=== PATIENT | male | born 1960 | race Caucasian/White ===

== ENCOUNTER 2021-08-14 17:40 | Inpatient (IN) | payer BC ==
[~2021-08-14] VITALS: Ht 162 cm; Wt 113.0 kg
[~2021-08-14 17:40] MED LIST: HYDR-34 PO; LISI20TA PO; LISINOPRIL; LOVA40TA2 PO; LOVASTATIN; OMEP20TA2 PO; TEMA30CA PO; TEMAZEPAM
--- NOTE | 2021-08-14 17:56 | ED Cough/URI ---
General Chief Complaint: COVID19 Suspect/Confirmed Stated Complaint: SOB Source: patient Exam Limitations: no limitations History of Present Illness Date Seen by Provider: Aug 14, 2021 Time Seen by Provider: 17:50 Initial Comments Patient is a 61-year-old male with known home Covid exposure developed Covid symptoms approximately 12 days ago who presents with progressive shortness of breath, chest wall pain with coughing and syncope. Patient's spouse tested po sitive for Covid 3 weeks ago. Patient started developing aches pains fever headache 12 days ago. He was placed on prednisone Zithromax and given an albuterol inhaler. Today patient had syncope with mild exertion. He is hypoxic on EMS arrival requiring 6 L of oxygen by nasal cannula to maintain oxygen greater than 90%. He denies current fever. No leg pain swelling. No other a cute symptoms or complaints. No history of COPD, asthma, CAD, congestive heart failure or diabetes Timing/Duration: getting worse, changing over time Severity/Quality: dry cough Prior Episodes/Possible Cause: other Modifying Factors: Improves With Oxygen, Improves With Other Associated Symptoms: cough, dizziness, lightheadedness, shortness of breath Allergies and Home Medications Allergies Coded Allergies: No Known Drug Allergies (Unverified , 09/18/11) Patient Home Medication List Home Medication List Reviewed: Yes Hydrocodone Bit/Acetaminophen (Lortab 7.5 Mg Tablet) 1 Ea Tablet, 1 EA PO Q 4 - 6 HR PRN PRN, (Reported) Entered as Reported by: FLORES LIMA on 06/06/12 0952 Lisinopril (Prinivil) 20 Mg Tablet, 20 MG PO BID, (Reported) Entered as Reported by: CANDIS CONTRERAS on 06/05/12 1632 Lovastatin (Lovastatin 40 Mg) 40 Mg Tablet, 1 EACH PO HS, (Reported) Entered as Reported by: CANDIS CONTRERAS on 06/05/12 1632 Omeprazole (Omeprazole) 20 Mg Tablet.dr, 20 MG PO BID, (Reported) Entered as Reported by: CANDIS CONTRERAS on 06/05/12 1632 Temazepam (Temazepam) 30 Mg Capsule, 30 MG PO HS, (Reported) Entered as Reported by: CANDIS CONTRERAS on 06/05/12 1706 Review of Systems Review of Systems Constitutional: see HPI EENTM: see HPI Respiratory: see HPI Cardiovascular: see HPI Gastrointestinal: see HPI Genitourinary: see HPI Musculoskeletal: see HPI Skin: see HPI Psychiatric/Neurological: See HPI Hematologic/Lymphatic: See HPI Immunological/Allergic: see HPI All Other Systems Reviewed Negative Unless Noted: Yes Past Kmywklh-Uuynkt-Dtwadm Hx Patient Social History Tobacco Use?: Yes Past Medical History Reproductive Disorders: No Physical Exam Vital Signs - First Documented 08/14/21 17:40 Temp 36.7 Pulse 110 Resp 25 B/P (MAP) 110/70 (83) Pulse Ox 93 O2 Delivery Room Air O2 Flow Rate 6.00 Capillary Refill : Height: 0'70.00" Weight: 159lbs. oz. 72.818377on; BMI Method: General Appearance: other (Acutely ill-appearing generally weak,) Eyes: Bilateral Eye Normal Inspection, Bilateral Eye PERRL, Bilateral Eye EOMI HEENT: PERRL/EOMI Neck: non-tender, supple Respiratory: decreased breath sounds, rhonchi, other Cardiovascular: tachycardia Gastrointestinal: non tender, soft Extremities: normal range of motion, non-tender Neurologic/Psychiatric: no motor/sensory deficits, alert, oriented x 3 Skin: other (Clammy) Focused Exam Sepsis Stage: Ruled Out Lactate Level 08/14/21 17:53: Lactic Acid Level 4.10*H Lactic Acid Level Laboratory Tests Test 08/14/21 17:53 Lactic Acid Level 4.10 MMOL/L (0.50-2.00) *H Progress/Results/Core Measures Suspected Sepsis SIRS Temperature: Pulse: Respiratory Rate: Laboratory Tests 08/14/21 17:53: White Blood Count 14.6H Blood Pressure / Mean: 08/14/21 17:53: Lactic Acid Level 4.10*H Laboratory Tests 08/14/21 17:53: Creatinine 0.99, INR Comment 0.9, Platelet Count 165, Total Bilirubin 0.5 Results/Orders Lab Results Laboratory Tests Test 08/14/21 17:53 08/14/21 18:17 Range/Units White Blood Count 14.6 H 4.3-11.0 10^3/uL Red Blood Count 4.56 4.30-5.52 10^6/uL Hemoglobin 14.2 13.3-17.7 g/dL Hematocrit 41 40-54 % Mean Corpuscular Volume 89 80-99 fL Mean Corpuscular Hemoglobin 31 25-34 pg Mean Corpuscular Hemoglobin Concent 35 32-36 g/dL Red Cell Distribution Width 13.1 10.0-14.5 % Platelet Count 165 130-400 10^3/uL Mean Platelet Volume 10.4 9.0-12.2 fL Immature Granulocyte % (Auto) 1 % Neutrophils (%) (Auto) 91 H 42-75 % Lymphocytes (%) (Auto) 5 L 12-44 % Monocytes (%) (Auto) 3 0-12 % Eosinophils (%) (Auto) 0 0-10 % Basophils (%) (Auto) 0 0-10 % Neutrophils # (Auto) 13.3 H 1.8-7.8 X 10^3 Lymphocytes # (Auto) 0.7 L 1.0-4.0 X 10^3 Monocytes # (Auto) 0.5 0.0-1.0 X 10^3 Eosinophils # (Auto) 0.0 0.0-0.3 10^3/uL Basophils # (Auto) 0.0 0.0-0.1 10^3/uL Immature Granulocyte # (Auto) 0.1 0.0-0.1 10^3/uL Prothrombin Time 12.4 12.2-14.7 SEC INR Comment 0.9 0.8-1.4 Activated Partial Thromboplast Time 24 24-35 SEC Sodium Level 123 *L 135-145 MMOL/L Potassium Level 6.0 H 3.6-5.0 MMOL/L Chloride Level 90 L 98-107 MMOL/L Carbon Dioxide Level 18 L 21-32 MMOL/L Anion Gap 15 H 5-14 MMOL/L Blood Urea Nitrogen 30 H 7-18 MG/DL Creatinine 0.99 0.60-1.30 MG/DL Estimat Glomerular Filtration Rate 77 BUN/Creatinine Ratio 30 Glucose Level 177 H 70-105 MG/DL Lactic Acid Level 4.10 *H 0.50-2.00 MMOL/L Calcium Level 8.0 L 8.5-10.1 MG/DL Corrected Calcium 8.7 8.5-10.1 MG/DL Total Bilirubin 0.5 0.1-1.0 MG/DL Aspartate Amino Transf (AST/SGOT) 106 H 5-34 U/L Alanine Aminotransferase (ALT/SGPT) 43 0-55 U/L Alkaline Phosphatase 54 40-136 U/L Troponin I < 0.30 <0.30 NG/ML C-Reactive Protein 5.98 H <0.50 MG/DL Total Protein 6.6 6.4-8.2 GM/DL Albumin 3.1 L 3.2-4.5 GM/DL Blood Gas Puncture Site RIGHT WRIST Blood Gas Patient Temperature 37.7 Arterial Blood pH 7.45 H 7.37-7.43 Arterial Blood Partial Pressure CO2 32 L 35-45 MMHG Arterial Blood Partial Pressure O2 60 L 79-93 MMHG Arterial Blood HCO3 22 L 23-27 MMOL/L Arterial Blood Total CO2 23.2 21.0-31.0 MMOL/L Arterial Blood Oxygen Saturation 92 L 94-100 % Arterial Blood Base Excess -1.1 -2.5-2.5 MMOL/L Roberth Test NEG Blood Gas Ventilator Setting NO Blood Gas Inspired Oxygen 6 My Orders Silvia - STEPHAN MATTSON DO Vital Signs: Every 4 Hours (Or (08/14/21 17:56) Monitor-Rhythm Ecg Trace Only (08/14/21 17:56) Cbc With Automated Diff (08/14/21 17:56) Comprehensive Metabolic Panel (08/14/21 17:56) Ferritin (08/14/21 17:56) Crp Fs (08/14/21 17:56) Troponin I Fs (08/14/21 17:56) Lactic Acid Analyzer (08/14/21 17:56) Protime With Inr (08/14/21 17:56) Partial Thromboplastin Time (08/14/21 17:56) Ekg Tracing (08/14/21 17:56) Albuterol Inhaler (Albuterol) (08/14/21 18:00) Arterial Blood Gas (08/14/21 17:56) Chest 1 View Ap/Pa Only (08/14/21 17:56) Dexamethasone Injection (Decadron Injec (08/14/21 18:00) Manual Differential (08/14/21 17:53) Fibrinogen (08/14/21 17:53) LDH (08/14/21 17:53) Piperacillin Sodium/Tazobactam (Zosyn Vi (08/14/21 18:45) Ns Iv 1000 Ml (Sodium Chloride 0.9%) (08/14/21 18:45) Vital Signs/I&O 08/14/21 17:40 Temp 36.7 Pulse 110 Resp 25 B/P (MAP) 110/70 (83) Pulse Ox 93 O2 Delivery Room Air O2 Flow Rate 6.00 Capillary Refill : Departure Communication (Admissions) Chest x-ray: Diffuse interstitial disease consistent with Covid adenitis per radiology report EKG: Sinus tach, no acute ST-T wave changes. Patient maintained on oxygen, IV fluids, Decadron, [address] angio ordered and pending. Will admit to [facility] Impression Primary Impression: Acute respiratory failure with hypoxia Additional Impressions: COVID Hyponatremia Renal insufficiency Hyperkalemia Disposition: ADMITTED INPATIENT Condition: Critical Admissions Decision to Admit Reason: Admit from ER (General) Decision to Admit/Date: Aug 14, 2021 Time/Decision to Admit Time: 18:37 (Dr. Pascual) Transfer Method of Transfer: EMS Departure-Patient Inst. Referrals: JONATAN ENGLISH DO (PCP/Family) Primary Care Physician STEPHAN MATTSON DO Aug 14, 2021 17:56
[2021-08-14] MEDS ORDERED: RT-ALBUTEROL HFA 8.5 GM INHALER IH PRN (18:00)
[2021-08-14 18:03] LABS: BASOPHILS % (AUTO) 0 % (0-10); EOSINOPHILS % (AUTO) 0 % (0-10); HEMATOCRIT 41 % (40-54); HEMOGLOBIN 14.2 g/dL (13.3-17.7); LYMPHOCYTES # (AUTO) 0.7 X 10^3 (1.0-4.0); LYMPHOCYTES % (AUTO) 5 % (12-44); MEAN CORPUSCULAR HEMOGLOBIN 31 pg (25-34); MEAN CORPUSCULAR HGB CONC 35 g/dL (32-36); MEAN CORPUSCULAR VOLUME 89 fL (80-99); MEAN PLATELET VOLUME 10.4 fL (9.0-12.2); MONOCYTES # (AUTO) 0.5 X 10^3 (0.0-1.0); MONOCYTES % (AUTO) 3 % (0-12); NEUTROPHILS # (AUTO) 13.3 X 10^3 (1.8-7.8); NEUTROPHILS % (AUTO) 91 % (42-75); PLATELET COUNT 165 10^3/uL (130-400); WHITE BLOOD COUNT 14.6 10^3/uL (4.3-11.0)
[2021-08-14 18:11] LABS: INR 0.9 (0.8-1.4); PROTHROMBIN TIME PATIENT 12.4 SEC (12.2-14.7)
--- NOTE | 2021-08-14 18:19 | Diagnostic Imaging Report ---
INDICATION: Shortness of air. COVID positive patient. COMPARISON: None. FINDINGS: Single frontal radiographic view of the chest was obtained and demonstrates low inspiratory volumes with moderate diffuse scattered patchy and confluent mixed interstitial and alveolar infiltrate. There is no large effusion or pneumothorax. Cardiac silhouette and pulmonary vasculature are within normal limits. Osseous structures show no gross acute abnormalities. IMPRESSION: 1. Moderate bilateral diffuse infiltrate/pneumonia. Correlation with COVID status is recommended. Dictated by: Dictated on workstation # [id number]
[2021-08-14 18:25] LABS: ALANINE AMINOTRANSFERASE 43 U/L (0-55); ALBUMIN 3.1 GM/DL (3.2-4.5); ALKALINE PHOSPHATASE 54 U/L (40-136); BILIRUBIN,TOTAL 0.5 MG/DL (0.1-1.0); BUN/CREATININE RATIO 30; CARBON DIOXIDE 18 MMOL/L (21-32); CHLORIDE 90 MMOL/L (98-107); CREATININE SERUM 0.99 MG/DL (0.60-1.30); GFR ESTIMATED 77; GLUCOSE 177 MG/DL (70-105); TOTAL PROTEIN 6.6 GM/DL (6.4-8.2)
[2021-08-14 18:28] LABS: SODIUM 123 MMOL/L (135-145)
[2021-08-14 18:29] LABS: ABG BASE EXCESS -1.1 MMOL/L (-2.5-2.5); ABG OXYGEN SATURATION 92 % (94-100); ABG PCO2 32 MMHG (35-45); ABG PH 7.45 (7.37-7.43); ABG PO2 60 MMHG (79-93); ABG TCO2 23.2 MMOL/L (21.0-31.0); ALLENS TEST NEG; INSPIRED O2 6; VENTILATOR NO
[2021-08-14 18:30] LABS: PATIENT TEMP 37.7
[2021-08-14] MEDS ORDERED: PIPERACILLIN SODIUM/TAZOBACTAM 4.5 GM in NS (IVPB) 100 ML IV ONE (18:45)
[2021-08-14] MEDS ORDERED: NS IV 1000 ML 1,000 ML IV SCH (18:45)
[2021-08-14] MEDS ORDERED: IOHEXOL 350 MG/ML 150 ML (OMNIPAQUE 350) VIAL IV ONE (19:00)
[2021-08-14] MEDS ORDERED: HOLD METFORMIN - RECEIVED CONTRAST 20 ML VIAL IV SCH (19:00)
[2021-08-14] MEDS ORDERED: NS 100 ML (IVPB) BAG IV ONE (19:00)
[2021-08-14 19:15] LABS: LYMPHOCYTES % (MANUAL) 6 %; MONOCYTES % (MANUAL) 2 %; NEUTROPHILS % (MANUAL) 92 %
[2021-08-14] MEDS ORDERED: HEParin DRIP 25000 UNIT/500ML 500 ML IV ONE (19:30)
[2021-08-14] MEDS ORDERED: HEParin 1000 UNIT/ML (10ML VIAL) FOR BOLUS IV SCH (19:30)
--- NOTE | 2021-08-14 19:30 | Diagnostic Imaging Report ---
EXAMINATION: CT angiography of the chest. TECHNIQUE: Contrast enhanced thin section helical images were obtained through the chest with intravenous contrast timed for the optimal opacification of the arterial structures per CTA protocol. Post-processing, reconstructions and interpretation of angiographic images of the vessels was performed. 3D MIP reconstructions were performed and reviewed. All CT scans use one or more of the following dose optimizing techniques: automated exposure control, MA and/or KvP adjustment based on patient size and exam type or iterative reconstruction. HISTORY: SOA, high risk PE. COMPARISON: None available. FINDINGS: Vascular: Filling defect within the right lower lobe segmental branch (series 11 image 52). The aorta is normal in caliber. Thyroid: The thyroid is normal. Mediastinum: Heart size is normal without significant pericardial effusion. No suspicious lymphadenopathy. Lungs and airways: There are patchy groundglass opacities and reticulations throughout both lungs. No pleural effusion or pneumothorax. The airways are normal. Upper abdomen: The subphrenic structures are normal. Musculoskeletal: Degenerative changes of the spine without suspicious osseous lesion or compression fracture. IMPRESSION: 1. Likely filling defect within a segmental branch of the right lower lobe pulmonary artery. 2. Patchy groundglass opacities and articulations throughout both lungs compatible with pneumonia. These findings were communicated to Dr. Mendez by Dr. Rupesh Vega at 7:25 PM on 08/14/2021. Dictated by: Dictated on workstation # [id number]
--- NOTE | 2021-08-14 22:00 | Tele-ICU Consult ---
History of Present Illness History of Present Illness Date Seen by Provider: Aug 14, 2021 Time Seen by Provider: 22:00 History of Present Illness 61 yo M came to ED with cough, SOB, multiple opacities on CXR and CT, Spouse recently tested positive for COVID. Pt has had Sx for 12 days. ED note mentions syncopal episode today and needing 6 lpm NC to maintain SpO2 95%. ABG 7.45/32/60 No Hx of asthma COPD, CAD, DM, CHF, WBC 14.6, LA 4, Hb 14.2, coagulation ok, will order d dimer, EKG shows sinus tach, QTc 427 Takes SAGAR, statin, + smoker, Started on IV Zosyn, Decadron, CTA also showed a pikely filling defect in segmental branch of RLL A] COVID PNA, small segmental pulm emb would continue on IV heparin, decadron, prone if can tolerate If worsens IV tociliumab Allergies and Home Medications Allergies Coded Allergies: No Known Drug Allergies (Unverified , 09/18/11) Home Medications Hydrocodone Bit/Acetaminophen 1 Ea Tablet, 1 EA PO Q 4 - 6 HR PRN PRN, (Reported) Lisinopril 20 Mg Tablet, 20 MG PO BID, (Reported) Lovastatin 40 Mg Tablet, 1 EACH PO HS, (Reported) Omeprazole 20 Mg Tablet.dr, 20 MG PO BID, (Reported) Temazepam 30 Mg Capsule, 30 MG PO HS, (Reported) Past Medical/Social/Family Hx Patient Social History Tobacco Use?: No Smoking Status: Never a Smoker Smokeless Tobacco Frequency: Never a User Use of E-Cig and/or Vaping dev: No Substance use?: No Alcohol Use?: Yes Alcohol type: Wine Alcohol Frequency: Once in a while Pt stated abuse/neglect: No Immunizations Up To Date Influenza Vaccine Up-to-Date: No; Not Current Current Status Advance Directives: Yes Advance Directive Location: Home Communicates: Verbally Primary Language: Chinese Preferred Spoken Language: Chinese Is interpretation needed?: No Sensory deficits: Vision impairment, Hearing impairment Additional sensory deficits: Some hearing. Vision impairment-trifocals Review of Systems Constitutional: see HPI EENTM: see HPI Respiratory: see HPI Cardiovascular: see HPI Gastrointestinal: see HPI Genitourinary: see HPI Musculoskeletal: see HPI Skin: see HPI Psychiatric/Neurological: See HPI Sepsis Event Evaluation Height, Weight, BMI Height: 0'70.00" Weight: 159lbs. oz. 72.666114qq; 247.13 BMI Method: Exam Exam Patient acknowledged, consented, and participated in this virtual visit which was conducted using real time audio/video Vital Signs Date Time Temp Pulse Resp B/P (MAP) Pulse Ox O2 Delivery O2 Flow Rate FiO2 08/14/21 21:32 36.1 98 20 122/80 95 Nasal Cannula 6.00 08/14/21 20:45 70 22 98/54 93 Nasal Cannula 6.00 08/14/21 17:40 36.7 110 25 110/70 (83) 93 Room Air 6.00 Height & Weight Height: 0'70.00" Weight: 159lbs. oz. 72.596460nv; 247.13 BMI Method: General Appearance: Mild Distress Respiratory: Decreased Breath Sounds Cardiovascular: Tachycardia Capillary Refill: Less Than 3 Seconds Gastrointestinal: normal bowel sounds, non tender, soft Results Lab Laboratory Tests 08/14/21 17:53 Assessment/Plan Assessment/Plan eICU admit note 61 yo M came to ED with cough, SOB, multiple opacities on CXR and CT, Spouse recently tested positive for COVID. Pt has had Sx for 12 days. ED note mentions syncopal episode today and needing 6 lpm NC to maintain SpO2 95%. ABG 7.45/32/60 No Hx of asthma COPD, CAD, DM, CHF, WBC 14.6, LA 4, Hb 14.2, coagulation ok, will order d dimer, EKG shows sinus tach, QTc 427 Takes SAGAR, statin, + smoker, Started on IV Zosyn, Decadron, CTA also showed a pikely filling defect in segmental branch of RLL A] COVID PNA, small segmental pulm emb would continue on IV heparin, decadron, prone if can tolerate If worsens IV tociliumab Also will do blood cultures, potassium 6.0, will give 15 g Kayexalate, Praneeth Alex MD Critical Care: Critically Ill Patient Time spent with patient (mins): 20 CINDY ALEX MD Aug 14, 2021 22:00
[2021-08-14] MEDS ORDERED: SOD POLYSTERENE 15 GM/60 ML (KAYEXALATE) UNIT DOSE PO ONE (22:30)
[2021-08-14] MEDS: RT-ALBUTEROL HFA 8.5 GM INHALER IH SCH (22:37)
[2021-08-14] MEDS: NS IV 1000 ML 1,000 ML IV SCH (23:08)
--- NOTE | 2021-08-15 01:34 | Progress Note ---
Standard Progress Note Progress Notes/Assess & Plan Date Seen by a Provider: Aug 15, 2021 Time Seen by a Provider: 01:29 Progress/Assessment & Plan called for lactate, had been 4, then down to 2.3 x 2 now 3.7, not in resp distress, BP ok, HR ok, will repeat in 2 hours along with BMP continue abx Potassium was 6.0, Kayexlate ordered, There is a medication order for po and IV potassium. I asked RN not to give any more potassium. Praneeth Alex MD Focused Exam Lactate Level 08/14/21 20:02: Lactic Acid Level 2.72*H 08/14/21 22:22: Lactic Acid Level 2.33*H 08/15/21 00:15: Lactic Acid Level 3.76*H Lactic Acid Level Laboratory Tests Test 08/14/21 22:22 08/15/21 00:15 Lactic Acid Level 2.33 MMOL/L (0.50-2.00) *H 3.76 MMOL/L (0.50-2.00) *H CINDY ALEX MD Aug 15, 2021 01:34
[2021-08-15] MEDS: PIPERACILLIN/TAZO 4.5 GM/NS 100 ML IV SCH ×6 (01:48→17:29)
[2021-08-15] MEDS: RT-ALBUTEROL HFA 8.5 GM INHALER IH SCH ×6 (02:34→22:47)
[2021-08-15 03:20] LABS: POTASSIUM 4.5 MMOL/L (3.6-5.0)
[2021-08-15 03:21] LABS: CALCIUM 7.9 MG/DL (8.5-10.1)
[2021-08-15 03:26] LABS: CREATININE SERUM 1.05 MG/DL (0.60-1.30)
[2021-08-15 05:50] LABS: BASOPHILS % (AUTO) 0 % (0-10); EOSINOPHILS % (AUTO) 0 % (0-10); HEMATOCRIT 40 % (40-54); HEMOGLOBIN 13.3 g/dL (13.3-17.7); LYMPHOCYTES # (AUTO) 0.8 10^3/uL (1.0-4.0); LYMPHOCYTES % (AUTO) 7 % (12-44); MEAN CORPUSCULAR HEMOGLOBIN 30 pg (25-34); MEAN CORPUSCULAR HGB CONC 34 g/dL (32-36); MEAN CORPUSCULAR VOLUME 90 fL (80-99); MEAN PLATELET VOLUME 9.3 fL (9.0-12.2); MONOCYTES # (AUTO) 0.5 10^3/uL (0.0-1.0); MONOCYTES % (AUTO) 4 % (0-12); NEUTROPHILS # (AUTO) 10.5 10^3/uL (1.8-7.8); NEUTROPHILS % (AUTO) 89 % (42-75); PLATELET COUNT 263 10^3/uL (130-400); WHITE BLOOD COUNT 11.8 10^3/uL (4.3-11.0)
[2021-08-15 06:01] LABS: ALBUMIN 3.1 GM/DL (3.2-4.5); POTASSIUM 4.2 MMOL/L (3.6-5.0)
[2021-08-15 06:02] LABS: CALCIUM 7.9 MG/DL (8.5-10.1)
[2021-08-15 06:04] LABS: TOTAL PROTEIN 5.7 GM/DL (6.4-8.2)
[2021-08-15] MEDS: NS IV 1000 ML 1,000 ML IV SCH ×2 (06:04→14:18)
[2021-08-15 06:05] LABS: BILIRUBIN,TOTAL 0.5 MG/DL (0.1-1.0)
[2021-08-15 06:07] LABS: CREATININE SERUM 1.01 MG/DL (0.60-1.30)
[2021-08-15 06:10] LABS: MAGNESIUM 1.9 MG/DL (1.6-2.4)
--- NOTE | 2021-08-15 06:14 | Progress Note ---
Standard Progress Note Progress Notes/Assess & Plan Date Seen by a Provider: Aug 15, 2021 Time Seen by a Provider: 06:13 Progress/Assessment & Plan Lactate improved, has high bladder residual, > 800 mL will insert Cam catheter Praneeth Farmer MD Final Diagnosis urinary retention Focused Exam Lactate Level 08/15/21 00:15: Lactic Acid Level 3.76*H 08/15/21 03:02: Lactic Acid Level 2.94*H 08/15/21 05:25: Lactic Acid Level Laboratory Tests Test 08/15/21 03:02 08/15/21 05:25 Lactic Acid Level 2.94 MMOL/L (0.50-2.00) *CINDY JOY MD Aug 15, 2021 06:14
--- NOTE | 2021-08-15 07:53 | History & Physical-Hospitalist ---
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 He is unvaccinated. Patient was found to have severe hyponatremia of 123 and elevated white count of 14,000. Patient was seen by eICU and I appreciate their management. Patient appears to have high risk for ventilation. Source: patient Exam Limitations: no limitations Date Seen 08/15/21 Time Seen by a Provider: 11:00 Attending Physician Cherie Pascual Bradley P Aprn Referring Physician Date of Admission Aug 14, 2021 at 21:25 Home Medications & Allergies Home Medications Reviewed patient Home Medication Reconciliation performed by pharmacy medication reconciliations agriculture technician and/or nursing. Patients Allergies have been reviewed. Allergies Allergies Coded Allergies No Known Drug Allergies ([id number]/29/11) Past Xvaqoyv-Vqqujt-Mvfxxl Hx Patient Social History Marrital Status: Employed/Student: employed Tobacco Use?: No Smoking Status: Never a Smoker Smokeless Tobacco Frequency: Never a User Use of E-Cig and/or Vaping dev: No Substance use?: No Alcohol Use?: Yes Alcohol type: Wine Alcohol Frequency: Once in a while Pt feels they are or have been: No Current Status Advance Directives: Yes Advance Directive Location: Home Communicates: Verbally Primary Language: Citizen [place] Preferred Spoken Language: Citizen [place] Is interpretation needed?: No Sensory deficits: Vision impairment, Hearing impairment Additional sensory deficits: Some hearing. Vision impairment-trifocals Past Medical History Sleep Apnea Currently Using CPAP: No Currently Using BIPAP: No Review of Systems Constitutional: see HPI, dizziness, fever, malaise, weakness EENTM: no symptoms reported Respiratory: cough, dyspnea on exertion Cardiovascular: no symptoms reported Gastrointestinal: loss of appetite Genitourinary: no symptoms reported Musculoskeletal: no symptoms reported Skin: no symptoms reported Psychiatric/Neurological: No Symptoms Reported All Other Systems Reviewed Negative Unless Noted: Yes Physical Exam Physical Exam Vital Signs Vital Signs - First Documented 08/14/21 17:40 Temp 36.7 Pulse 110 Resp 25 B/P (MAP) 110/70 (83) Pulse Ox 93 O2 Delivery Room Air O2 Flow Rate 6.00 Capillary Refill : Less Than 3 Seconds Height, Weight, BMI Height: 0'70.00" Weight: 159lbs. oz. 72.103164iw; 247.13 BMI Method: General Appearance: Anxious, Mild Distress Eyes: Right Eye Normal Inspection, Right Eye PERRL HEENT: PERRL/EOMI, Normal ENT Inspection, Pharynx Normal, Moist Mucous Membranes Neck: Full Range of Motion, Normal Inspection, Non Tender Respiratory: Chest Non Tender, Normal Breath Sounds, No Accessory Muscle Use, No Respiratory Distress, Decreased Breath Sounds Cardiovascular: Regular Rate, Rhythm, No Edema, No Gallop, No JVD, No Murmur, Normal Peripheral Pulses Gastrointestinal: Normal Bowel Sounds, No Organomegaly, No Pulsatile Mass, Non Tender, Soft Back: Normal Inspection, No CVA Tenderness, No Vertebral Tenderness Extremity: Normal Capillary Refill, Normal Inspection, Normal Range of Motion, Non Tender, No Calf Tenderness, No Pedal Edema Neurologic/Psychiatric: Alert, Oriented x3, No Motor/Sensory Deficits, Normal Mood/Affect Skin: Normal Color, Warm/Dry Lymphatic: No Adenopathy Results Results/Procedures Labs Laboratory Tests 08/14/21 17:53 08/15/21 03:02 08/15/21 05:25 Patient resulted labs reviewed. Assessment/Plan Admission Diagnosis Assessment: Acute hypoxic respiratory failure COVID-19 pneumonia high risk for intubation and within 2 weeks History of obstructive sleep apnea no longer used CPAP only mouth device Hyponatremia Leukocytosis Plan depletion causing elevated lactic acid Pulmonary embolism on heparin drip Plan: ICU Monitor closely High risk for intubation and Admission Status: Inpatient Order (span 2 midnights) Reason for Inpatient Admission: COVID-19 pneumonia respiratory failure Diagnosis/Problems Diagnosis/Problems (1) COVID Status: Acute (2) Acute respiratory failure with hypoxia Status: Acute CHERIE PASCUAL DO Aug 15, 2021 07:53
[2021-08-15] MEDS: POTASSIUM CL 10MEQ/50ML IVPB 50 ML IV SCH (07:59)
[2021-08-15] MEDS: KCL 20 MEQ TAB (K-DUR) PO SCH (08:00)
[2021-08-15] MEDS: MAGNESIUM 1 GM/100 ML IVPB 100 ML IV SCH (08:00)
--- NOTE | 2021-08-15 08:40 | Diagnostic Imaging Report ---
EXAMINATION: Chest 1 view HISTORY: Covid-19 COMPARISON: 08/14/2021 FINDINGS: Airspace opacities have improved and are now mild. No pleural effusion or pneumothorax. Heart size is normal. IMPRESSION: 1. Improved and now mild airspace opacities consistent with Covid-19. Dictated by: Dictated on workstation # [id number]
--- NOTE | 2021-08-15 09:33 | Tele-ICU Progress Note ---
Subjective Date Seen by a Provider: Aug 15, 2021 Time Seen by a Provider: 07:42 Subjective/Events-last exam This virtual visit was conducted using real time audio/video. Thank you for asking us to see this patient for respiratory insufficiency and distress due to Covid pna and RLL PE. Also hyponatremia. HPC: Recent events: nil new PE: Resting comfortably. VSS. O2 sat 91% on 6L NC HEENT: No obvious masses, adenopathy or JVD. Chest: Decreased w crackles. CV: RRR S1 S2 No murmur or added sounds. Abd: Non-tender. Bowel sounds Y. : Unremarkable. Cam Y. KNITTING TESTER/psychiatric: Alert and oriented, grossly intact. No obvious focal findings. Extremities: No edema. Capillary refill < 3 seconds. Skin: unremarkable. Results: Elevated lact 2.94. Decreased WCC to 11.8, Na 129. AB.45/32/60 on 6L. CXR w B infilts. A/P: Respiratory insufficiency/distress: Wean O2 as bill. Cont albut., Zosyn, Dex. Heparin infusion. Available chart/ vitals / labs /images reviewed. Video assessment done using teleICU camera, rest of exam as per RN. Respiratory: Continue present management with NC and alb. Monitor for increasing oxygenation needs and/or need for intubation.. Discussed with ONEYDA Duque. Asked RN to reach out to eICU if any questions or concerns later. Time spent with patient/coordination of care with other health professionals (mins): 18 Sepsis Event Evaluation Height, Weight, BMI Height: 0'70.00" Weight: 159lbs. oz. 72.511189kw; 247.13 BMI Method: Focused Exam Lactate Level 08/15/21 03:02: Lactic Acid Level 2.94*H 08/15/21 05:25: Lactic Acid Level 4.07*H 08/15/21 07:29: Lactic Acid Level 2.91*H Lactic Acid Level Laboratory Tests Test 08/15/21 07:29 Lactic Acid Level 2.91 MMOL/L (0.50-2.00) *H Exam Exam Patient acknowledged, consented, and participated in this virtual visit which was conducted using real time audio/video Vital Signs Date Time Temp Pulse Resp B/P (MAP) Pulse Ox O2 Delivery O2 Flow Rate FiO2 08/15/21 09:00 86 120/76 89 High Flow N/C 4.00 08/15/21 08:02 36.1 08/15/21 08:00 88 111/71 90 High Flow N/C 4.00 08/15/21 07:33 93 Nasal Cannula 4.00 08/15/21 07:00 82 109/69 94 High Flow N/C 4.00 08/15/21 07:00 86 08/15/21 06:00 90 117/71 92 High Flow N/C 4.00 08/15/21 05:00 88 119/79 92 High Flow N/C 4.00 08/15/21 04:42 36.8 08/15/21 04:00 80 145/76 95 High Flow N/C 4.00 08/15/21 04:00 95 Nasal Cannula 6.00 08/15/21 03:00 88 140/80 91 High Flow N/C 4.00 08/15/21 02:38 97 High Flow N/C 4.00 08/15/21 02:34 94 Nasal Cannula 5.00 08/15/21 02:00 79 112/69 94 Nasal Cannula 5.00 08/15/21 01:00 88 20 109/75 95 Nasal Cannula 5.00 08/15/21 01:00 88 08/15/21 00:00 80 18 95/63 96 Nasal Cannula 5.00 08/14/21 23:49 36.7 Nasal Cannula 6.00 08/14/21 23:00 92 23 111/71 96 Nasal Cannula 6.00 08/14/21 22:41 97 High Flow N/C 5.00 08/14/21 22:40 98 High Flow N/C 7.00 08/14/21 22:30 84 23 95 Nasal Cannula 6.00 08/14/21 22:22 94 Nasal Cannula 6.00 08/14/21 22:15 91 26 110/85 94 Nasal Cannula 6.00 08/14/21 22:00 101 23 121/82 94 Nasal Cannula 6.00 08/14/21 21:45 101 26 102/82 94 Nasal Cannula 6.00 08/14/21 21:37 101 08/14/21 21:32 36.1 98 20 122/80 95 Nasal Cannula 6.00 08/14/21 20:45 70 22 98/54 93 Nasal Cannula 6.00 08/14/21 17:40 36.7 110 25 110/70 (83) 93 Room Air 6.00 I & O 08/15/21 07:00 Intake Total 1550 ml Output Total 1250 ml Balance 300 ml Height & Weight Height: 0'70.00" Weight: 159lbs. oz. 72.813289ox; 247.13 BMI Method: General Appearance: Mild Distress Respiratory: Decreased Breath Sounds Cardiovascular: Tachycardia Capillary Refill: Less Than 3 Seconds Peripheral Pulses: 1+ Dorsalis Pedis (R), 1+ Left Dors-Pedis (L) (see free text) Gastrointestinal: normal bowel sounds, non tender, soft Results Lab Laboratory Tests 08/14/21 17:53 08/15/21 03:02 08/15/21 05:25 Assessment/Plan Assessment/Plan See free text Critical Care: Critically Ill Patient DONOVAN ALVAREZ MD Aug 15, 2021 09:32
[2021-08-16] MEDS: NS IV 1000 ML 1,000 ML IV SCH ×4 (01:47→22:44)
[2021-08-16] MEDS: PIPERACILLIN/TAZO 4.5 GM/NS 100 ML IV SCH ×6 (01:48→16:45)
[2021-08-16] MEDS: RT-ALBUTEROL HFA 8.5 GM INHALER IH SCH ×6 (02:28→22:20)
[2021-08-16 05:22] LABS: BASOPHILS % (AUTO) 0 % (0-10); EOSINOPHILS % (AUTO) 0 % (0-10); HEMATOCRIT 38 % (40-54); LYMPHOCYTES # (AUTO) 0.8 10^3/uL (1.0-4.0); LYMPHOCYTES % (AUTO) 5 % (12-44); MEAN CORPUSCULAR HEMOGLOBIN 31 pg (25-34); MEAN CORPUSCULAR HGB CONC 34 g/dL (32-36); MEAN CORPUSCULAR VOLUME 90 fL (80-99); MEAN PLATELET VOLUME 9.1 fL (9.0-12.2); MONOCYTES # (AUTO) 0.5 10^3/uL (0.0-1.0); MONOCYTES % (AUTO) 3 % (0-12); NEUTROPHILS # (AUTO) 13.8 10^3/uL (1.8-7.8); NEUTROPHILS % (AUTO) 91 % (42-75); PLATELET COUNT 319 10^3/uL (130-400); WHITE BLOOD COUNT 15.2 10^3/uL (4.3-11.0)
[2021-08-16 05:39] LABS: ALBUMIN 2.6 GM/DL (3.2-4.5); POTASSIUM 4.3 MMOL/L (3.6-5.0)
[2021-08-16 05:41] LABS: CALCIUM 7.4 MG/DL (8.5-10.1)
[2021-08-16 05:42] LABS: TOTAL PROTEIN 5.2 GM/DL (6.4-8.2)
[2021-08-16 05:44] LABS: BILIRUBIN,TOTAL 0.6 MG/DL (0.1-1.0)
[2021-08-16 05:45] LABS: PHOSPHORUS 2.6 MG/DL (2.3-4.7)
[2021-08-16 05:46] LABS: CREATININE SERUM 0.89 MG/DL (0.60-1.30)
[2021-08-16 05:48] LABS: MAGNESIUM 2.1 MG/DL (1.6-2.4)
--- NOTE | 2021-08-16 06:43 | Progress Note - Hospitalist ---
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 He is unvaccinated. Patient was found to have severe hyponatremia of 123 and elevated white count of 14,000. Patient was seen by eICU and I appreciate their management. Patient appears to have high risk for ventilation. Subjective/Events-last exam Patient stable Now on Vapotherm 40/100 Ativan ordered for panic attack Labs reviewed Ivermectin could have caused some issues that he is experiencing Review of Systems General: Fatigue Pulmonary: Dyspnea Focused Exam Lactate Level 08/15/21 09:30: Lactic Acid Level 2.30*H 08/15/21 11:58: Lactic Acid Level 3.82*H 08/15/21 14:28: Lactic Acid Level 2.11*H Objective Exam Vital Signs Vital Signs Date Time Temp Pulse Resp B/P (MAP) Pulse Ox O2 Delivery O2 Flow Rate FiO2 08/16/21 19:45 92 NIV Bilevel 75 08/16/21 19:41 35.2 75.00 08/16/21 18:46 61 32 08/16/21 18:00 105/67 Capillary Refill : Less Than 3 Seconds General Appearance: Anxious, Chronically ill, Mild Distress Respiratory: No Accessory Muscle Use, No Respiratory Distress, Decreased Breath Sounds Cardiovascular: Regular Rate, Rhythm Neurologic/Psychiatric: Alert, Oriented x3 Results/Procedures Lab Laboratory Tests 08/16/21 05:00 Patient resulted labs reviewed. Assessment/Plan Assessment and Plan Assess & Plan/Chief Complaint Assessment: Acute hypoxic respiratory failure COVID-19 pneumonia high risk for intubation and within 2 weeks History of obstructive sleep apnea no longer used CPAP only mouth device Hyponatremia Leukocytosis Plan depletion causing elevated lactic acid Pulmonary embolism on heparin drip Plan: ICU Monitor closely High risk for intubation and 08/16/2021: Continue supportive care Heparin drip High risk for intubation Maintain on Vapotherm Critical Care Critically Ill Patient Diagnosis/Problems Diagnosis/Problems (1) COVID Status: Acute (2) Acute respiratory failure with hypoxia Status: Acute IDALIA CARLSON DO Aug 16, 2021 06:43
[2021-08-16] MEDS: POTASSIUM CL 10MEQ/50ML IVPB 50 ML IV SCH (07:04)
[2021-08-16] MEDS: KCL 20 MEQ TAB (K-DUR) PO SCH (07:05)
[2021-08-16] MEDS: MAGNESIUM 1 GM/100 ML IVPB 100 ML IV SCH (07:05)
--- NOTE | 2021-08-16 08:14 | Tele-ICU Progress Note ---
Subjective Date Seen by a Provider: Aug 16, 2021 Time Seen by a Provider: 07:00 Subjective/Events-last exam This virtual visit was conducted using real time audio/video. Thank you for asking us to see this patient for respiratory insufficiency and distress due to Covid pna and RLL PE. Also hyponatremia. HPC: Recent events: increased O2 needs now on VT 40L/100%. PE: Resting comfortably. VSS. O2 sat 91% on VT HEENT: No obvious masses, adenopathy or JVD. Chest: Decreased w crackles. CV: RRR S1 S2 No murmur or added sounds. Abd: Non-tender. Bowel sounds Y. : Unremarkable. Cam Y. 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 No obvious focal findings. Extremities: No edema. Capillary refill < 3 seconds. Skin: unremarkable. Results: Elevated lact 2.94, WCC 15.2. Decreased Na 132. CXR w B infilts. A/P: Respiratory insufficiency/distress: Wean O2 as bill. Cont albut., Zosyn, Dex. Heparin infusion. Add Actemra 8 mg/kg IV once. Available chart/ vitals / labs /images reviewed. Video assessment done using teleICU camera, rest of exam as per RN. Monitor for increasing oxygenation needs and/or need for intubation. Add Ativan PRN IV Discussed with ONEYDA Benjamin. Asked RN to reach out to eICU if any questions or concerns later. Time spent with patient/coordination of care with other health professionals (mins): 19 Sepsis Event Evaluation Height, Weight, BMI Height: 0'70.00" Weight: 159lbs. oz. 72.565684qv; 247.13 BMI Method: Focused Exam Lactate Level 08/15/21 09:30: Lactic Acid Level 2.30*H 08/15/21 11:58: Lactic Acid Level 3.82*H 08/15/21 14:28: Lactic Acid Level 2.11*H Exam Exam Patient acknowledged, consented, and participated in this virtual visit which was conducted using real time audio/video Vital Signs Date Time Temp Pulse Resp B/P (MAP) Pulse Ox O2 Delivery O2 Flow Rate FiO2 08/16/21 07:15 88 Vapotherm 40.00 100 08/16/21 07:00 86 08/16/21 07:00 89 12 132/69 89 High Flow N/C 6.00 08/16/21 06:19 36.8 08/16/21 06:13 Nasal Cannula 6.00 08/16/21 06:00 82 18 132/81 89 High Flow N/C 6.00 08/16/21 05:00 90 27 128/72 93 High Flow N/C 6.00 08/16/21 04:00 36.9 78 20 71/69 90 High Flow N/C 6.00 08/16/21 04:00 Nasal Cannula 6.00 08/16/21 04:00 76 22 109/69 87 High Flow N/C 6.00 08/16/21 03:00 90 23 108/71 96 High Flow N/C 6.00 08/16/21 02:29 96 Vapotherm 30.00 90 08/16/21 02:00 82 21 110/73 97 High Flow N/C 6.00 08/16/21 01:40 81 22 71/66 90 High Flow N/C 6.00 08/16/21 01:30 96 Vapotherm 30.00 100 08/16/21 01:00 73 08/16/21 01:00 80 25 109/70 92 High Flow N/C 6.00 08/16/21 00:00 86 24 110/63 87 High Flow N/C 6.00 08/16/21 00:00 Nasal Cannula 6.00 08/15/21 23:00 101 22 116/68 91 High Flow N/C 6.00 08/15/21 22:47 90 High Flow N/C 15.00 08/15/21 22:34 87 116/66 89 High Flow N/C 6.00 08/15/21 22:00 87 20 114/65 88 High Flow N/C 6.00 08/15/21 21:00 85 18 105/53 90 High Flow N/C 6.00 08/15/21 20:09 37.3 08/15/21 20:00 82 20 101/49 90 High Flow N/C 6.00 08/15/21 20:00 Nasal Cannula 6.00 08/15/21 19:00 90 16 113/66 91 High Flow N/C 6.00 08/15/21 19:00 90 08/15/21 18:42 91 High Flow N/C 7.00 08/15/21 18:00 High Flow N/C 6.00 08/15/21 18:00 87 116/66 89 High Flow N/C 6.00 08/15/21 17:00 76 118/58 91 High Flow N/C 4.00 08/15/21 16:45 Nasal Cannula 6.00 08/15/21 16:06 37.4 08/15/21 16:00 94 107/52 92 High Flow N/C 4.00 08/15/21 15:38 91 Nasal Cannula 4.00 08/15/21 15:00 84 118/61 92 High Flow N/C 4.00 08/15/21 14:00 93 116/74 90 High Flow N/C 4.00 08/15/21 13:00 101 123/71 91 High Flow N/C 4.00 08/15/21 13:00 93 08/15/21 12:45 91 Nasal Cannula 4.00 08/15/21 12:00 98 100/67 90 High Flow N/C 4.00 08/15/21 11:29 37.1 08/15/21 11:04 91 Nasal Cannula 4.00 08/15/21 11:00 98 33 113/70 92 High Flow N/C 4.00 08/15/21 10:00 86 112/80 91 High Flow N/C 4.00 08/15/21 09:00 86 120/76 89 High Flow N/C 4.00 08/15/21 08:45 91 Nasal Cannula 4.00 I & O 08/16/21 07:00 Intake Total 2475 ml Output Total 3325 ml Balance -850 ml Height & Weight Height: 0'70.00" Weight: 159lbs. oz. 72.372839fv; 247.13 BMI Method: General Appearance: Anxious, Mild Distress HEENT: PERRL/EOMI, Normal ENT Inspection, Pharynx Normal, Moist Mucous Membranes Neck: Full Range of Motion, Normal Inspection, Non Tender Respiratory: Chest Non Tender, Normal Breath Sounds, No Accessory Muscle Use, No Respiratory Distress, Decreased Breath Sounds Cardiovascular: Regular Rate, Rhythm, No Edema, No Gallop, No JVD, No Murmur, Normal Peripheral Pulses Capillary Refill: Less Than 3 Seconds Peripheral Pulses: 1+ Dorsalis Pedis (R), 1+ Left Dors-Pedis (L) (see free text) Gastrointestinal: normal bowel sounds, non tender, soft Extremity: Normal Capillary Refill, Normal Inspection, Normal Range of Motion, Non Tender, No Calf Tenderness, No Pedal Edema Neurologic/Psychiatric: Alert, Oriented x3, No Motor/Sensory Deficits, Normal Mood/Affect Skin: Normal Color, Warm/Dry Lymphatic: No Adenopathy Results Lab Laboratory Tests 08/14/21 17:53 08/15/21 03:02 08/15/21 05:25 08/16/21 05:00 Assessment/Plan Assessment/Plan See free text. Critical Care: Critically Ill Patient DONOVAN ALVAREZ MD Aug 16, 2021 08:14
[2021-08-16] MEDS ORDERED: LORazepam INJ 2 MG/ML (ATIVAN) VIAL ONE (08:20)
[2021-08-16] MEDS: LORazepam INJ 2 MG/ML (ATIVAN) VIAL IVP PRN ×2 (08:21→14:08)
[2021-08-16] MEDS: HEParin 1000 UNIT/ML (10ML VIAL) FOR BOLUS IV SCH (08:22)
[2021-08-16] MEDS ORDERED: [UNRECOGNIZED DRUG - REMARK] IV ONE (09:15)
[2021-08-16] MEDS ORDERED: [UNRECOGNIZED DRUG - REMARK] IV NR (10:00)
[2021-08-16] MEDS: DexMEDEtomidine 250 ML DRIP 250 ML IV SCH (14:45)
[2021-08-16] MEDS: HEParin DRIP 25000 UNIT/500ML 500 ML IV SCH ×2 (15:07→22:45)
[2021-08-16 15:33] VITALS: BP 149/80
[2021-08-16 18:46] VITALS: BP 107/57
[2021-08-16 22:20] VITALS: BP 123/95
[2021-08-17] MEDS: PIPERACILLIN/TAZO 4.5 GM/NS 100 ML IV SCH ×6 (00:26→18:49)
[2021-08-17 02:20] VITALS: BP 133/80
[2021-08-17 03:35] LABS: BASOPHILS % (AUTO) 0 % (0-10); EOSINOPHILS % (AUTO) 0 % (0-10); HEMATOCRIT 39 % (40-54); HEMOGLOBIN 13.5 g/dL (13.3-17.7); LYMPHOCYTES % (AUTO) 7 % (12-44); MEAN CORPUSCULAR HEMOGLOBIN 31 pg (25-34); MEAN CORPUSCULAR HGB CONC 34 g/dL (32-36); MEAN CORPUSCULAR VOLUME 91 fL (80-99); MEAN PLATELET VOLUME 8.7 fL (9.0-12.2); MONOCYTES # (AUTO) 0.4 10^3/uL (0.0-1.0); MONOCYTES % (AUTO) 3 % (0-12); NEUTROPHILS # (AUTO) 12.9 10^3/uL (1.8-7.8); NEUTROPHILS % (AUTO) 89 % (42-75); PLATELET COUNT 334 10^3/uL (130-400); WHITE BLOOD COUNT 14.5 10^3/uL (4.3-11.0)
[2021-08-17 03:57] LABS: ALBUMIN 2.6 GM/DL (3.2-4.5); BILIRUBIN,TOTAL 0.6 MG/DL (0.1-1.0); CALCIUM 7.6 MG/DL (8.5-10.1); CREATININE SERUM 0.9 MG/DL (0.60-1.30); MAGNESIUM 2.4 MG/DL (1.6-2.4); PHOSPHORUS 3.4 MG/DL (2.3-4.7); POTASSIUM 4.5 MMOL/L (3.6-5.0); TOTAL PROTEIN 5.2 GM/DL (6.4-8.2)
[2021-08-17] MEDS: MAGNESIUM 1 GM/100 ML IVPB 100 ML IV SCH (04:17)
[2021-08-17] MEDS: KCL 20 MEQ TAB (K-DUR) PO SCH (04:17)
[2021-08-17] MEDS: POTASSIUM CL 10MEQ/50ML IVPB 50 ML IV SCH (04:17)
[2021-08-17] MEDS: HEParin 1000 UNIT/ML (10ML VIAL) FOR BOLUS IV SCH (04:18)
[2021-08-17] MEDS: NS IV 1000 ML 1,000 ML IV SCH ×3 (06:07→20:00)
[2021-08-17 06:51] VITALS: BP 126/88
[2021-08-17] MEDS: RT-ALBUTEROL HFA 8.5 GM INHALER IH SCH ×5 (06:51→21:53)
[2021-08-17] MEDS: DexMEDEtomidine 250 ML DRIP 250 ML IV SCH (08:59)
[2021-08-17] MEDS ORDERED: ENOXAPARIN 100 MG/1 ML (LOVENOX) SYR SC SCH (09:30)
--- NOTE | 2021-08-17 10:30 | Tele-ICU Progress Note ---
Subjective Date Seen by a Provider: Aug 17, 2021 Time Seen by a Provider: 10:30 Sepsis Event Evaluation Height, Weight, BMI Height: 0'70.00" Weight: 159lbs. oz. 72.380542ea; 36.50 BMI Method: Focused Exam Lactate Level 08/15/21 09:30: Lactic Acid Level 2.30*H 08/15/21 11:58: Lactic Acid Level 3.82*H 08/15/21 14:28: Lactic Acid Level 2.11*H Exam Exam Patient acknowledged, consented, and participated in this virtual visit which was conducted using real time audio/video Vital Signs Date Time Temp Pulse Resp B/P (MAP) Pulse Ox O2 Delivery O2 Flow Rate FiO2 08/17/21 10:00 43 30 123/73 94 NIV Bilevel 95.00 08/17/21 09:00 71 93 124/90 92 NIV Bilevel 95.00 08/17/21 08:59 46 138/89 08/17/21 08:55 76 138/89 08/17/21 08:00 63 32 138/89 92 NIV Bilevel 95.00 08/17/21 07:51 36.0 08/17/21 07:00 41 26 133/79 90 NIV Bilevel 95.00 08/17/21 06:51 41 28 90 95.00 08/17/21 06:45 43 08/17/21 06:00 46 133/88 89 NIV Bilevel 95.00 08/17/21 05:33 94 NIV Bilevel 95.00 08/17/21 05:24 35.2 08/17/21 05:00 53 31 137/87 91 NIV Bilevel 100.00 08/17/21 04:28 34.3 08/17/21 04:28 90 NIV Bilevel 100 08/17/21 04:00 43 139/90 90 NIV Bilevel 100.00 08/17/21 03:00 37 28 131/76 93 NIV Bilevel 100.00 08/17/21 02:20 40 23 90 100.00 08/17/21 02:00 38 133/80 93 NIV Bilevel 100.00 08/17/21 01:01 48 08/17/21 01:00 62 141/79 94 NIV Bilevel 100.00 08/17/21 00:33 35.2 08/17/21 00:27 93 NIV Bilevel 100 08/17/21 00:00 40 24 129/80 92 NIV Bilevel 100.00 08/16/21 23:00 41 25 133/78 91 NIV Bilevel 100.00 08/16/21 22:30 53 27 123/80 82 NIV Bilevel 100.00 08/16/21 22:20 50 32 90 75.00 08/16/21 22:00 56 27 140/82 88 NIV Bilevel 75.00 08/16/21 21:00 48 24 117/69 91 NIV Bilevel 75.00 08/16/21 20:30 49 24 116/72 90 NIV Bilevel 75.00 08/16/21 19:45 92 NIV Bilevel 75 08/16/21 19:41 35.2 91 NIV Bilevel 75.00 08/16/21 19:00 51 08/16/21 19:00 51 26 101/50 94 NIV Bilevel 75.00 08/16/21 18:46 61 32 92 75.00 08/16/21 18:00 53 27 105/67 93 NIV Bilevel 75.00 08/16/21 17:00 51 28 94/56 93 NIV Bilevel 75.00 08/16/21 16:30 58 30 103/77 96 NIV Bilevel 75.00 08/16/21 16:30 91 NIV Bilevel 70 08/16/21 16:00 62 32 93 NIV Bilevel 75.00 08/16/21 15:49 NIV Bilevel 75.00 08/16/21 15:33 66 41 93 75.00 08/16/21 15:00 71 37 98 Vapotherm 35.00 100.00 08/16/21 14:45 80 149/80 08/16/21 14:00 93 26 149/80 93 Vapotherm 35.00 100.00 08/16/21 13:31 Vapotherm 35.00 100.00 08/16/21 13:15 NIV Bilevel 100.00 08/16/21 13:00 88 08/16/21 13:00 73 133/78 90 Vapotherm 25.00 100.00 08/16/21 12:00 73 30 133/78 94 Vapotherm 25.00 100.00 08/16/21 11:52 91 Vapotherm 25.00 100 08/16/21 11:00 84 110/96 92 Vapotherm 25.00 100.00 08/16/21 10:58 Vapotherm 25.00 100.00 08/16/21 10:56 93 Vapotherm 25.00 100 I & O 08/17/21 07:00 Intake Total 2040 ml Output Total 1390 ml Balance 650 ml Height & Weight Height: 0'70.00" Weight: 159lbs. oz. 72.608523qh; 36.50 BMI Method: General Appearance: Anxious, Chronically ill, Mild Distress HEENT: PERRL/EOMI, Normal ENT Inspection, Pharynx Normal, Moist Mucous Membranes Neck: Full Range of Motion, Normal Inspection, Non Tender Respiratory: No Accessory Muscle Use, No Respiratory Distress, Decreased Breath Sounds Cardiovascular: Regular Rate, Rhythm Capillary Refill: Less Than 3 Seconds Peripheral Pulses: 1+ Dorsalis Pedis (R), 1+ Left Dors-Pedis (L) (see free text) Gastrointestinal: normal bowel sounds, non tender, soft Extremity: Normal Capillary Refill, Normal Inspection, Normal Range of Motion, Non Tender, No Calf Tenderness, No Pedal Edema Neurologic/Psychiatric: Alert, Oriented x3 Skin: Normal Color, Warm/Dry Lymphatic: No Adenopathy Results Lab Laboratory Tests 08/16/21 05:00 08/17/21 03:27 Assessment/Plan Assessment/Plan (Tele-ICU Physician , Progress Note ) Available chart/ vitals / labs / Images reviewed Video assessment done using teleICU camera, rest of exam as per RN Discussed with RN , EXAM PER RN Events overnight : Afebrile I/O = even Drips: precedex 0.3 Pressors: , hemodynamically stable Consultants: Hospital course: 08/14 - COVID , 7L o2 , IV Zosyn, Decadron, CT -CTA also showe small PE -08/16- VT 40L/100%. 08/17 - BIPAP /12 0 100% , rr 35 , TV 800 , MV 29L A/P AHRF / ARDS due to severe COVID19 -BIPAP 16/12 0 100% , rr 35 , TV 800 , MV 29L -prone position if able - conservative fluid strategy (aim for even or negative fluid balance FULL CODE - high risk for intubation CHECK BNP _ POSSIBLE DIURESIS ? 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 pending hyperglycemia - mild - ISS , close f/up on steroids transaminitis likely due to COVID-19. HyperKalemia- resolved - on SAGAR as outPt - - as per PCP bradicardia - suspect precedex, BP nl Lines : RIGHT picc 08/17 (Central Line Necessity Reviewed) Cam: + OG: Nutrition: on hold today Analgesia: Anxiety/ delirium VTE Prophylaxis: lovenox 100 bid Stress Ulcer Prophylaxis: PPI Glycemic Control: Plans in collaboration with bedside consultants and IM MDs. Discussed with RN to reach out if any questions or concerns A total of 33 minutes of critical care time was devoted to this patient today, required to treat and/or prevent further deterioration of critical care condit ion ( as above) . NEIL JOHNSON MD Aug 17, 2021 10:30
[2021-08-17 10:47] VITALS: BP 125/75
--- NOTE | 2021-08-17 11:20 | Pulmonary Progress Note ---
CIARRA SINGER MED STUDENT 08/17/21 1120: Subjective Date Seen by a Provider: Aug 17, 2021 Time Seen by a Provider: 07:30 Subjective/Events-last exam This is Kindra 61 yo male on day 4 of his hospital stay with the chief complaint of COVID-19 and hyponatremia. Pt was laying in bed upon entering the room the morning. He was calm, cooperative, and engaged during questioning. His O2 saturation was at 89% on 95 of BiPAP. According to the nursing staff he is now unable to keep adequate saturation levels with vapotherm alone. Pt was lethargic and kept his eyes closed for most of the encounter. He stated that he is eating and drinking well. His only concern was wanting to go home. A PICC line was place this morning. Review of Systems General: Fatigue; No Appetite Pulmonary: Cough Sepsis Event Evaluation Height, Weight, BMI Height: 0'70.00" Weight: 159lbs. oz. 72.319138ym; 36.50 BMI Method: Focused Exam Lactate Level 08/15/21 09:30: Lactic Acid Level 2.30*H 08/15/21 11:58: Lactic Acid Level 3.82*H 08/15/21 14:28: Lactic Acid Level 2.11*H Time of Focused Exam: 07:30 Respiratory: Chest Non Tender, No Accessory Muscle Use, Crackles (worse on the left) Cardiovascular: Regular Rate, Rhythm, No Edema, No Gallop, No Murmur, Normal Pe ripheral Pulses Skin: normal color, warm/dry Exam Exam Patient acknowledged, consented, and participated in this virtual visit which was conducted using real time audio/video Vital Signs Date Time Temp Pulse Resp B/P (MAP) Pulse Ox O2 Delivery O2 Flow Rate FiO2 08/17/21 11:00 42 21 123/75 93 NIV Bilevel 95.00 08/17/21 10:49 90.00 08/17/21 10:47 46 33 96 100.00 08/17/21 10:00 43 30 123/73 94 NIV Bilevel 95.00 08/17/21 09:00 71 93 124/90 92 NIV Bilevel 95.00 08/17/21 08:59 46 138/89 08/17/21 08:55 76 138/89 08/17/21 08:00 63 32 138/89 92 NIV Bilevel 95.00 08/17/21 07:51 36.0 08/17/21 07:00 41 26 133/79 90 NIV Bilevel 95.00 08/17/21 06:51 41 28 90 95.00 08/17/21 06:45 43 08/17/21 06:00 46 133/88 89 NIV Bilevel 95.00 08/17/21 05:33 94 NIV Bilevel 95.00 08/17/21 05:24 35.2 08/17/21 05:00 53 31 137/87 91 NIV Bilevel 100.00 08/17/21 04:28 34.3 08/17/21 04:28 90 NIV Bilevel 100 08/17/21 04:00 43 139/90 90 NIV Bilevel 100.00 08/17/21 03:00 37 28 131/76 93 NIV Bilevel 100.00 08/17/21 02:20 40 23 90 100.00 08/17/21 02:00 38 133/80 93 NIV Bilevel 100.00 08/17/21 01:01 48 08/17/21 01:00 62 141/79 94 NIV Bilevel 100.00 08/17/21 00:33 35.2 08/17/21 00:27 93 NIV Bilevel 100 08/17/21 00:00 40 24 129/80 92 NIV Bilevel 100.00 08/16/21 23:00 41 25 133/78 91 NIV Bilevel 100.00 08/16/21 22:30 53 27 123/80 82 NIV Bilevel 100.00 08/16/21 22:20 50 32 90 75.00 08/16/21 22:00 56 27 140/82 88 NIV Bilevel 75.00 08/16/21 21:00 48 24 117/69 91 NIV Bilevel 75.00 08/16/21 20:30 49 24 116/72 90 NIV Bilevel 75.00 08/16/21 19:45 92 NIV Bilevel 75 08/16/21 19:41 35.2 91 NIV Bilevel 75.00 08/16/21 19:00 51 08/16/21 19:00 51 26 101/50 94 NIV Bilevel 75.00 08/16/21 18:46 61 32 92 75.00 08/16/21 18:00 53 27 105/67 93 NIV Bilevel 75.00 08/16/21 17:00 51 28 94/56 93 NIV Bilevel 75.00 08/16/21 16:30 58 30 103/77 96 NIV Bilevel 75.00 08/16/21 16:30 91 NIV Bilevel 70 08/16/21 16:00 62 32 93 NIV Bilevel 75.00 08/16/21 15:49 NIV Bilevel 75.00 08/16/21 15:33 66 41 93 75.00 08/16/21 15:00 71 37 98 Vapotherm 35.00 100.00 08/16/21 14:45 80 149/80 08/16/21 14:00 93 26 149/80 93 Vapotherm 35.00 100.00 08/16/21 13:31 Vapotherm 35.00 100.00 08/16/21 13:15 NIV Bilevel 100.00 08/16/21 13:00 88 08/16/21 13:00 73 133/78 90 Vapotherm 25.00 100.00 08/16/21 12:00 73 30 133/78 94 Vapotherm 25.00 100.00 08/16/21 11:52 91 Vapotherm 25.00 100 I & O 08/17/21 07:00 Intake Total 2040 ml Output Total 1390 ml Balance 650 ml Height & Weight Height: 0'70.00" Weight: 159lbs. oz. 72.862273tp; 36.50 BMI Method: General Appearance: Anxious, Chronically ill, Mild Distress HEENT: PERRL/EOMI, Pharynx Normal, Moist Mucous Membranes Neck: Normal Inspection, Non Tender, Supple Respiratory: Chest Non Tender, No Accessory Muscle Use, Decreased Breath Sounds Cardiovascular: Regular Rate, Rhythm, No Edema, No Gallop, No Murmur, Normal Peripheral Pulses Capillary Refill: Less Than 3 Seconds Peripheral Pulses: 1+ Dorsalis Pedis (R), 1+ Left Dors-Pedis (L) (see free text) Gastrointestinal: normal bowel sounds, non tender, soft Extremity: Normal Capillary Refill, Normal Inspection, Normal Range of Motion, Non Tender, No Calf Tenderness, No Pedal Edema Neurologic/Psychiatric: Alert, Oriented x3 Skin: Normal Color, Warm/Dry Results Lab Laboratory Tests 08/16/21 05:00 08/17/21 03:27 Assessment/Plan Assessment/Plan COVID-19 pneumonia continue antibiotics and steroids obesity acute hypoxic respiratory failure LILIYA hyponatremia resolved with a sodium of 135 on 08/17 leukocytosis WBC of 14.5 on 08/17 maintain ICU status hypokalemia resolved with supplemental potassium high risk for intubation DVT/PE prophylaxis heparin heparin will be transitioned to lovenox today continue supplemental O2 BiPAP of 95 hypergycemia glucose of 154 on 08/17 repear CXR BNP ordered monitor I and O's downtrending out values NEIL JOHNSON MD 08/20/21 1427: Subjective Date Seen by a Provider: Aug 17, 2021 Supervisory-Addendum Brief Verification & Attestation Participated in pt care: history, MDM, physical Personally performed: history, MDM, supervision of care Care discussed with: Medical Student Procedures: n/a A medical student performed and documented this service. I reviewed information documented by the medical student . Medical student performed patients physical exam . Medical decision making was done during tele-rounds with this medical student and a bedside RN . Please see my notes for details /clarification of assessment and plans CIARRA SINGER MED STUDENT Aug 17, 2021 11:20 NEIL JOHNSON MD Aug 20, 2021 14:27
[2021-08-17] MEDS ORDERED: DEXA4TAB PO (11:58)
[2021-08-17] MEDS ORDERED: ATOM40CA6 PO (11:58)
[2021-08-17] MEDS ORDERED: OMEP20CA18 PO (11:58)
[2021-08-17] MEDS ORDERED: HYDR25TA4 PO (11:58)
[2021-08-17] MEDS ORDERED: ALB0.5V INH (11:58)
[2021-08-17] MEDS ORDERED: LISI20TA26 PO (11:58)
[2021-08-17] MEDS ORDERED: MELO15TA39 PO (11:58)
[2021-08-17] MEDS ORDERED: CYCL10TA9 PO (11:58)
[2021-08-17] MEDS ORDERED: AZIT250T12 PO (11:58)
[2021-08-17] MEDS ORDERED: ATOR40TA70 PO (11:58)
[2021-08-17] MEDS ORDERED: CHOL-34 PO (12:00)
[2021-08-17] MEDS: inSUlin ASPART (NovoLOG) 1 UNIT/0.01 ML (CHARGE PER UNIT) SC SCH ×2 (12:00→19:02)
[2021-08-17] MEDS ORDERED: ASCO-262 PO (12:00)
[2021-08-17] MEDS ORDERED: ZINC50TA58 PO (12:00)
--- NOTE | 2021-08-17 12:25 | Diagnostic Imaging Report ---
Clinical indication: Patient with hypoxia. PICC line the right side. Exam: Portable chest x-ray upright view. Comparisons: Chest x-ray dated 08/15/2021. Findings: There is interval progression of moderate to severe diffuse bilateral lung infiltrates with the left side more than right. There is no pleural effusion or pneumothorax. Cardiac silhouette is partially obscured, but appears within normal limits. Pulmonary vasculature is obscured. The remainder of this exam shows no significant interval change compared to the prior study of comparison. PICC line has been placed in the interim overlying the right side with tip in the cavoatrial junction region. IMPRESSION: 1: Interval placement right PICC line with tip in the cavoatrial junction region. 2: There is interval progression of moderate to severe diffuse bilateral lung infiltrates. Dictated by: Dictated on workstation # [id number]
[2021-08-17] MEDS ORDERED: FUROSEMIDE 40 MG/4 ML INJ (LASIX) IVP ONE (14:30)
[2021-08-17 14:38] VITALS: BP 123/68
--- NOTE | 2021-08-17 17:02 | Progress Note ---
Subjective Subjective/Events-last exam Patient Bipap dependent and unable to answer many questions due to shortness of breath. Review of Systems Pulmonary: Dyspnea, Cough Cardiovascular: Chest Pain; No: Palpitations Neurological: Weakness, Incoordination Focused Exam Lactate Level 08/15/21 09:30: Lactic Acid Level 2.30*H 08/15/21 11:58: Lactic Acid Level 3.82*H 08/15/21 14:28: Lactic Acid Level 2.11*H Time of Focused Exam: 07:30 Objective Exam Last Set of Vital Signs Vital Signs Date Time Temp Pulse Resp B/P (MAP) Pulse Ox O2 Delivery O2 Flow Rate FiO2 08/17/21 15:00 41 26 137/85 95 NIV Bilevel 95.00 08/17/21 07:51 36.0 08/17/21 04:28 100 Capillary Refill : Less Than 3 Seconds I&O Intake and Output 08/17/21 00:00 Intake Total 2275 ml Output Total 1900 ml Balance 375 ml Intake Oral 655 ml IV Total 1620 ml Output Urine Total 1900 ml General: Alert, Moderate Distress Lungs: Other (diminished breath sounds with exp wheezing and increased work of breathing without activity) Heart: Regular Rate, No Murmurs Abdomen: Normal Bowel Sounds, Soft, No Tenderness Extremities: No Edema, No Tenderness/Swelling Results/Procedures Lab Laboratory Tests 08/16/21 20:15: Activated Partial Thromboplast Time 73H 08/17/21 03:27: Activated Partial Thromboplast Time 66H, White Blood Count 14.5H, Red Blood Count 4.34, Hemoglobin 13.5, Hematocrit 39L, Mean Corpuscular Volume 91, Mean Corpuscular Hemoglobin 31, Mean Corpuscular Hemoglobin Concent 34, Red Cell Distribution Width 12.6, Platelet Count 334, Mean Platelet Volume 8.7L, Immature Granulocyte % (Auto) 2, Neutrophils (%) (Auto) 89H, Lymphocytes (%) (Auto) 7L, Monocytes (%) (Auto) 3, Eosinophils (%) (Auto) 0, Basophils (%) (Auto) 0, Neutrophils # (Auto) 12.9H, Lymphocytes # (Auto) 1.0, Monocytes # (Auto) 0.4, Eosinophils # (Auto) 0.0, Basophils # (Auto) 0.0, Immature Granulocyte # (Auto) 0.2H, Sodium Level 135, Potassium Level 4.5, Chloride Level 108H, Carbon Dioxide Level 17L, Anion Gap 10, Blood Urea Nitrogen 26H, Creatinine 0.90, Estimat Glomerular Filtration Rate 86, BUN/Creatinine Ratio 29, Glucose Level 154H, Calcium Level 7.6L, Corrected Calcium 8.7, Phosphorus Level 3.4, Magnesium Level 2.4, Total Bilirubin 0.6, Aspartate Amino Transf (AST/SGOT) 65H, Alanine Aminotransferase (ALT/SGPT) 37, Alkaline Phosphatase 72, B-Type Natriuretic Peptide 226.9H, Total Protein 5.2L, Albumin 2.6L 08/17/21 11:10: Activated Partial Thromboplast Time 46H 08/17/21 11:48: Glucometer 124H 08/17/21 13:05: Microbiology 08/15/21 Blood Culture - Preliminary, Resulted No growth 08/14/21 MRSA Screen - Final, Complete MRSA not isolated Assessment/Plan Assessment/Plan (1) Acute respiratory failure with hypoxia Status: Acute Assessment & Plan: 08/17: Bipap dependent, high risk of intubation, High dose steroids, S/p Actrema 08/16, MAT protocol, Tele ICU helping with ICU management (2) ARDS (adult respiratory distress syndrome) Status: Acute (3) Hypercoagulable state associated with COVID-19 Status: Acute Assessment & Plan: - ELAINE Dimas MD Aug 17, 2021 17:02
[2021-08-17 18:40] VITALS: BP 133/59
[2021-08-17] MEDS: ENOXAPARIN 100 MG/1 ML (LOVENOX) SYR SC SCH (18:49)
[2021-08-17] MEDS: LORazepam INJ 2 MG/ML (ATIVAN) VIAL IVP PRN (20:00)
[2021-08-18] VITALS (7 sets, daily range): BP systolic 78–161; BP diastolic 50–92
[2021-08-18] MEDS: inSUlin ASPART (NovoLOG) 1 UNIT/0.01 ML (CHARGE PER UNIT) SC SCH ×5 (00:04→22:59)
[2021-08-18] MEDS: PIPERACILLIN/TAZO 4.5 GM/NS 100 ML IV SCH ×6 (00:40→18:01)
[2021-08-18] MEDS: RT-ALBUTEROL HFA 8.5 GM INHALER IH SCH ×6 (01:39→21:37)
[2021-08-18] MEDS: NS IV 1000 ML 1,000 ML IV SCH ×3 (03:37→22:59)
[2021-08-18 03:44] LABS: BASOPHILS % (AUTO) 0 % (0-10); EOSINOPHILS % (AUTO) 0 % (0-10); HEMATOCRIT 38 % (40-54); HEMOGLOBIN 12.9 g/dL (13.3-17.7); LYMPHOCYTES % (AUTO) 6 % (12-44); MEAN CORPUSCULAR HEMOGLOBIN 31 pg (25-34); MEAN CORPUSCULAR HGB CONC 34 g/dL (32-36); MEAN CORPUSCULAR VOLUME 91 fL (80-99); MEAN PLATELET VOLUME 8.8 fL (9.0-12.2); MONOCYTES # (AUTO) 0.7 10^3/uL (0.0-1.0); MONOCYTES % (AUTO) 4 % (0-12); NEUTROPHILS # (AUTO) 15.4 10^3/uL (1.8-7.8); NEUTROPHILS % (AUTO) 87 % (42-75); PLATELET COUNT 275 10^3/uL (130-400); WHITE BLOOD COUNT 17.6 10^3/uL (4.3-11.0)
[2021-08-18 04:04] LABS: ALBUMIN 2.3 GM/DL (3.2-4.5); BILIRUBIN,TOTAL 0.5 MG/DL (0.1-1.0); CALCIUM 6.7 MG/DL (8.5-10.1); CREATININE SERUM 0.83 MG/DL (0.60-1.30); MAGNESIUM 2.2 MG/DL (1.6-2.4); PHOSPHORUS 2.9 MG/DL (2.3-4.7); TOTAL PROTEIN 4.3 GM/DL (6.4-8.2)
[2021-08-18] MEDS: ENOXAPARIN 100 MG/1 ML (LOVENOX) SYR SC SCH ×2 (04:20→18:01)
[2021-08-18] MEDS: DexMEDEtomidine 250 ML DRIP 250 ML IV SCH (05:23)
[2021-08-18] MEDS: POTASSIUM CL 10MEQ/50ML IVPB 50 ML IV SCH (05:41)
[2021-08-18] MEDS: MAGNESIUM 1 GM/100 ML IVPB 100 ML IV SCH (05:42)
[2021-08-18] MEDS: KCL 20 MEQ TAB (K-DUR) PO SCH (05:42)
[2021-08-18 07:47] LABS: ABG BASE EXCESS -3.5 MMOL/L (-2.5-2.5); ABG OXYGEN SATURATION 95 % (94-100); ABG PCO2 34 MMHG (35-45); ABG PO2 73 MMHG (79-93); ABG TCO2 21.8 MMOL/L (21.0-31.0); ALLENS TEST POSITIVE; INSPIRED O2 100% BIPAP; PATIENT TEMP 36.3; VENTILATOR NO
[2021-08-18] MEDS: PANTOPRAZOLE 40 MG (PROTONIX) VIAL IV SCH (07:55)
--- NOTE | 2021-08-18 10:37 | Tele-ICU Progress Note ---
Subjective Date Seen by a Provider: Aug 18, 2021 Time Seen by a Provider: 10:37 Sepsis Event Evaluation Height, Weight, BMI Height: 0'70.00" Weight: 159lbs. oz. 72.008051ww; 36.50 BMI Method: Focused Exam Lactate Level 08/15/21 11:58: Lactic Acid Level 3.82*H 08/15/21 14:28: Lactic Acid Level 2.11*H Time of Focused Exam: 07:30 Exam Exam Patient acknowledged, consented, and participated in this virtual visit which was conducted using real time audio/video Vital Signs Date Time Temp Pulse Resp B/P (MAP) Pulse Ox O2 Delivery O2 Flow Rate FiO2 08/18/21 10:13 65 29 98 100.00 08/18/21 10:00 42 35 143/71 95 NIV Bilevel 95.00 08/18/21 09:00 57 27 147/73 96 NIV Bilevel 95.00 08/18/21 08:45 36.7 08/18/21 08:00 68 45 147/94 91 NIV Bilevel 95.00 08/18/21 06:58 49 34 97 100.00 08/18/21 06:40 61 08/18/21 06:00 48 35 95 NIV Bilevel 95.00 08/18/21 05:23 52 148/82 08/18/21 05:00 56 10 95 NIV Bilevel 95.00 08/18/21 04:00 44 136/90 90 NIV Bilevel 95.00 08/18/21 04:00 90 NIV Bilevel 100 08/18/21 03:00 41 32 151/81 91 NIV Bilevel 95.00 08/18/21 02:00 54 143/87 93 NIV Bilevel 95.00 08/18/21 01:39 52 36 91 100.00 08/18/21 01:00 40 08/18/21 01:00 40 130/82 86 NIV Bilevel 95.00 08/18/21 00:01 36.5 08/18/21 00:00 38 33 128/76 86 NIV Bilevel 95.00 08/17/21 23:59 87 NIV Bilevel 100 08/17/21 23:00 38 128/80 87 NIV Bilevel 95.00 08/17/21 22:00 51 36 135/67 89 NIV Bilevel 95.00 08/17/21 21:53 52 32 91 100.00 08/17/21 21:00 53 95 NIV Bilevel 95.00 08/17/21 20:00 90 NIV Bilevel 100 08/17/21 20:00 48 29 129/63 94 NIV Bilevel 95.00 08/17/21 19:55 36.3 08/17/21 19:00 61 31 133/77 96 NIV Bilevel 95.00 08/17/21 19:00 60 08/17/21 18:40 69 32 97 100.00 08/17/21 18:00 63 61 133/59 97 NIV Bilevel 95.00 08/17/21 17:00 44 60 132/71 98 NIV Bilevel 95.00 08/17/21 16:00 90 NIV Bilevel 100 08/17/21 16:00 23 150/73 94 NIV Bilevel 95.00 08/17/21 15:00 41 26 137/85 95 NIV Bilevel 95.00 08/17/21 14:38 43 34 92 100.00 08/17/21 14:00 41 11 123/68 94 NIV Bilevel 95.00 08/17/21 13:00 49 41 124/72 87 NIV Bilevel 95.00 08/17/21 12:25 52 08/17/21 12:00 67 20 131/74 91 NIV Bilevel 95.00 08/17/21 12:00 90 NIV Bilevel 100 08/17/21 11:00 42 21 123/75 93 NIV Bilevel 95.00 08/17/21 10:49 90.00 08/17/21 10:47 46 33 96 100.00 I & O 08/18/21 07:00 Intake Total 250 ml Output Total 2475 ml Balance -2225 ml Height & Weight Height: 0'70.00" Weight: 159lbs. oz. 72.795236xe; 36.50 BMI Method: General Appearance: Anxious, Chronically ill, Mild Distress HEENT: PERRL/EOMI, Pharynx Normal, Moist Mucous Membranes Neck: Normal Inspection, Non Tender, Supple Respiratory: Chest Non Tender, No Accessory Muscle Use, Decreased Breath Sounds Cardiovascular: Regular Rate, Rhythm, No Edema, No Gallop, No Murmur, Normal Peripheral Pulses Capillary Refill: Less Than 3 Seconds Peripheral Pulses: 1+ Dorsalis Pedis (R), 1+ Left Dors-Pedis (L) (see free text) Gastrointestinal: normal bowel sounds, non tender, soft Extremity: Normal Capillary Refill, Normal Inspection, Normal Range of Motion, Non Tender, No Calf Tenderness, No Pedal Edema Neurologic/Psychiatric: Alert, Oriented x3 Skin: Normal Color, Warm/Dry Results Lab Laboratory Tests 08/17/21 03:27 08/18/21 03:30 Assessment/Plan Assessment/Plan (Tele-ICU Physician , Progress Note ) Available chart/ vitals / labs / Images reviewed Video assessment done using teleICU camera, rest of exam as per RN Discussed with RN , EXAM PER RN Events overnight : Afebrile I/O = neg 1700 Drips: precedex 0.3 Pressors: , hemodynamically stable Consultants: Hospital course: 08/14 - COVID , 7L o2 , IV Zosyn, Decadron, CT -CTA also showe small PE 08/16- VT 40L/100%. 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 pending hyperglycemia - mild - ISS , close f/up on steroids transaminitis likely due to COVID-19. HyperKalemia- resolved - on SAGAR as outPt - - as per PCP bradicardia - suspect precedex, BP nl Lines : RIGHT picc 08/17 (Central Line Necessity Reviewed) Cam: + OG: Nutrition: on hold today Analgesia: Anxiety/ delirium pecedex VTE Prophylaxis: lovenox 100 bid Stress Ulcer Prophylaxis: PPI Glycemic Control: Plans in collaboration with bedside consultants and IM MDs. Discussed with RN to reach out if any questions or concerns A total of 35 minutes of critical care time was devoted to this patient today, required to treat and/or prevent further deterioration of critical care condition ( as above) . NEIL JOHNSON MD Aug 18, 2021 10:37
[2021-08-18] MEDS ORDERED: CALCIUM GLUC. 10% 4.65 MEQ/10 ML VIAL IV ONE (10:45)
[2021-08-18] MEDS: LORazepam INJ 2 MG/ML (ATIVAN) VIAL IVP PRN (11:00)
--- NOTE | 2021-08-18 14:27 | Pulmonary Progress Note ---
EZE REESE MED STUDENT 08/18/21 1427: Subjective Date Seen by a Provider: Aug 18, 2021 Time Seen by a Provider: 07:35 Subjective/Events-last exam Solo is on bipap at 18/12 and 100% oxygen. He complained of shortness of breath and denied new complaints today including denying new pain. Per RN, he desaturates when lying on his back and needs to lie on his side or abdomen. Sepsis Event Evaluation Height, Weight, BMI Height: 0'70.00" Weight: 159lbs. oz. 72.924565pg; 36.50 BMI Method: Focused Exam Lactate Level 08/15/21 14:28: Lactic Acid Level 2.11*H Time of Focused Exam: 07:30 Exam Exam Patient acknowledged, consented, and participated in this virtual visit which was conducted using real time audio/video Vital Signs Date Time Temp Pulse Resp B/P (MAP) Pulse Ox O2 Delivery O2 Flow Rate FiO2 08/18/21 12:00 62 32 157/83 99 NIV Bilevel 95.00 08/18/21 12:00 90 NIV Bilevel 100 08/18/21 12:00 36.0 08/18/21 11:00 68 21 150/79 99 NIV Bilevel 95.00 08/18/21 10:13 65 29 98 100.00 08/18/21 10:00 42 35 143/71 95 NIV Bilevel 95.00 08/18/21 09:00 57 27 147/73 96 NIV Bilevel 95.00 08/18/21 08:45 36.7 08/18/21 08:00 68 45 147/94 91 NIV Bilevel 95.00 08/18/21 08:00 90 NIV Bilevel 100 08/18/21 06:58 49 34 97 100.00 08/18/21 06:40 61 08/18/21 06:00 48 35 95 NIV Bilevel 95.00 08/18/21 05:23 52 148/82 08/18/21 05:00 56 10 95 NIV Bilevel 95.00 08/18/21 04:00 44 136/90 90 NIV Bilevel 95.00 08/18/21 04:00 90 NIV Bilevel 100 08/18/21 03:00 41 32 151/81 91 NIV Bilevel 95.00 08/18/21 02:00 54 143/87 93 NIV Bilevel 95.00 08/18/21 01:39 52 36 91 100.00 08/18/21 01:00 40 08/18/21 01:00 40 130/82 86 NIV Bilevel 95.00 08/18/21 00:01 36.5 08/18/21 00:00 38 33 128/76 86 NIV Bilevel 95.00 08/17/21 23:59 87 NIV Bilevel 100 08/17/21 23:00 38 128/80 87 NIV Bilevel 95.00 08/17/21 22:00 51 36 135/67 89 NIV Bilevel 95.00 08/17/21 21:53 52 32 91 100.00 08/17/21 21:00 53 95 NIV Bilevel 95.00 08/17/21 20:00 90 NIV Bilevel 100 08/17/21 20:00 48 29 129/63 94 NIV Bilevel 95.00 08/17/21 19:55 36.3 08/17/21 19:00 61 31 133/77 96 NIV Bilevel 95.00 08/17/21 19:00 60 08/17/21 18:40 69 32 97 100.00 08/17/21 18:00 63 61 133/59 97 NIV Bilevel 95.00 08/17/21 17:00 44 60 132/71 98 NIV Bilevel 95.00 08/17/21 16:00 90 NIV Bilevel 100 08/17/21 16:00 23 150/73 94 NIV Bilevel 95.00 08/17/21 15:00 41 26 137/85 95 NIV Bilevel 95.00 08/17/21 14:38 43 34 92 100.00 I & O 08/18/21 07:00 Intake Total 250 ml Output Total 2475 ml Balance -2225 ml Height & Weight Height: 0'70.00" Weight: 159lbs. oz. 72.191826hx; 36.50 BMI Method: General Appearance: Anxious, Chronically ill, Mild Distress HEENT: PERRL/EOMI, Moist Mucous Membranes Neck: Normal Inspection, Non Tender, Supple Respiratory: Chest Non Tender; No Crackles; Decreased Breath Sounds; No Wheezing; Other (coarse breath sounds. On bipap 18/12/100% FiO2. Tachypneic. ) Cardiovascular: Regular Rate, Rhythm, No Edema, No Gallop, No Murmur, Normal Peripheral Pulses Capillary Refill: Less Than 3 Seconds Gastrointestinal: normal bowel sounds, non tender, soft Extremity: Normal Capillary Refill, Normal Inspection, Normal Range of Motion, Non Tender, No Calf Tenderness, No Pedal Edema Neurologic/Psychiatric: Alert, Oriented x3 Skin: Normal Color, Warm/Dry Results Lab Laboratory Tests 08/17/21 03:27 08/18/21 03:30 Assessment/Plan Assessment/Plan Covid-19 ARDS -on bipap, near max settings 18//100% -received Tocalizumab. Receiving Zosyn. -intubation likely in the future. Hypoalbuminemia -Unable to eat due to respiratory requirements -consider TPN if condition persists hypocalcemia -calcium gluconate. Recheck tomorrow DVT/PE prophylaxis -on lovenox 100mg BID NEIL JOHNSON MD 08/20/21 0916: Supervisory-Addendum Brief Verification & Attestation Participated in pt care: history, MDM, physical Personally performed: history, MDM, supervision of care Care discussed with: Medical Student Procedures: n/a A medical student performed and documented this service. I reviewed all information documented by the medical student . Medical student performed patients physical exam . Medical decision making was done during tele-rounds with this medical student and a bedside RN . Please see my notes for details /clarification. EZE REESE MED STUDENT Aug 18, 2021 14:27 NEIL JOHNSON MD Aug 20, 2021 09:16
[2021-08-18] MEDS ORDERED: PROPOFOL DRIP (ICU) 100 ML IV ONE (15:35)
[2021-08-18] MEDS ORDERED: proPOfol 200 MG/20 ML (DIPRIVAN) VIAL IV ONE (15:35)
[2021-08-18] MEDS ORDERED: HALOPERIDOL 5 MG/ML (HALDOL) VIAL IV PRN (15:45)
[2021-08-18] MEDS ORDERED: PROPOFOL DRIP (ICU) 100 ML IV SCH (15:45)
[2021-08-18] MEDS ORDERED: LORazepam INJ 2 MG/ML (ATIVAN) VIAL IVP NR (15:45)
--- NOTE | 2021-08-18 15:50 | Tele-ICU Progress Note ---
Progress Note Patient with respiratory failure, failed NIPPV - with rr > 40 , TV 1000 , MV 40 L also observed to have seizure -like activity ativan IV given Elective intubation done without complications Orders for sedation and vent settings 420-24 +16 100 ( TV 7 cc/kg IBW) placed in EMR propofol and fentanyl gtt ordered abg and cxr pending Focused Exam Height, Weight, BMI Height: 0'70.00" Weight: 159lbs. oz. 72.466228ak; 36.50 BMI Method: Time of Focused Exam: 07:30 NEIL JOHNSON MD Aug 18, 2021 15:50
[2021-08-18] MEDS: PROPOFOL DRIP (ICU) 100 ML IV SCH ×3 (16:00→23:01)
[2021-08-18] MEDS: fentaNYL DRIP PRE-MIX 250 ML IV SCH ×2 (16:00→21:06)
[2021-08-18] MEDS ORDERED: ROCURONIUM 10 MG/ML 5 ML SYRINGE IV ONE ×4 (16:08→19:15)
--- NOTE | 2021-08-18 16:11 | Diagnostic Imaging Report ---
INDICATION: Intubated patient. Respiratory failure. COMPARISON: 08/17/2021. FINDINGS: A single frontal radiographic view of the chest was obtained demonstrating an indwelling endotracheal tube with the tip at the lower level of the clavicular heads. A right upper extremity PICC line is seen with the tip in the low SVC. The lungs continue to show diffuse mixed interstitial and alveolar infiltrate. There appears to have been interval progression of airspace disease in the right lower lung as well as slight interval improvement on the left. No large effusion or pneumothorax is identified. Cardiac silhouette is heavily partially obscured but appears stable. Indwelling gastric tube is also seen with the tip and side-port likely in the stomach. IMPRESSION: 1. Lines and tubes as above. 2. Redemonstration of diffuse bilateral infiltrate with mixed interval change as described above. Dictated by: Dictated on workstation # [id number]
[2021-08-18] MEDS ORDERED: NS (IVPB) 250 ML IV ONE (16:15)
--- NOTE | 2021-08-18 16:15 | Anesthesia-Procedure Note ---
Procedures/Interventions Procedure Start/Stop/Diagnosis Date of Procedure: Aug 18, 2021 Start Time: 15:30 Stop Time: 15:55 Intubation RSI: Yes 100% pre-Ox, [id number]: Yes Intubation Method: orotracheal Videoscope used: Yes Grade View: 2 Medications: Propofol (200), Succinylcholine (100) Mask Ventilation: positive Positive End Tide CO2: Yes Breath Sounds after Intubation: bilateral-equal ETT Securred @ (cm): 23 Intubated with ease: Yes Intubation Complications: O2 saturation decreased Post Intubation Xray-done: Yes Post Procedure Intubation attempt 1 unable to visualize well due to mouth full of dried debris. Mouth suctioned. Sat to 68%. Pt masked back up to 80%. Attempt 2 without difficulty, Sat to 65%. good color change bagged while setting vent up. Care to ICU staff. Care turned over to: PROJECT DESIGN ENGINEER JOHNIE BILL CRNA Aug 18, 2021 16:15
[2021-08-18] MEDS ORDERED: NOREPINEPHRINE 8 MG/250 ML 250 ML IV ONE (16:20)
[2021-08-18] MEDS: NOREPINEPHRINE 8 MG/250 ML 250 ML IV SCH (16:22)
[2021-08-18 18:50] LABS: ABG BASE EXCESS -6.1 MMOL/L (-2.5-2.5); ABG OXYGEN SATURATION 94 % (94-100); ABG PCO2 47 MMHG (35-45); ABG PO2 84 MMHG (79-93); ABG TCO2 21.5 MMOL/L (21.0-31.0)
[2021-08-18 18:52] LABS: ABG PH 7.25 (7.37-7.43); INSPIRED O2 100%; VENTILATOR NO
[2021-08-18 18:53] LABS: PATIENT TEMP 36.5
[2021-08-18] MEDS ORDERED: SUCCINYLCHOLINE INJ 100 MG/5 ML SYR/VIAL INJ ONE (19:21)
--- NOTE | 2021-08-18 22:36 | Progress Note ---
Subjective Subjective/Events-last exam Patient uncomfortable and breathing >40 RR. Review of Systems Unable to complete due to distress Focused Exam Time of Focused Exam: 07:30 Objective Exam Last Set of Vital Signs Vital Signs Date Time Temp Pulse Resp B/P (MAP) Pulse Ox O2 Delivery O2 Flow Rate FiO2 08/18/21 21:37 86 20 95 90 08/18/21 20:50 35.8 08/18/21 20:00 Mechanical Ventilator 08/18/21 19:53 89/59 08/18/21 19:00 100.00 Capillary Refill : Less Than 3 Seconds I&O Intake and Output 08/18/21 00:00 Intake Total 370 ml Output Total 2165 ml Balance -1795 ml Intake Oral 0 ml IV Total 370 ml Output Urine Total 2165 ml General: Alert, Moderate Distress Lungs: Other (crackles diffuse) Heart: Regular Rate, No Murmurs Abdomen: Normal Bowel Sounds, Soft, No Tenderness Extremities: No Edema, No Tenderness/Swelling Results/Procedures Lab Laboratory Tests 08/18/21 03:30: White Blood Count 17.6H, Red Blood Count 4.18L, Hemoglobin 12.9L, Hematocrit 38L , Mean Corpuscular Volume 91, Mean Corpuscular Hemoglobin 31, Mean Corpuscular Hemoglobin Concent 34, Red Cell Distribution Width 12.7, Platelet Count 275, Mean Platelet Volume 8.8L, Immature Granulocyte % (Auto) 3, Neutrophils (%) (Auto) 87H, Lymphocytes (%) (Auto) 6L, Monocytes (%) (Auto) 4, Eosinophils (%) (Auto) 0, Basophils (%) (Auto) 0, Neutrophils # (Auto) 15.4H, Lymphocytes # (Auto) 1.0, Monocytes # (Auto) 0.7, Eosinophils # (Auto) 0.0, Basophils # (Auto) 0.0, Immature Granulocyte # (Auto) 0.4H, Sodium Level 141, Potassium Level 4.0, Chloride Level 113H, Carbon Dioxide Level 18L, Anion Gap 10, Blood Urea Nitrogen 35H, Creatinine 0.83, Estimat Glomerular Filtration Rate 94, BUN/Creatinine Ratio 42, Glucose Level 122H, Calcium Level 6.7L, Corrected Calcium 8.1L, Phosphorus Level 2.9, Magnesium Level 2.2, Total Bilirubin 0.5, Aspartate Amino Transf (AST/SGOT) 62H, Alanine Aminotransferase (ALT/SGPT) 36, Alkaline Phosphatase 159H, Total Protein 4.3L, Albumin 2.3L 08/18/21 07:40: Blood Gas Puncture Site RIGHT RADIAL, Blood Gas Patient Temperature 36.3, Arterial Blood pH 7.40, Arterial Blood Partial Pressure CO2 34L, Arterial Blood Partial Pressure O2 73L, Arterial Blood HCO3 21L, Arterial Blood Total CO2 21.8, Arterial Blood Oxygen Saturation 95, Arterial Blood Base Excess -3.5L, Roberth Test POSITIVE, Blood Gas Ventilator Setting NO, Blood Gas Inspired Oxygen 100% BIPAP 08/18/21 11:25: Glucometer 110 08/18/21 17:29: Glucometer 132H 08/18/21 18:43: Blood Gas Puncture Site UNK, Blood Gas Patient Temperature 36.5, Arterial Blood pH 7.25*L, Arterial Blood Partial Pressure CO2 47H, Arterial Blood Partial Pressure O2 84, Arterial Blood HCO3 20L, Arterial Blood Total CO2 21.5, Arterial Blood Oxygen Saturation 94, Arterial Blood Base Excess -6.1L, Roberth Test UNK, Blood Gas Ventilator Setting NO, Blood Gas Inspired Oxygen 100% 08/18/21 18:49: Glucometer 138H Microbiology 08/15/21 Blood Culture - Preliminary, Resulted No growth 08/14/21 MRSA Screen - Final, Complete MRSA not isolated Assessment/Plan Assessment/Plan (1) Acute respiratory failure with hypoxia Status: Acute Assessment & Plan: 08/17: Bipap dependent, high risk of intubation, High dose steroids, S/p Actrema 08/16, MAT protocol, Tele ICU helping with ICU management 08/18: High risk for intubation, high RR (2) ARDS (adult respiratory distress syndrome) Status: Acute (3) Hypercoagulable state associated with COVID-19 Status: Acute Assessment & Plan: - ELAINE Dimas MD Aug 18, 2021 22:36
[2021-08-19] VITALS (7 sets, daily range): BP systolic 92–211; BP diastolic 53–87
[2021-08-19] MEDS: fentaNYL DRIP PRE-MIX 250 ML IV SCH ×5 (01:23→20:56)
[2021-08-19] MEDS: RT-ALBUTEROL HFA 8.5 GM INHALER IH SCH ×6 (01:41→22:08)
[2021-08-19] MEDS: PROPOFOL DRIP (ICU) 100 ML IV SCH (03:51)
[2021-08-19 04:26] LABS: ABG BASE EXCESS -7.5 MMOL/L (-2.5-2.5); ABG OXYGEN SATURATION 95 % (94-100); ABG PCO2 50 MMHG (35-45); ABG PO2 89 MMHG (79-93); ABG TCO2 20.9 MMOL/L (21.0-31.0); BASOPHILS # (AUTO) 0.1 10^3/uL (0.0-0.1); BASOPHILS % (AUTO) 0 % (0-10); EOSINOPHILS % (AUTO) 0 % (0-10); HEMATOCRIT 45 % (40-54); HEMOGLOBIN 14.4 g/dL (13.3-17.7); LYMPHOCYTES # (AUTO) 1.2 10^3/uL (1.0-4.0); LYMPHOCYTES % (AUTO) 5 % (12-44); MEAN CORPUSCULAR HEMOGLOBIN 31 pg (25-34); MEAN CORPUSCULAR HGB CONC 32 g/dL (32-36); MEAN CORPUSCULAR VOLUME 95 fL (80-99); MEAN PLATELET VOLUME 9.2 fL (9.0-12.2); MONOCYTES % (AUTO) 4 % (0-12); NEUTROPHILS # (AUTO) 21.6 10^3/uL (1.8-7.8); NEUTROPHILS % (AUTO) 87 % (42-75); PLATELET COUNT 248 10^3/uL (130-400); WHITE BLOOD COUNT 24.9 10^3/uL (4.3-11.0)
[2021-08-19 04:35] LABS: ALLENS TEST YES-POS; INSPIRED O2 70%; PATIENT TEMP 36.2; VENTILATOR YES
[2021-08-19 04:44] LABS: ALBUMIN 2.6 GM/DL (3.2-4.5); BILIRUBIN,TOTAL 0.4 MG/DL (0.1-1.0); CALCIUM 7.4 MG/DL (8.5-10.1); CREATININE SERUM 1.44 MG/DL (0.60-1.30); MAGNESIUM 2.9 MG/DL (1.6-2.4); PHOSPHORUS 4.6 MG/DL (2.3-4.7); POTASSIUM 5.6 MMOL/L (3.6-5.0); TOTAL PROTEIN 5.2 GM/DL (6.4-8.2)
[2021-08-19 05:04] LABS: BAND NEUTROPHILS 5 %; LYMPHOCYTES % (MANUAL) 3 %; MONOCYTES % (MANUAL) 3 %; NEUTROPHILS % (MANUAL) 89 %; NUCLEATED RED BLOOD CELLS 1; POIKILOCYTOSIS SLIGHT; POLYCHROMASIA SLIGHT; SMUDGE CELLS MOD
[2021-08-19] MEDS: POTASSIUM CL 10MEQ/50ML IVPB 50 ML IV SCH (05:24)
[2021-08-19] MEDS: KCL 20 MEQ TAB (K-DUR) PO SCH (05:24)
[2021-08-19] MEDS: inSUlin ASPART (NovoLOG) 1 UNIT/0.01 ML (CHARGE PER UNIT) SC SCH ×4 (05:24→23:26)
[2021-08-19] MEDS: MAGNESIUM 1 GM/100 ML IVPB 100 ML IV SCH (05:24)
[2021-08-19] MEDS: ENOXAPARIN 100 MG/1 ML (LOVENOX) SYR SC SCH ×2 (05:35→17:49)
[2021-08-19] MEDS: NOREPINEPHRINE 8 MG/250 ML 250 ML IV SCH ×2 (05:36→20:31)
--- NOTE | 2021-08-19 06:49 | Occ Therapy Progress Note ---
Therapy Progress Note Pt is currently intubated. OT will continue to monitor pt's status and will initiate treatment when pt is medically stable to participate in skilled therapy. MAGGIE WAYNE Aug 19, 2021 06:49
--- NOTE | 2021-08-19 07:43 | Diagnostic Imaging Report ---
INDICATION: Respiratory distress. Comparison with 08/18/2021. FINDINGS: ET tube and NG tube remain in good position. There has been decrease in bilateral alveolar infiltrates since previous exam. The lungs are well aerated. No pneumothorax or pleural effusion. IMPRESSION: 1. Tubes and lines remain in good position. 2. Lungs are well-aerated with significant decrease in infiltrates bilaterally. Dictated by: Dictated on workstation # [id number]
[2021-08-19] MEDS: PANTOPRAZOLE 40 MG (PROTONIX) VIAL IV SCH ×2 (08:11→20:56)
--- NOTE | 2021-08-19 09:11 | Tele-ICU Progress Note ---
Subjective Date Seen by a Provider: Aug 19, 2021 Time Seen by a Provider: 11:39 Subjective/Events-last exam called for temp 38C, will order cooling blanket, LFT's a little high was intubated yesterday, on vent AC 28, Vt 500 FiO2 55% PEEP 18, SpO2 100% On Propofol, Precedex, Medrol, Haldol On lovenox 100 bid for small pulm emb CXR shows improvement, will lower PEEP to 14 bleeding during oral care, has pulm emb but will lower lovenox to 90 bid ,will get blood cultures TG's 597, will change to IV Versed Has new PICC line placed 3 days ago ABG 7., a little better than last ABG Sepsis Event Evaluation Height, Weight, BMI Height: 0'70.00" Weight: 159lbs. oz. 72.659893rn; 36.50 BMI Method: Focused Exam Time of Focused Exam: 07:30 Exam Exam Patient acknowledged, consented, and participated in this virtual visit which was conducted using real time audio/video Vital Signs Date Time Temp Pulse Resp B/P (MAP) Pulse Ox O2 Delivery O2 Flow Rate FiO2 08/19/21 07:20 Mechanical Ventilator 55.00 08/19/21 07:13 81 27 97 55 08/19/21 06:43 80 08/19/21 06:00 80 28 90/61 99 Mechanical Ventilator 70.00 08/19/21 05:36 81 110/74 08/19/21 05:04 85 28 99 70 08/19/21 05:00 89 28 96/64 98 Mechanical Ventilator 70.00 08/19/21 04:50 Mechanical Ventilator 70.00 08/19/21 04:00 95 Mechanical Ventilator 85 08/19/21 04:00 74 20 86/56 96 Mechanical Ventilator 85.00 08/19/21 03:51 91 99/71 08/19/21 03:00 92 20 100/67 99 Mechanical Ventilator 85.00 08/19/21 02:00 93 20 92/65 96 Mechanical Ventilator 85.00 08/19/21 01:41 92 20 91 85 08/19/21 01:23 Mechanical Ventilator 85.00 08/19/21 01:00 90 20 97/66 98 Mechanical Ventilator 90.00 08/19/21 01:00 90 08/19/21 00:00 95 Mechanical Ventilator 90 08/19/21 00:00 92 20 90/66 97 Mechanical Ventilator 90.00 08/18/21 23:15 92 15 95/62 96 Mechanical Ventilator 90.00 08/18/21 23:01 92 87/64 08/18/21 22:30 90 20 81/58 91 Mechanical Ventilator 90.00 08/18/21 22:00 86 20 76/55 93 Mechanical Ventilator 90.00 08/18/21 21:45 86 20 88/57 93 Mechanical Ventilator 90.00 08/18/21 21:37 86 20 95 90 08/18/21 21:00 86 15 90/61 96 Mechanical Ventilator 100.00 08/18/21 20:50 35.8 08/18/21 20:00 93 Mechanical Ventilator 100 08/18/21 20:00 86 19 93/64 96 Mechanical Ventilator 100.00 08/18/21 19:53 86 89/59 08/18/21 19:15 97 105/66 96 Mechanical Ventilator 100.00 08/18/21 19:00 Mechanical Ventilator 100.00 08/18/21 19:00 133 20 126/82 81 Mechanical Ventilator 100.00 08/18/21 19:00 133 08/18/21 18:50 97 100 08/18/21 18:46 75 20 92 100 08/18/21 18:00 99 20 118/80 93 NIV Bilevel 95.00 08/18/21 17:00 71 20 69/45 92 NIV Bilevel 95.00 08/18/21 16:29 75 20 89 100 08/18/21 16:22 77 86/61 08/18/21 16:00 84 37 80/55 79 NIV Bilevel 95.00 08/18/21 16:00 90 Mechanical Ventilator 100 08/18/21 16:00 80 90/60 08/18/21 15:00 52 42 155/96 98 NIV Bilevel 95.00 08/18/21 14:56 51 38 98 100.00 08/18/21 14:00 64 35 161/92 96 NIV Bilevel 95.00 08/18/21 13:00 64 35 163/84 99 NIV Bilevel 95.00 08/18/21 13:00 62 08/18/21 12:00 62 32 157/83 99 NIV Bilevel 95.00 08/18/21 12:00 90 NIV Bilevel 100 08/18/21 12:00 36.0 08/18/21 11:00 68 21 150/79 99 NIV Bilevel 95.00 08/18/21 10:13 65 29 98 100.00 08/18/21 10:00 42 35 143/71 95 NIV Bilevel 95.00 I & O 08/19/21 07:00 Intake Total 2790 ml Output Total 1040 ml Balance 1750 ml Height & Weight Height: 0'70.00" Weight: 159lbs. oz. 72.457693nl; 36.50 BMI Method: General Appearance: Anxious, Chronically ill, Mild Distress, Other (sedated, does not cough on suctioning) HEENT: PERRL/EOMI, Moist Mucous Membranes, Other (still has some blood in mough on suctioning, none in ET) Neck: Normal Inspection, Non Tender, Supple Respiratory: Chest Non Tender; No Crackles; Decreased Breath Sounds; No Wheezi ng; Other (coarse breath sounds. On bipap 18/12/100% FiO2. Tachypneic. ) Cardiovascular: Regular Rate, Rhythm, No Edema, No Gallop, No Murmur, Normal Peripheral Pulses Capillary Refill: Less Than 3 Seconds Gastrointestinal: normal bowel sounds, non tender, soft Extremity: Normal Capillary Refill, Normal Inspection, Normal Range of Motion, Non Tender, No Calf Tenderness, No Pedal Edema, Pedal Edema, Other (upper and lower edema) Neurologic/Psychiatric: Alert, Oriented x3, Other (pupils 1-2 mm and react to lines) Skin: Normal Color, Warm/Dry, Cool Results Lab Laboratory Tests 08/18/21 03:30 08/19/21 04:15 Assessment/Plan Assessment/Plan 08/14 - COVID , 7L o2 , IV Zosyn, Decadron, CT -CTA also showe small PE 08/16- VT 40L/100%. 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 pending hyperglycemia - mild - ISS , close f/up on steroids transaminitis likely due to COVID-19. HyperKalemia- resolved - on SAGAR as outPt - - as per PCP Now 5.6, will give 15 g Kayexalte also will stop Propofol and start IV Versed Critical Care: Ventilator Management Time spent with patient (mins): 35 CINDY ALEX MD Aug 19, 2021 09:11
--- NOTE | 2021-08-19 09:33 | Physical Therapy Progress Note ---
Therapy Progress Note Pt is currently intubated. PT will continue to monitor pt's status and will initiate treatment when pt is medically stable to participate in skilled therapy. KIMBERLEY DESOUZA PT Aug 19, 2021 09:33
[2021-08-19] MEDS ORDERED: SOD POLYSTERENE 15 GM/60 ML (KAYEXALATE) UNIT DOSE PO ONE (10:15)
[2021-08-19 10:22] LABS: ABG BASE EXCESS -6.4 MMOL/L (-2.5-2.5); ABG OXYGEN SATURATION 96 % (94-100); ABG PCO2 41 MMHG (35-45); ABG PO2 92 MMHG (79-93)
[2021-08-19 10:24] LABS: ABG PH 7.29 (7.37-7.43); ALLENS TEST YES-POS; PATIENT TEMP 38.3; VENTILATOR YES
[2021-08-19] MEDS: MIDAZOLAM DRIP PRE-MIX 100 ML IV SCH (10:50)
[2021-08-19] MEDS: NS IV 1000 ML 1,000 ML IV SCH ×2 (11:09→23:20)
[2021-08-19] MEDS: DexMEDEtomidine 250 ML DRIP 250 ML IV SCH (11:53)
--- NOTE | 2021-08-19 12:43 | Pulmonary Progress Note ---
EZE REESE MED STUDENT 08/19/21 1243: Subjective Date Seen by a Provider: Aug 19, 2021 Time Seen by a Provider: 07:29 Subjective/Events-last exam Solo Pope was intubated yesterday afternoon. He is currently at TV 500, Peep 18, RR 28, 55% O2. Receiving fentanyl, propofol, precedex for sedation. HPI limited due to sedation and intubation. Sepsis Event Evaluation Height, Weight, BMI Height: 0'70.00" Weight: 159lbs. oz. 72.784169dj; 36.50 BMI Method: Focused Exam Lactate Level 08/19/21 10:00: Lactic Acid Level 1.23 Time of Focused Exam: 07:30 Lactic Acid Level Laboratory Tests Test 08/19/21 10:00 Lactic Acid Level 1.23 MMOL/L (0.50-2.00) Exam Exam Patient acknowledged, consented, and participated in this virtual visit which was conducted using real time audio/video Vital Signs Date Time Temp Pulse Resp B/P (MAP) Pulse Ox O2 Delivery O2 Flow Rate FiO2 08/19/21 11:53 76 173/101 08/19/21 11:00 76 28 135/90 99 Mechanical Ventilator 55.00 08/19/21 10:50 73 28 134/78 08/19/21 10:04 79 28 100 45 08/19/21 10:00 80 28 117/79 100 Mechanical Ventilator 55.00 08/19/21 09:00 87 28 119/76 100 Mechanical Ventilator 55.00 08/19/21 08:30 96 Mechanical Ventilator 55.00 08/19/21 08:00 80 28 113/69 98 Mechanical Ventilator 55.00 08/19/21 07:20 Mechanical Ventilator 55.00 08/19/21 07:13 81 27 97 55 08/19/21 07:00 79 28 99/70 100 Mechanical Ventilator 70.00 08/19/21 06:43 80 08/19/21 06:00 80 28 90/61 99 Mechanical Ventilator 70.00 08/19/21 05:36 81 110/74 08/19/21 05:04 85 28 99 70 08/19/21 05:00 89 28 96/64 98 Mechanical Ventilator 70.00 08/19/21 04:50 Mechanical Ventilator 70.00 08/19/21 04:00 95 Mechanical Ventilator 85 08/19/21 04:00 74 20 86/56 96 Mechanical Ventilator 85.00 08/19/21 03:51 91 99/71 08/19/21 03:00 92 20 100/67 99 Mechanical Ventilator 85.00 08/19/21 02:00 93 20 92/65 96 Mechanical Ventilator 85.00 08/19/21 01:41 92 20 91 85 08/19/21 01:23 Mechanical Ventilator 85.00 08/19/21 01:00 90 20 97/66 98 Mechanical Ventilator 90.00 08/19/21 01:00 90 08/19/21 00:00 95 Mechanical Ventilator 90 08/19/21 00:00 92 20 90/66 97 Mechanical Ventilator 90.00 08/18/21 23:15 92 15 95/62 96 Mechanical Ventilator 90.00 08/18/21 23:01 92 87/64 08/18/21 22:30 90 20 81/58 91 Mechanical Ventilator 90.00 08/18/21 22:00 86 20 76/55 93 Mechanical Ventilator 90.00 08/18/21 21:45 86 20 88/57 93 Mechanical Ventilator 90.00 08/18/21 21:37 86 20 95 90 08/18/21 21:00 86 15 90/61 96 Mechanical Ventilator 100.00 08/18/21 20:50 35.8 08/18/21 20:00 93 Mechanical Ventilator 100 08/18/21 20:00 86 19 93/64 96 Mechanical Ventilator 100.00 08/18/21 19:53 86 89/59 08/18/21 19:15 97 105/66 96 Mechanical Ventilator 100.00 08/18/21 19:00 Mechanical Ventilator 100.00 08/18/21 19:00 133 20 126/82 81 Mechanical Ventilator 100.00 08/18/21 19:00 133 08/18/21 18:50 97 100 08/18/21 18:46 75 20 92 100 08/18/21 18:00 99 20 118/80 93 NIV Bilevel 95.00 08/18/21 17:00 71 20 69/45 92 NIV Bilevel 95.00 08/18/21 16:29 75 20 89 100 08/18/21 16:22 77 86/61 08/18/21 16:00 84 37 80/55 79 NIV Bilevel 95.00 08/18/21 16:00 90 Mechanical Ventilator 100 08/18/21 16:00 80 90/60 08/18/21 15:00 52 42 155/96 98 NIV Bilevel 95.00 08/18/21 14:56 51 38 98 100.00 08/18/21 14:00 64 35 161/92 96 NIV Bilevel 95.00 08/18/21 13:00 64 35 163/84 99 NIV Bilevel 95.00 08/18/21 13:00 62 I & O 08/19/21 07:00 Intake Total 2790 ml Output Total 1040 ml Balance 1750 ml Height & Weight Height: 0'70.00" Weight: 159lbs. oz. 72.393993ql; 36.50 BMI Method: General Appearance: WD/WN, Chronically ill, Obese, Other (sedated, does not cough on suctioning. Intubated. ) HEENT: Moist Mucous Membranes, Other (still has some blood in mouth on suction ing, none in ET. Pupils constricted but reactive to light. ) Neck: Normal Inspection, Non Tender, Supple Respiratory: No Accessory Muscle Use; No Crackles; Decreased Breath Sounds; No Wheezing; Other (coarse breath sounds. tachypneic) Cardiovascular: Regular Rate, Rhythm, No Gallop, No Murmur, Normal Peripheral Pulses Capillary Refill: Less Than 3 Seconds Gastrointestinal: normal bowel sounds, non tender, soft Extremity: Normal Capillary Refill, Normal Inspection, Normal Range of Motion, Non Tender, No Calf Tenderness, Pedal Edema, Other (upper and lower edema) Neurologic/Psychiatric: No Alert; Other (pupils 1-2 mm and react to light) Skin: Normal Color, Cool, Damp Results Lab Laboratory Tests 08/18/21 03:30 08/19/21 04:15 Assessment/Plan Assessment/Plan Covid 19 pneumonia -on Zosyn ARDS respiratory acidosis intubated, TV 500, Peep 18, RR 28, FiO2 55% -drop peep to 14 and see how patient responds -decrease sedation receiving decadron since 08/14 sepsis -bordeline blood pressure this morning -cool clammy skin leukocytosis -WBC up 24.9 today from 17.8 -obtain blood cultures, sputum cultures, urine culture -start continuous temperature monitoring GANESH -creatinine 1.44 from 1.08 yesterday. BUN elevated at 46 -receiving IVF at 83mL/hour Hyperkalemia -potassium 5.6 from 4's yesterday. -start kayexelate GI prophylaxis -Protonix DVT/PE prophylaxis -on Lovenox Equipment: IV access left basilic vein Cam catheter in place intubated with ET tube and OG tube 08/18 CINDY ALEX MD 08/19/211816: Subjective Subjective/Events-last exam see my progress note Assessment/Plan Assessment/Plan see my progress note, K high, ordered Kayexalte, Calcium low, will replace Critical Care: Ventilator Management Supervisory-Addendum Brief Verification & Attestation Participated in pt care: history Personally performed: exam, history Care discussed with: Medical Student Procedures: n/a Results interpretation: Verified all documentation see my progress note EZE REESE MED STUDENT Aug 19, 2021 12:43 CINDY ALEX MD Aug 19, 2021 18:17
--- NOTE | 2021-08-19 13:43 | Anesthesia-Procedure Note ---
Procedures/Interventions Procedure Start/Stop/Diagnosis Date of Procedure: Aug 19, 2021 Start Time: 13:24 Stop Time: 13:39 Arterial Line Arterial Line Catheter: 20G Type: Radial Location: Right Procedure: prepped, draped in sterile fashion, good wave-form was obtained, patient tolerated procedure well, no immediate complications, post procedure area cleaned, post procedure dressing applied CARI DILLARD CRNA Aug 19, 2021 13:43
[2021-08-19 15:10] LABS: POTASSIUM 3.7 MMOL/L (3.6-5.0)
[2021-08-19 15:15] LABS: CREATININE SERUM 0.83 MG/DL (0.60-1.30)
[2021-08-19 15:38] LABS: CALCIUM 5.7 MG/DL (8.5-10.1)
--- NOTE | 2021-08-19 17:54 | Progress Note ---
Standard Progress Note Progress Notes/Assess & Plan Date Seen by a Provider: Aug 19, 2021 Time Seen by a Provider: 17:51 Progress/Assessment & Plan called for calcium 5.9, will replace alb 2.6, corrected 6.8, will replace with Ca gluconate Praneeth Alex MD Focused Exam Lactate Level 08/19/21 10:00: Lactic Acid Level 1.23 Time of Focused Exam: 07:30 CINDY ALEX MD Aug 19, 2021 17:54
[2021-08-19] MEDS ORDERED: CALCIUM GLUC. 10% 4.65 MEQ/10 ML VIAL IV NR (18:00)
--- NOTE | 2021-08-19 22:17 | Progress Note ---
Subjective Subjective/Events-last exam Intubated and Sedated ON events: during oral care patient started having bleeding and OG is dark black Review of Systems Unable to complete due to distress Focused Exam Lactate Level 08/19/21 10:00: Lactic Acid Level 1.23 Time of Focused Exam: 07:30 Objective Exam Last Set of Vital Signs Vital Signs Date Time Temp Pulse Resp B/P (MAP) Pulse Ox O2 Delivery O2 Flow Rate FiO2 08/19/21 19:00 70 08/19/21 18:57 28 95 45 08/19/21 18:00 122/65 Mechanical Ventilator 55.00 08/18/21 20:50 35.8 Capillary Refill : Less Than 3 Seconds I&O Intake and Output 08/19/21 00:00 Intake Total 1940 ml Output Total 1370 ml Balance 570 ml Intake Oral 0 ml IV Total 1940 ml Output Urine Total 1370 ml General: Other (Intubated and sedated) Lungs: Other (diminished breath sounds, + crackles) Heart: Regular Rate, No Murmurs Abdomen: Soft Extremities: No Tenderness/Swelling (pitting edema), Other Results/Procedures Lab Laboratory Tests 08/18/21 22:58: Glucometer 127H 08/19/21 04:15: White Blood Count 24.9H, Red Blood Count 4.71, Hemoglobin 14.4, Hematocrit 45, Mean Corpuscular Volume 95, Mean Corpuscular Hemoglobin 31, Mean Corpuscular Hemoglobin Concent 32, Red Cell Distribution Width 13.5, Platelet Count 248, Mean Platelet Volume 9.2, Immature Granulocyte % (Auto) 4, Neutrophils (%) (Auto) 87H, Lymphocytes (%) (Auto) 5L, Monocytes (%) (Auto) 4, Eosinophils (%) (Auto) 0, Basophils (%) (Auto) 0, Neutrophils # (Auto) 21.6H, Lymphocytes # (Auto) 1.2, Monocytes # (Auto) 1.0, Eosinophils # (Auto) 0.0, Basophils # (Auto) 0.1, Immature Granulocyte # (Auto) 1.0H, Neutrophils % (Manual) 89, Lymphocytes % (Manual) 3, Monocytes % (Manual) 3, Band Neutrophils 5, Nucleated Red Blood Cells 1, Smudge Cells MOD, Polychromasia SLIGHT, Poikilocytosis SLIGHT, Blood Gas Puncture Site RT RAD, Blood Gas Patient Temperature 36.2, Arterial Blood pH 7.20*L, Arterial Blood Partial Pressure CO2 50H, Arterial Blood Partial Pressure O2 89, Arterial Blood HCO3 19L, Arterial Blood Total CO2 20.9L, Arterial Blood Oxygen Saturation 95, Arterial Blood Base Excess -7.5L, Roberth Test YES-POS, Blood Gas Ventilator Setting YES, Blood Gas Inspired Oxygen 70%, Sodium Level 141, Potassium Level 5.6H, Chloride Level 112H, Carbon Dioxide Level 17L, Anion Gap 12, Blood Urea Nitrogen 46H, Creatinine 1.44H, Estimat Glomerular Filtration Rate 50, BUN/Creatinine Ratio 32, Glucose Level 130H, Calcium Level 7.4L, Corrected Calcium 8.5, Phosphorus Level 4.6, Magnesium Level 2.9H, Total Bilirubin 0.4, Aspartate Amino Transf (AST/SGOT) 60H, Alanine Aminotransferase (ALT/SGPT) 45, Alkaline Phosphatase 212H, Total Protein 5.2L, Albumin 2.6L, Triglycerides Level 597H 08/19/21 10:00: Blood Gas Puncture Site R RAD, Blood Gas Patient Temperature 38.3, Arterial Blood pH 7.29*L, Arterial Blood Partial Pressure CO2 41, Arterial Blood Partial Pressure O2 92, Arterial Blood HCO3 19L, Arterial Blood Total CO2 20.0L, Arterial Blood Oxygen Saturation 96, Arterial Blood Base Excess -6.4L, Roberth Test YES-POS, Blood Gas Ventilator Setting YES, Blood Gas Inspired Oxygen 55%, Lactic Acid Level 1.23 08/19/21 11:44: Glucometer 126H 08/19/21 14:51: Sodium Level 145, Potassium Level 3.7, Chloride Level 121H, Carbon Dioxide Level 16L, Anion Gap 8, Blood Urea Nitrogen 35H, Creatinine 0.83, Estimat Glomerular Filtration Rate 94, BUN/Creatinine Ratio 42, Glucose Level 111H, Calcium Level 5.7#*L 08/19/21 17:47: Glucometer 139H Microbiology 08/19/21 Gram Stain - Final, Resulted 08/19/21 Sputum Culture, Resulted Pending 08/15/21 Blood Culture - Preliminary, Resulted No growth Assessment/Plan Assessment/Plan (1) Acute respiratory failure with hypoxia Status: Acute Assessment & Plan: 08/17: Bipap dependent, high risk of intubation, High dose steroids, S/p Actrema 08/16, MAT protocol, Tele ICU helping with ICU management 08/18: High risk for intubation, high RR 08/19: Intubated yesterday afternoon, eICU managing (2) ARDS (adult respiratory distress syndrome) Status: Acute (3) Pulmonary embolism Status: Acute Assessment & Plan: 08/19: lovenox decreased 90 BID due to bleeding Qualifiers: (4) Hypercoagulable state associated with COVID-19 Status: Acute Assessment & Plan: - Lovenox ELAINE CUMMINGS MD Aug 19, 2021 22:17
[2021-08-20] MEDS: fentaNYL DRIP PRE-MIX 250 ML IV SCH ×5 (01:39→21:10)
[2021-08-20] MEDS: RT-ALBUTEROL HFA 8.5 GM INHALER IH SCH ×6 (02:33→22:44)
[2021-08-20 02:34] VITALS: BP 105/52
[2021-08-20] MEDS: MIDAZOLAM DRIP PRE-MIX 100 ML IV SCH (03:41)
[2021-08-20 04:20] LABS: ABG BASE EXCESS -3.1 MMOL/L (-2.5-2.5); ABG OXYGEN SATURATION 83 % (94-100); ABG PCO2 33 MMHG (35-45); ABG PH 7.41 (7.37-7.43); ABG PO2 50 MMHG (79-93); ABG TCO2 21.9 MMOL/L (21.0-31.0); BASOPHILS % (AUTO) 0 % (0-10); EOSINOPHILS % (AUTO) 0 % (0-10); HEMATOCRIT 38 % (40-54); HEMOGLOBIN 12.7 g/dL (13.3-17.7); LYMPHOCYTES # (AUTO) 1.2 10^3/uL (1.0-4.0); LYMPHOCYTES % (AUTO) 6 % (12-44); MEAN CORPUSCULAR HEMOGLOBIN 31 pg (25-34); MEAN CORPUSCULAR HGB CONC 33 g/dL (32-36); MEAN CORPUSCULAR VOLUME 91 fL (80-99); MONOCYTES # (AUTO) 0.5 10^3/uL (0.0-1.0); MONOCYTES % (AUTO) 3 % (0-12); NEUTROPHILS # (AUTO) 15.6 10^3/uL (1.8-7.8); NEUTROPHILS % (AUTO) 87 % (42-75); PLATELET COUNT 154 10^3/uL (130-400); WHITE BLOOD COUNT 17.9 10^3/uL (4.3-11.0)
[2021-08-20 04:21] LABS: ALLENS TEST ART LINE; INSPIRED O2 40%; PATIENT TEMP 36.5; VENTILATOR YES
[2021-08-20 04:30] LABS: ALBUMIN 2.3 GM/DL (3.2-4.5); POTASSIUM 4.8 MMOL/L (3.6-5.0)
[2021-08-20 04:31] LABS: CALCIUM 7.3 MG/DL (8.5-10.1)
[2021-08-20 04:33] LABS: TOTAL PROTEIN 4.2 GM/DL (6.4-8.2)
[2021-08-20 04:35] LABS: BILIRUBIN,TOTAL 0.6 MG/DL (0.1-1.0)
[2021-08-20 04:36] LABS: PHOSPHORUS 2.7 MG/DL (2.3-4.7)
[2021-08-20 04:39] LABS: MAGNESIUM 2.8 MG/DL (1.6-2.4)
[2021-08-20] MEDS: POTASSIUM CL 10MEQ/50ML IVPB 50 ML IV SCH (05:27)
[2021-08-20] MEDS: ENOXAPARIN 100 MG/1 ML (LOVENOX) SYR SC SCH ×2 (05:27→17:00)
[2021-08-20] MEDS: KCL 20 MEQ TAB (K-DUR) PO SCH (05:28)
[2021-08-20] MEDS: inSUlin ASPART (NovoLOG) 1 UNIT/0.01 ML (CHARGE PER UNIT) SC SCH ×3 (05:28→17:40)
[2021-08-20] MEDS: MAGNESIUM 1 GM/100 ML IVPB 100 ML IV SCH (05:28)
[2021-08-20 06:42] VITALS: BP 134/64
--- NOTE | 2021-08-20 06:58 | Occ Therapy Progress Note ---
Therapy Progress Note Pt is currently intubated. OT will continue to monitor pt's status and will initiate treatment when pt is medically stable to participate in skilled therapy. MAGGIE WAYNE Aug 20, 2021 06:58
--- NOTE | 2021-08-20 07:39 | Physical Therapy Progress Note ---
Therapy Progress Note Pt is currently intubated. PT will continue to monitor pt's status and will initiate treatment when pt is medically stable to participate in skilled therapy. GILBERTO ARAGON PT Aug 20, 2021 07:39
--- NOTE | 2021-08-20 07:47 | Diagnostic Imaging Report ---
INDICATION: Respiratory failure Portable chest 4:12 AM There is an ET tube projecting over the trachea. NG tube projects over the stomach. Right upper extremity PICC line tip projects over the SVC. There are diffuse alveolar infiltrates in the lungs. There are no effusions or pneumothoraces. IMPRESSION: Diffuse pulmonary infiltrates in the lungs appear slightly worse compared to the previous day. Dictated by: Dictated on workstation # [id number]
[2021-08-20] MEDS: PANTOPRAZOLE 40 MG (PROTONIX) VIAL IV SCH ×2 (10:03→21:08)
[2021-08-20 10:17] VITALS: BP 108/53
[2021-08-20] MEDS: NS IV 1000 ML 1,000 ML IV SCH (11:43)
[2021-08-20 14:36] VITALS: BP 122/62
--- NOTE | 2021-08-20 14:55 | Pulmonary Progress Note ---
EZE REESE MED STUDENT 08/20/21 1455: Subjective Date Seen by a Provider: Aug 20, 2021 Time Seen by a Provider: 07:20 Subjective/Events-last exam Solo Pope is sedated and intubated on a ventilator for the past 1.5 days. Per night RN, has steadily decreased vent settings since intubation, currently TV 500 RR 20 Peep 8, FiO2 45%. BP has been labile, requiring frequent adjustments of NE drip per night RN. Patient has been afebrile overnight. Sepsis Event Evaluation Height, Weight, BMI Height: 0'70.00" Weight: 159lbs. oz. 72.611303qa; 36.50 BMI Method: Focused Exam Lactate Level 08/19/21 10:00: Lactic Acid Level 1.23 Time of Focused Exam: 07:30 Exam Exam Patient acknowledged, consented, and participated in this virtual visit which was conducted using real time audio/video Vital Signs Date Time Temp Pulse Resp B/P (MAP) Pulse Ox O2 Delivery O2 Flow Rate FiO2 08/20/21 14:36 61 28 90 65 08/20/21 12:00 36.7 69 28 88 Mechanical Ventilator 45.00 08/20/21 11:00 36.6 57 28 89 Mechanical Ventilator 45.00 08/20/21 10:17 63 28 88 60 08/20/21 10:00 36.7 67 28 95 Mechanical Ventilator 45.00 08/20/21 09:00 36.6 54 28 93 Mechanical Ventilator 45.00 08/20/21 08:00 36.5 50 28 93 Mechanical Ventilator 45.00 08/20/21 07:00 36.4 58 28 91 Mechanical Ventilator 45.00 08/20/21 07:00 60 08/20/21 06:42 53 28 93 45 08/20/21 06:00 36.4 49 28 95 Mechanical Ventilator 45.00 08/20/21 05:00 36.5 56 28 95 Mechanical Ventilator 45.00 08/20/21 04:00 36.5 54 28 94 Mechanical Ventilator 45.00 08/20/21 04:00 96 Mechanical Ventilator 45 08/20/21 03:41 54 28 127/58 08/20/21 03:00 36.6 54 28 94 Mechanical Ventilator 45.00 08/20/21 02:34 56 28 93 40 08/20/21 02:00 36.7 58 28 91 Mechanical Ventilator 45.00 08/20/21 02:00 Mechanical Ventilator 45.00 08/20/21 01:00 36.7 60 28 92 Mechanical Ventilator 40.00 08/20/21 01:00 59 08/20/21 00:00 36.8 63 28 93 Mechanical Ventilator 40.00 08/20/21 00:00 96 Mechanical Ventilator 45 08/19/21 23:00 36.9 61 28 93 Mechanical Ventilator 40.00 08/19/21 22:08 63 28 98 40 08/19/21 22:00 36.9 61 28 98 Mechanical Ventilator 40.00 08/19/21 21:00 37.0 62 28 98 Mechanical Ventilator 40.00 08/19/21 20:00 37.0 63 28 97 Mechanical Ventilator 40.00 08/19/21 20:00 96 Mechanical Ventilator 45 08/19/21 19:00 37.0 70 28 96 Mechanical Ventilator 40.00 08/19/21 19:00 70 08/19/21 18:57 70 28 95 45 08/19/21 18:00 82 28 122/65 93 Mechanical Ventilator 55.00 08/19/21 17:00 68 28 171/79 100 Mechanical Ventilator 55.00 08/19/21 16:12 96 Mechanical Ventilator 45.00 08/19/21 16:00 65 28 146/72 100 Mechanical Ventilator 55.00 08/19/21 15:00 65 28 199/86 100 Mechanical Ventilator 55.00 08/19/21 15:00 65 28 99 45 I & O 08/20/21 07:00 Intake Total 2910 ml Output Total 1425 ml Balance 1485 ml Height & Weight Height: 0'70.00" Weight: 159lbs. oz. 72.748551kg; 36.50 BMI Method: General Appearance: WD/WN, Chronically ill, Obese, Other (sedated, Intubated. ) HEENT: Moist Mucous Membranes, Other (pupils pinpoint and reactive to light.) Neck: Normal Inspection, Non Tender Respiratory: No Accessory Muscle Use; No Crackles; Decreased Breath Sounds (minimally); No Wheezing; Other (coarse breath sounds) Cardiovascular: Regular Rate, Rhythm, No Gallop, No Murmur, Normal Peripheral Pulses Capillary Refill: Less Than 3 Seconds Gastrointestinal: normal bowel sounds (hypoactive but present), non tender, soft, other (graves catheter in place, no cellulitis at genitalia) Extremity: Normal Capillary Refill, Normal Inspection, Normal Range of Motion, Non Tender, No Calf Tenderness, Pedal Edema, Other (upper and lower edema) Neurologic/Psychiatric: No Alert Skin: Normal Color, Warm/Dry Results Lab Laboratory Tests 08/19/21 04:15 08/19/21 14:51 08/20/21 04:12 Assessment/Plan Assessment/Plan Covid 19 pneumonia -on Zosyn ARDS respiratory acidosis intubated, TV 500, Peep 8, RR 20, FiO2 45% Sedation with midazolam, Precedex, Fentanyl. Propofol held due to triglyerides. continue decadron. On decadron since 08/15 leukocytosis, improved -WBC down today -afebrile overnight, afebrile currently GANESH, significantly improved -creatinine now 1 GI prophylaxis -Protonix DVT/PE prophylaxis -on Lovenox -boots and SCDs on Equipment: IV access left basilic vein Graves catheter in place intubated with ET tube and OG tube 08/18 NEIL JOHNSON MD 08/20/21 1630: Supervisory-Addendum Brief Verification & Attestation Participated in pt care: history, MDM, physical Personally performed: history, MDM, supervision of care Care discussed with: Medical Student Procedures: n/a PLAN as above A medical student performed and documented this service. I reviewed all information documented by the medical student and made modifications to such information, when appropriate. Medical student performed patients physical exam. Medical decision making was done during tele-rounds with this medical student and a bedside RN . Plans in collaboration with bedside consultants and IM MDs. Discussed with RN to reach out if any questions or concerns A total of 33 minutes of critical care time was devoted to this patient today, required to treat and/or prevent further deterioration of critical care condition ( as above) . EZE REESE MED STUDENT Aug 20, 2021 14:55 NEIL JOHNSON MD Aug 20, 2021 16:30
[2021-08-20] MEDS: NOREPINEPHRINE 8 MG/250 ML 250 ML IV SCH (17:01)
[2021-08-20 19:11] VITALS: BP 122/62
--- NOTE | 2021-08-20 21:32 | Progress Note ---
Subjective Subjective/Events-last exam Intubated and Sedated. No ON events Review of Systems Unable to complete due to distress Focused Exam Lactate Level 08/19/21 10:00: Lactic Acid Level 1.23 Time of Focused Exam: 07:30 Objective Exam Last Set of Vital Signs Vital Signs Date Time Temp Pulse Resp B/P (MAP) Pulse Ox O2 Delivery O2 Flow Rate FiO2 08/20/21 19:11 61 28 90 70 08/20/21 17:01 123/63 08/20/21 16:00 Mechanical Ventilator 45.00 08/20/21 12:00 36.7 Capillary Refill : Less Than 3 Seconds I&O Intake and Output 08/20/21 00:00 Intake Total 3160 ml Output Total 1145 ml Balance 2015 ml Intake Oral 60 ml IV Total 3100 ml Output Urine Total 1145 ml General: Mild Distress Lungs: Other (diminished breath sounds, diffuse crackle) Heart: Regular Rate, No Murmurs Abdomen: Normal Bowel Sounds, Soft Extremities: Other (1+ pitting edema) Results/Procedures Lab Laboratory Tests 08/19/21 23:19: Glucometer 133H 08/20/21 04:12: White Blood Count 17.9H, Red Blood Count 4.17L, Hemoglobin 12.7L, Hematocrit 38L , Mean Corpuscular Volume 91, Mean Corpuscular Hemoglobin 31, Mean Corpuscular Hemoglobin Concent 33, Red Cell Distribution Width 13.2, Platelet Count 154, Mean Platelet Volume 9.0, Immature Granulocyte % (Auto) 3, Neutrophils (%) (Auto) 87H, Lymphocytes (%) (Auto) 6L, Monocytes (%) (Auto) 3, Eosinophils (%) (Auto) 0, Basophils (%) (Auto) 0, Neutrophils # (Auto) 15.6H, Lymphocytes # (Auto) 1.2, Monocytes # (Auto) 0.5, Eosinophils # (Auto) 0.0, Basophils # (Auto) 0.0, Immature Granulocyte # (Auto) 0.6H, Blood Gas Puncture Site R ART, Blood Gas Patient Temperature 36.5, Arterial Blood pH 7.41, Arterial Blood Partial Pressure CO2 33L, Arterial Blood Partial Pressure O2 50L, Arterial Blood HCO3 21L, Arterial Blood Total CO2 21.9, Arterial Blood Oxygen Saturation 83L, Arterial Blood Base Excess -3.1L, Roberth Test ART LINE, Blood Gas Ventilator Setting YES, Blood Gas Inspired Oxygen 40%, Sodium Level 143, Potassium Level 4.8, Chloride Level 117H, Carbon Dioxide Level 19L, Anion Gap 7, Blood Urea Nitrogen 43H, Creatinine 1.00, Estimat Glomerular Filtration Rate 76, BUN /Creatinine Ratio 43, Glucose Level 151H, Calcium Level 7.3L, Corrected Calcium 8.7, Phosphorus Level 2.7, Magnesium Level 2.8H, Total Bilirubin 0.6, Aspartate Amino Transf (AST/SGOT) 31, Alanine Aminotransferase (ALT/SGPT) 39, Alkaline Phosphatase 113, Total Protein 4.2L, Albumin 2.3L, Triglycerides Level 423#H 08/20/21 12:01: Glucometer 140H 08/20/21 16:40: Glucometer 127H Microbiology 08/19/21 Blood Culture - Preliminary, Resulted No growth 08/19/21 Gram Stain - Final, Resulted 08/19/21 Sputum Culture - Preliminary, Resulted No growth Assessment/Plan Assessment/Plan (1) Acute respiratory failure with hypoxia Status: Acute Assessment & Plan: 08/17: Bipap dependent, high risk of intubation, High dose steroids, S/p Actrema 08/16, MAT protocol, Tele ICU helping with ICU management 08/18: High risk for intubation, high RR 08/19: Intubated yesterday afternoon, eICU managing 08/20: Titrate PEEP/oxygen as tolerated (2) ARDS (adult respiratory distress syndrome) Status: Acute (3) Pulmonary embolism Status: Acute Assessment & Plan: 08/19: lovenox decreased 90 BID due to bleeding Qualifiers: (4) Hypercoagulable state associated with COVID-19 Status: Acute Assessment & Plan: - ELAINE Dimas MD Aug 20, 2021 21:32
[2021-08-20 22:44] VITALS: BP 162/66
[2021-08-21] MEDS: MIDAZOLAM DRIP PRE-MIX 100 ML IV SCH ×2 (00:21→16:16)
[2021-08-21] MEDS: NOREPINEPHRINE 8 MG/250 ML 250 ML IV SCH ×2 (00:21→14:19)
[2021-08-21] MEDS: NS IV 1000 ML 1,000 ML IV SCH ×4 (00:21→23:42)
[2021-08-21] MEDS: inSUlin ASPART (NovoLOG) 1 UNIT/0.01 ML (CHARGE PER UNIT) SC SCH ×4 (00:35→18:35)
[2021-08-21 00:37] LABS: ABG OXYGEN SATURATION 89 % (94-100); ABG PCO2 38 MMHG (35-45); ABG PH 7.39 (7.37-7.43); ABG PO2 63 MMHG (79-93); ABG TCO2 23.3 MMOL/L (21.0-31.0)
[2021-08-21 00:41] LABS: ALLENS TEST YES-POS; INSPIRED O2 45%; PATIENT TEMP 37.1; VENTILATOR NO
[2021-08-21] MEDS: fentaNYL DRIP PRE-MIX 250 ML IV SCH ×5 (01:37→23:44)
[2021-08-21 02:40] VITALS: BP 144/73
[2021-08-21 05:03] LABS: BASOPHILS % (AUTO) 0 % (0-10); EOSINOPHILS % (AUTO) 0 % (0-10); HEMATOCRIT 36 % (40-54); LYMPHOCYTES # (AUTO) 0.9 10^3/uL (1.0-4.0); LYMPHOCYTES % (AUTO) 5 % (12-44); MEAN CORPUSCULAR HEMOGLOBIN 31 pg (25-34); MEAN CORPUSCULAR HGB CONC 33 g/dL (32-36); MEAN CORPUSCULAR VOLUME 93 fL (80-99); MEAN PLATELET VOLUME 9.3 fL (9.0-12.2); MONOCYTES # (AUTO) 0.7 10^3/uL (0.0-1.0); MONOCYTES % (AUTO) 4 % (0-12); NEUTROPHILS # (AUTO) 16.2 10^3/uL (1.8-7.8); NEUTROPHILS % (AUTO) 86 % (42-75); PLATELET COUNT 175 10^3/uL (130-400); WHITE BLOOD COUNT 18.9 10^3/uL (4.3-11.0)
[2021-08-21 05:20] LABS: ABG BASE EXCESS -1.1 MMOL/L (-2.5-2.5); ABG OXYGEN SATURATION 88 % (94-100); ABG PCO2 38 MMHG (35-45); ABG PO2 60 MMHG (79-93); ABG TCO2 24.3 MMOL/L (21.0-31.0)
[2021-08-21 05:21] LABS: ALLENS TEST YES-POS; INSPIRED O2 NOT INDICATED; PATIENT TEMP 36.9; VENTILATOR NO
[2021-08-21 05:32] LABS: ALBUMIN 2.3 GM/DL (3.2-4.5)
[2021-08-21 05:33] LABS: POTASSIUM 4.3 MMOL/L (3.6-5.0)
[2021-08-21 05:34] LABS: CALCIUM 7.1 MG/DL (8.5-10.1)
[2021-08-21 05:37] LABS: BILIRUBIN,TOTAL 0.6 MG/DL (0.1-1.0)
[2021-08-21 05:38] LABS: PHOSPHORUS 2.5 MG/DL (2.3-4.7)
[2021-08-21 05:39] LABS: CREATININE SERUM 0.82 MG/DL (0.60-1.30)
[2021-08-21 05:41] LABS: MAGNESIUM 2.7 MG/DL (1.6-2.4)
[2021-08-21] MEDS: MAGNESIUM 1 GM/100 ML IVPB 100 ML IV SCH (06:15)
[2021-08-21] MEDS: POTASSIUM CL 10MEQ/50ML IVPB 50 ML IV SCH (06:15)
[2021-08-21] MEDS: ENOXAPARIN 100 MG/1 ML (LOVENOX) SYR SC SCH ×2 (06:15→17:02)
[2021-08-21] MEDS: KCL 20 MEQ TAB (K-DUR) PO SCH (06:15)
[2021-08-21 06:48] VITALS: BP 129/69
[2021-08-21] MEDS: RT-ALBUTEROL HFA 8.5 GM INHALER IH SCH ×5 (06:48→22:58)
--- NOTE | 2021-08-21 06:53 | Occ Therapy Progress Note ---
Therapy Progress Note Pt is currently intubated. OT will continue to monitor pt's status and will initiate treatment when pt is medically stable to participate in skilled therapy. MAGGIE WAYNE Aug 21, 2021 06:53
--- NOTE | 2021-08-21 07:25 | Diagnostic Imaging Report ---
Indication: Intubated Comparison: 08/20/2021 Findings: Single view of the chest demonstrates stable support devices. Bilateral pulmonary infiltrates are unchanged. The heart is prominent. There is no pneumothorax or large effusion. Impression: 1. Stable support devices. 2. Unchanged bilateral pulmonary infiltrates. Dictated by: Dictated on workstation # [id number]
--- NOTE | 2021-08-21 07:29 | Physical Therapy Progress Note ---
Therapy Progress Note Pt is currently intubated. PT will continue to monitor pt's status and will initiate treatment when pt is medically stable to participate in skilled therapy. GILBERTO ARAGON PT Aug 21, 2021 07:29
[2021-08-21] MEDS: PANTOPRAZOLE 40 MG (PROTONIX) VIAL IV SCH ×2 (10:11→22:13)
[2021-08-21 10:37] VITALS: BP 125/60
--- NOTE | 2021-08-21 10:56 | Progress Note - Hospitalist ---
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 He is unvaccinated. Patient was found to have severe hyponatremia of 123 and elevated white count of 14,000. Patient was seen by eICU and I appreciate their management. Patient appears to have high risk for ventilation. Subjective/Events-last exam Patient remains intubated Left knee edematous and red so spoke with Dr. Foss and he performed arthrocentesis High risk for septic joint so will place on vancomycin and cefepime Remains intubated PEEP was 20 now it is 8 today Sedation holiday he is moving his extremities Focused Exam Lactate Level 08/19/21 10:00: Lactic Acid Level 1.23 08/21/21 14:15: Lactic Acid Level 2.79*H 08/21/21 19:05: Lactic Acid Level 1.61 Time of Focused Exam: 07:30 Objective Exam Vital Signs Vital Signs Date Time Temp Pulse Resp B/P (MAP) Pulse Ox O2 Delivery O2 Flow Rate FiO2 08/22/21 05:00 145 28 67 08/22/21 04:26 35.6 08/22/21 04:10 148/65 08/22/21 04:00 Mechanical Ventilator 85.00 08/22/21 04:00 85 Capillary Refill : Less Than 3 Seconds General Appearance: No Apparent Distress, Chronically ill, Other (Sedated and intubated) Respiratory: No Accessory Muscle Use, No Respiratory Distress, Decreased Breath Sounds Cardiovascular: Regular Rate, Rhythm Extremity: Other (Left knee edematous and red) Results/Procedures Lab Laboratory Tests 08/22/21 03:10 Patient resulted labs reviewed. Assessment/Plan Assessment and Plan Assess & Plan/Chief Complaint Assessment: Acute hypoxic respiratory failure COVID-19 pneumonia high risk for intubation and within 2 weeks History of obstructive sleep apnea no longer used CPAP only mouth device Hyponatremia now resolved Leukocytosis Plan depletion causing elevated lactic acid now resolved Pulmonary embolism on therapeutic dose of Lovenox Left knee effusion status post arthrocentesis on 08/21/[address] Foss Plan: ICU Monitor closely High risk for intubation and 08/16/2021: Continue supportive care Heparin drip High risk for intubation Maintain on Vapotherm 08/21/2021: Await culture from arthrocentesis Empiric antibiotic in case it to septic joint Critical Care Ventilator Management Diagnosis/Problems Diagnosis/Problems (1) COVID Status: Acute (2) Acute respiratory failure with hypoxia Status: Acute IDALIA CARLSON DO Aug 21, 2021 10:56
--- NOTE | 2021-08-21 11:31 | Tele-ICU Progress Note ---
Subjective Date Seen by a Provider: Aug 21, 2021 Time Seen by a Provider: 11:26 Subjective/Events-last exam Patient with Covid pneumonia with acute respiratory failure requiring mechanical ventilation. He has a morbid obesity. He has been off sedation and off Levophed since last night. BP is stable. He has a small pulmonary embolus on CT angiogram of the chest. For which he is being treated with full dose Lovenox. His vent settings have been weaned to PEEP of 8 and FiO2 of 60% and he is saturating around 95 to 98%. Video visit made. Discussed with the glass polisher of Systems ROS PER ATTENDING PHYSICIAN Sepsis Event Evaluation Height, Weight, BMI Height: 0'70.00" Weight: 159lbs. oz. 72.257666tg; 36.50 BMI Method: Focused Exam Lactate Level 08/19/21 10:00: Lactic Acid Level 1.23 Time of Focused Exam: 07:30 Exam Exam Patient acknowledged, consented, and participated in this virtual visit which was conducted using real time audio/video Vital Signs Date Time Temp Pulse Resp B/P (MAP) Pulse Ox O2 Delivery O2 Flow Rate FiO2 08/21/21 10:48 Mechanical Ventilator 60.00 08/21/21 10:37 50 28 100 70 08/21/21 10:00 37.0 92 14 99 Mechanical Ventilator 70.00 08/21/21 09:00 37 41 28 97 Mechanical Ventilator 70.00 08/21/21 08:00 37 43 29 97 Mechanical Ventilator 70.00 08/21/21 07:00 44 08/21/21 07:00 36.9 49 28 93 Mechanical Ventilator 70.00 08/21/21 06:48 65 28 92 70 08/21/21 06:00 36.9 54 28 94 Mechanical Ventilator 70.00 08/21/21 05:00 36.9 71 28 98 Mechanical Ventilator 70.00 08/21/21 05:00 113 28 87 08/21/21 04:00 96 Mechanical Ventilator 70 08/21/21 04:00 37.0 48 28 94 Mechanical Ventilator 70.00 08/21/21 03:00 37.0 49 28 94 Mechanical Ventilator 70.00 08/21/21 02:40 86 28 90 70 08/21/21 02:00 36.9 56 29 97 Mechanical Ventilator 70.00 08/21/21 01:00 37.1 54 28 96 Mechanical Ventilator 70.00 08/21/21 01:00 54 08/21/21 00:21 72 28 105/53 08/21/21 00:00 96 Mechanical Ventilator 70 08/21/21 00:00 37.1 42 29 97 Mechanical Ventilator 70.00 08/20/21 22:44 42 28 97 70 08/20/21 22:00 37.1 51 22 96 Mechanical Ventilator 70.00 08/20/21 21:00 37.1 50 28 93 Mechanical Ventilator 45.00 08/20/21 20:00 96 Mechanical Ventilator 70 08/20/21 20:00 37.1 60 28 92 Mechanical Ventilator 45.00 08/20/21 19:11 61 28 90 70 08/20/21 19:00 37.1 56 28 90 Mechanical Ventilator 45.00 08/20/21 19:00 56 08/20/21 18:00 37.1 50 28 92 Mechanical Ventilator 45.00 08/20/21 17:01 67 123/63 08/20/21 17:00 37.1 71 28 90 Mechanical Ventilator 45.00 08/20/21 16:00 57 28 91 Mechanical Ventilator 45.00 08/20/21 16:00 96 Mechanical Ventilator 65 08/20/21 15:00 61 28 91 Mechanical Ventilator 45.00 08/20/21 14:36 61 28 90 65 08/20/21 14:00 65 28 89 Mechanical Ventilator 45.00 08/20/21 13:00 66 28 88 Mechanical Ventilator 45.00 08/20/21 13:00 101 08/20/21 12:00 96 Mechanical Ventilator 65 08/20/21 12:00 36.7 69 28 88 Mechanical Ventilator 45.00 I & O 08/21/21 07:00 Intake Total 1920 ml Output Total 1225 ml Balance 695 ml Height & Weight Height: 0'70.00" Weight: 159lbs. oz. 72.476408de; 36.50 BMI Method: General Appearance: WD/WN, Chronically ill, Obese, Other (sedated, Intubated. ) HEENT: Moist Mucous Membranes, Other (pupils pinpoint and reactive to light.) Neck: Normal Inspection, Non Tender Respiratory: No Accessory Muscle Use; No Crackles; Decreased Breath Sounds (minimally); No Wheezing; Other (coarse breath sounds) Cardiovascular: Regular Rate, Rhythm, No Gallop, No Murmur, Normal Peripheral Pulses Capillary Refill: Less Than 3 Seconds Gastrointestinal: normal bowel sounds (hypoactive but present), non tender, soft, other (graves catheter in place, no cellulitis at genitalia) Extremity: Normal Capillary Refill, Normal Inspection, Normal Range of Motion, Non Tender, No Calf Tenderness, Pedal Edema, Other (upper and lower edema) Neurologic/Psychiatric: No Alert Skin: Normal Color, Warm/Dry Other comments PE PER ATTENDING PHYSICIAN Results Lab Laboratory Tests 08/19/21 14:51 08/20/21 04:12 08/21/21 04:55 Meds REVIEWED Radiology CXR REVIEWED Assessment/Plan Assessment/Plan 1. Acute hypoxic respiratory failure due to pneumonia and ARDS requiring mechanical ventilation. 2. Covid pneumonia. 3. Possible superimposed bacterial pneumonia. 4. Morbid obesity. Recommendations 1. Continue to wean FiO2 as tolerated and to hold off sedation as far as possible. 2. Continue IV antibiotics. 3. Continue IV Decadron. 4. DVT prophylaxis and ulcer prophylaxis. 5. We will consider SBT tomorrow if continues to progress. I have made a video visit and discussed with the stitcher standard machine: Critically Ill Patient Time spent with patient (mins): 35 Copy Copies To 1: IDALIA CARLSON HARI P MD Aug 21, 2021 11:31
[2021-08-21] MEDS ORDERED: ONDANSETRON 4 MG/2 ML (SDV) Z0FRAN ONE (11:50)
[2021-08-21] MEDS: LORazepam INJ 2 MG/ML (ATIVAN) VIAL IVP PRN (12:11)
[2021-08-21] MEDS ORDERED: VANCOMYCIN INJECTION 2,250 MG in NS IV 500 ML 500 ML IV NR (13:30)
--- NOTE | 2021-08-21 13:51 | Procedure/Intervention Note ---
Procedure Note Preoperative Date of Service: Aug 21, 2021 Time of Procedure: 13:30 Vital Signs Date Time Temp Pulse Resp B/P (MAP) Pulse Ox O2 Delivery O2 Flow Rate FiO2 08/21/21 13:00 86 08/21/21 13:00 36.9 28 91 Mechanical Ventilator 60.00 08/21/21 10:37 70 Indication Left Knee Effusion Prep/Sedation Prepartation: Chlorhexidine Procedure-General The lateral portion of the left knee was cleaned with chlorhexidine. An 18 gauge needle was inserted into the suprapatellar pouch and 27 mL of straw- colored fluid was removed. Site was dressed with a band-aid. Specimen will be sent for gram stain, culture, crystals, and cell count. Complications None JOHNIE LARIOS MD Aug 21, 2021 13:51
[2021-08-21] MEDS ORDERED: CEFEPIME INJECTION 2,000 MG in WATER (STERILE) FOR INJECTION 20 ML IV SCH (14:00)
[2021-08-21] MEDS: CEFEPIME 1,000 MG/SWFI 10 ML IV PUSH IV SCH ×6 (14:25→23:43)
[2021-08-21 14:45] LABS: GLUCOSE,BODY FLUID 134 MG/DL; LDH,BODY FLUID 88 U/L; TOTAL PROTEIN,BODY FLUID < 0.8 G/DL
[2021-08-21 14:50] VITALS: BP 107/54
[2021-08-21 14:50] LABS: BODY FLUID APPEARENCE SLT CLDY; BODY FLUID COLOR YELLOW; BODY FLUID RBC COUNT 1650 /uL; BODY FLUID SOURCE SYNOVIAL; BODY FLUID WBC TOTAL COUNT 2 /uL
--- NOTE | 2021-08-21 15:42 | Diagnostic Imaging Report ---
INDICATION: Wound to the left anterior knee with warmth and redness. TIME OF EXAM: 2:48 PM. EXAMINATION: Three views of the left knee were obtained. Alignment is normal. Joint spaces are well maintained. Articular surfaces are smooth. No fracture, dislocation or effusion is identified. No soft tissue gas is identified. No bony destructive changes are identified to suggest osteomyelitis. IMPRESSION: No acute feature is detected. Dictated by: Dictated on workstation # [id number]
[2021-08-21 19:10] VITALS: BP 121/54
[2021-08-21 22:59] VITALS: BP 190/105
[2021-08-21] MEDS: VANCOMYCIN INJECTION 1,500 MG in NS IV 500 ML 500 ML IV SCH (23:43)
[2021-08-22] MEDS: inSUlin ASPART (NovoLOG) 1 UNIT/0.01 ML (CHARGE PER UNIT) SC SCH ×5 (00:14→23:56)
[2021-08-22 02:47] VITALS: BP 148/65
[2021-08-22] MEDS: RT-ALBUTEROL HFA 8.5 GM INHALER IH SCH ×6 (02:47→23:02)
[2021-08-22 03:27] LABS: ABG BASE EXCESS -2.2 MMOL/L (-2.5-2.5); ABG OXYGEN SATURATION 95 % (94-100); ABG PCO2 36 MMHG (35-45); ABG PO2 73 MMHG (79-93); ABG TCO2 23.4 MMOL/L (21.0-31.0)
[2021-08-22 03:31] LABS: ALLENS TEST ART LINE; BASOPHILS # (AUTO) 0.1 10^3/uL (0.0-0.1); BASOPHILS % (AUTO) 0 % (0-10); EOSINOPHILS % (AUTO) 0 % (0-10); HEMATOCRIT 36 % (40-54); HEMOGLOBIN 11.8 g/dL (13.3-17.7); INSPIRED O2 85%; LYMPHOCYTES # (AUTO) 0.7 10^3/uL (1.0-4.0); LYMPHOCYTES % (AUTO) 3 % (12-44); MEAN CORPUSCULAR HEMOGLOBIN 31 pg (25-34); MEAN CORPUSCULAR HGB CONC 33 g/dL (32-36); MEAN CORPUSCULAR VOLUME 94 fL (80-99); MEAN PLATELET VOLUME 9.8 fL (9.0-12.2); MONOCYTES # (AUTO) 0.6 10^3/uL (0.0-1.0); MONOCYTES % (AUTO) 3 % (0-12); NEUTROPHILS # (AUTO) 20.3 10^3/uL (1.8-7.8); NEUTROPHILS % (AUTO) 90 % (42-75); PATIENT TEMP 35.6; PLATELET COUNT 204 10^3/uL (130-400); VENTILATOR YES; WHITE BLOOD COUNT 22.7 10^3/uL (4.3-11.0)
[2021-08-22 03:36] LABS: ALBUMIN 2.3 GM/DL (3.2-4.5); POTASSIUM 4.7 MMOL/L (3.6-5.0)
[2021-08-22 03:40] LABS: BILIRUBIN,TOTAL 0.6 MG/DL (0.1-1.0)
[2021-08-22 03:42] LABS: CREATININE SERUM 0.77 MG/DL (0.60-1.30); PHOSPHORUS 2.9 MG/DL (2.3-4.7)
[2021-08-22 03:45] LABS: MAGNESIUM 2.7 MG/DL (1.6-2.4)
[2021-08-22] MEDS: NOREPINEPHRINE 8 MG/250 ML 250 ML IV SCH ×2 (04:01→18:11)
[2021-08-22] MEDS: fentaNYL DRIP PRE-MIX 250 ML IV SCH ×7 (04:10→21:26)
[2021-08-22] MEDS: MIDAZOLAM DRIP PRE-MIX 100 ML IV SCH ×3 (04:10→23:56)
[2021-08-22] MEDS: CEFEPIME 1,000 MG/SWFI 10 ML IV PUSH IV SCH ×8 (05:18→23:56)
[2021-08-22] MEDS: ENOXAPARIN 100 MG/1 ML (LOVENOX) SYR SC SCH ×2 (05:18→16:10)
[2021-08-22] MEDS: POTASSIUM CL 10MEQ/50ML IVPB 50 ML IV SCH (06:27)
[2021-08-22] MEDS: KCL 20 MEQ TAB (K-DUR) PO SCH (06:27)
[2021-08-22] MEDS: MAGNESIUM 1 GM/100 ML IVPB 100 ML IV SCH (06:27)
[2021-08-22 07:15] VITALS: BP 170/71
--- NOTE | 2021-08-22 07:23 | Physical Therapy Progress Note ---
Therapy Progress Note Pt is currently intubated. PT will continue to monitor pt's status and will initiate treatment when pt is medically stable to participate in skilled therapy. GILBERTO ARAGON PT Aug 22, 2021 07:23
[2021-08-22] MEDS ORDERED: FUROSEMIDE 40 MG/4 ML INJ (LASIX) IVP ONE (08:00)
--- NOTE | 2021-08-22 08:00 | Tele-ICU Progress Note ---
Subjective Date Seen by a Provider: Aug 22, 2021 Time Seen by a Provider: 07:55 Subjective/Events-last exam Patient did not have any further seizures. Awaiting CT of the head. He is currently on FiO2 of 75% with PEEP of 8 and respiratory rate of 28. His blood pressure is being supported by Levophed with which she is very sensitive. Currently sedated with fentanyl 350 mcg/h and Versed 8 mg/h. Based on synovial fluid exam left knee looks aseptic but will wait for another 24 hrs to see his cultures and deescalate anti biotic treatment. Review of Systems ROS PER ATTENDING PHYSICIAN Sepsis Event Evaluation Height, Weight, BMI Height: 0'70.00" Weight: 159lbs. oz. 72.398036oq; 36.50 BMI Method: Focused Exam Lactate Level 08/19/21 10:00: Lactic Acid Level 1.23 08/21/21 14:15: Lactic Acid Level 2.79*H 08/21/21 19:05: Lactic Acid Level 1.61 Time of Focused Exam: 07:30 Exam Exam Patient acknowledged, consented, and participated in this virtual visit which was conducted using real time audio/video Vital Signs Date Time Temp Pulse Resp B/P (MAP) Pulse Ox O2 Delivery O2 Flow Rate FiO2 08/22/21 07:15 41 28 97 85 08/22/21 06:00 36.7 42 28 97 Mechanical Ventilator 85.00 08/22/21 05:00 145 28 67 08/22/21 05:00 36.7 40 28 98 Mechanical Ventilator 85.00 08/22/21 04:26 35.6 08/22/21 04:10 43 28 148/65 08/22/21 04:00 36.8 61 28 98 Mechanical Ventilator 85.00 08/22/21 04:00 96 Mechanical Ventilator 85 08/22/21 03:00 36.7 40 28 98 Mechanical Ventilator 85.00 08/22/21 02:47 43 28 94 85 08/22/21 02:00 36.7 46 28 95 Mechanical Ventilator 85.00 08/22/21 01:00 36.7 47 28 92 Mechanical Ventilator 85.00 08/22/21 01:00 50 08/22/21 00:00 36.7 51 28 93 Mechanical Ventilator 85.00 08/21/21 23:59 96 Mechanical Ventilator 85 08/21/21 23:00 36.7 65 28 93 Mechanical Ventilator 85.00 08/21/21 23:00 Mechanical Ventilator 85.00 08/21/21 22:59 65 28 86 70 08/21/21 22:19 Mechanical Ventilator 75.00 08/21/21 22:00 36.7 57 28 94 Mechanical Ventilator 65.00 08/21/21 21:00 36.7 53 28 90 Mechanical Ventilator 65.00 08/21/21 20:08 35.7 08/21/21 20:08 Mechanical Ventilator 65.00 08/21/21 20:00 36.8 54 28 91 Mechanical Ventilator 60.00 08/21/21 20:00 96 Mechanical Ventilator 65 08/21/21 19:10 79 28 94 65 08/21/21 19:00 53 08/21/21 19:00 37.0 55 28 90 Mechanical Ventilator 60.00 08/21/21 17:00 37 70 28 91 Mechanical Ventilator 60.00 08/21/21 16:16 80 28 107/55 08/21/21 16:00 37 68 28 91 Mechanical Ventilator 60.00 08/21/21 16:00 96 Mechanical Ventilator 70 08/21/21 15:32 36.2 08/21/21 15:00 37 80 28 92 Mechanical Ventilator 60.00 08/21/21 14:50 75 28 94 65 08/21/21 14:00 36.9 79 28 89 Mechanical Ventilator 60.00 08/21/21 13:00 86 08/21/21 13:00 36.9 83 28 91 Mechanical Ventilator 60.00 08/21/21 12:00 37.2 100 20 95 Mechanical Ventilator 60.00 08/21/21 12:00 96 Mechanical Ventilator 70 08/21/21 11:39 37.0 89 28 97 Mechanical Ventilator 60.00 08/21/21 10:48 Mechanical Ventilator 60.00 08/21/21 10:37 50 28 100 70 08/21/21 10:00 37.0 92 14 99 Mechanical Ventilator 70.00 08/21/21 09:00 37 41 28 97 Mechanical Ventilator 70.00 08/21/21 08:00 96 Mechanical Ventilator 70 08/21/21 08:00 37 43 29 97 Mechanical Ventilator 70.00 I & O 08/22/21 07:00 Intake Total 2301.5 ml Output Total 1325 ml Balance 976.5 ml Height & Weight Height: 0'70.00" Weight: 159lbs. oz. 72.231526gh; 36.50 BMI Method: General Appearance: No Apparent Distress, Chronically ill, Other (Sedated and intubated) HEENT: Moist Mucous Membranes, Other (pupils pinpoint and reactive to light.) Neck: Normal Inspection, Non Tender Respiratory: No Accessory Muscle Use, No Respiratory Distress, Decreased Breath Sounds Cardiovascular: Regular Rate, Rhythm Capillary Refill: Less Than 3 Seconds Gastrointestinal: normal bowel sounds (hypoactive but present), non tender, soft, other (graves catheter in place, no cellulitis at genitalia) Extremity: Other (Left knee edematous and red) Neurologic/Psychiatric: No Alert Skin: Normal Color, Warm/Dry Other comments PER ATTENDING Results Lab Laboratory Tests 08/21/21 04:55 08/22/21 03:10 Assessment/Plan Assessment/Plan 1. Acute hypoxic respiratory failure due to pneumonia and ARDS requiring mechanical ventilation. 2. Covid pneumonia. 3. Possible superimposed bacterial pneumonia. 4. Morbid obesity 5. Possible septic L. knee arthritis. less likely now with synovial fluid is bland 6. Seizure disorder Recommendations 1. Continue to wean FiO2 as tolerated . 2. Continue IV antibioticsfor now and if c/s negative in the next 24hrs will deescalate with antibiotics. 3. Continue IV Decadron. 4. DVT prophylaxis and ulcer prophylaxis. 5. Its unlikely we can try on sbt's today given fio2 85%. 6. Continue Vanco and maxipime one more day until c/s negative. 7. IV keppra for seizures. 8. CT head today. 9.d/w RN and video visit made Critical Care: Critically Ill Patient Time spent with patient (mins): 35 OLU DURAN MD Aug 22, 2021 08:00
[2021-08-22] MEDS: PANTOPRAZOLE 40 MG (PROTONIX) VIAL IV SCH ×2 (08:05→21:26)
--- NOTE | 2021-08-22 08:06 | Progress Note - Hospitalist ---
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 He is unvaccinated. Patient was found to have severe hyponatremia of 123 and elevated white count of 14,000. Patient was seen by eICU and I appreciate their management. Patient appears to have high risk for ventilation. Subjective/Events-last exam Patient still intubated Left knee not as red Fluid shows no growth to date Still on cefepime and bank for possible septic joint White count 22,000 Had another seizure of which he has had 2 seizures at home but did not seek medical attention and one seizure here 2 days ago Keppra maintained CT brain showed no acute changes Focused Exam Lactate Level 08/21/21 14:15: Lactic Acid Level 2.79*H 08/21/21 19:05: Lactic Acid Level 1.61 Time of Focused Exam: 07:30 Objective Exam Vital Signs Vital Signs Date Time Temp Pulse Resp B/P (MAP) Pulse Ox O2 Delivery O2 Flow Rate FiO2 08/23/21 05:00 36.9 39 28 97 Mechanical Ventilator 80.00 08/23/21 04:00 80 Capillary Refill : Less Than 3 Seconds General Appearance: Chronically ill, Obese, Other (Sedated and intubated) Respiratory: Lungs Clear, Normal Breath Sounds Cardiovascular: Regular Rate, Rhythm Results/Procedures Lab Laboratory Tests 08/23/21 03:55 Patient resulted labs reviewed. Assessment/Plan Assessment and Plan Assess & Plan/Chief Complaint Assessment: Acute hypoxic respiratory failure COVID-19 pneumonia high risk for intubation and within 2 weeks History of obstructive sleep apnea no longer used CPAP only mouth device Hyponatremia now resolved Leukocytosis Plan depletion causing elevated lactic acid now resolved Pulmonary embolism on therapeutic dose of Lovenox Left knee effusion status post arthrocentesis on 08/21/[address] Foss Plan: ICU Monitor closely High risk for intubation and 08/16/2021: Continue supportive care Heparin drip High risk for intubation Maintain on Vapotherm 08/21/2021: Await culture from arthrocentesis Empiric antibiotic in case it to septic joint 08/22/2021: Await joint fluid culture IV antibiotics empirically Critical Care Critically Ill Patient Diagnosis/Problems Diagnosis/Problems (1) COVID Status: Acute (2) Acute respiratory failure with hypoxia Status: Acute IDALIA CARLSON DO Aug 22, 2021 08:06
[2021-08-22] MEDS: LORazepam INJ 2 MG/ML (ATIVAN) VIAL IVP PRN (10:15)
[2021-08-22 10:50] VITALS: BP 124/57
--- NOTE | 2021-08-22 10:55 | Diagnostic Imaging Report ---
PROCEDURE: CT head without contrast. TECHNIQUE: Multiple contiguous axial images were obtained through the brain without the use of intravenous contrast. Auto Exposure Controls were utilized during the CT exam to meet ALARA standards for radiation dose reduction. Indication: Followup seizures with altered mental status, COVID pneumonia. Comparison: None. Discussion: No acute intracranial hemorrhage, mass, midline shift, hydrocephalus. Cavum septum pellucidum incidentally noted. The ventricles and sulci are normal size and configuration for age. Bilateral mastoid air cell effusions are noted. Patient is intubated. The orbits and sinuses are unremarkable. The calvarium is intact. Impression: 1. No acute intracranial abnormality identified. 2. Bilateral mastoid air cell effusions. Dictated by: Dictated on workstation # [id number]
[2021-08-22] MEDS: VANCOMYCIN INJECTION 1,500 MG in NS IV 500 ML 500 ML IV SCH ×2 (13:32→23:56)
[2021-08-22] MEDS: NS IV 1000 ML 1,000 ML IV SCH (13:38)
[2021-08-22 14:10] VITALS: BP 114/47
[2021-08-22 19:20] VITALS: BP 104/46
[2021-08-22 23:00] VITALS: BP 147/59
[2021-08-23 02:28] VITALS: BP 153/60
[2021-08-23] MEDS: RT-ALBUTEROL HFA 8.5 GM INHALER IH SCH ×6 (02:28→23:17)
[2021-08-23] MEDS: fentaNYL DRIP PRE-MIX 250 ML IV SCH ×4 (03:48→19:54)
[2021-08-23 04:05] LABS: ABG BASE EXCESS -0.8 MMOL/L (-2.5-2.5); ABG OXYGEN SATURATION 82 % (94-100); ABG PCO2 39 MMHG (35-45); ABG PO2 53 MMHG (79-93); ABG TCO2 24.5 MMOL/L (21.0-31.0); BASOPHILS % (AUTO) 0 % (0-10); EOSINOPHILS % (AUTO) 0 % (0-10); HEMATOCRIT 34 % (40-54); HEMOGLOBIN 11.1 g/dL (13.3-17.7); LYMPHOCYTES # (AUTO) 0.7 10^3/uL (1.0-4.0); LYMPHOCYTES % (AUTO) 5 % (12-44); MEAN CORPUSCULAR HEMOGLOBIN 31 pg (25-34); MEAN CORPUSCULAR HGB CONC 33 g/dL (32-36); MEAN CORPUSCULAR VOLUME 95 fL (80-99); MEAN PLATELET VOLUME 9.7 fL (9.0-12.2); MONOCYTES # (AUTO) 0.4 10^3/uL (0.0-1.0); MONOCYTES % (AUTO) 3 % (0-12); NEUTROPHILS # (AUTO) 12.9 10^3/uL (1.8-7.8); NEUTROPHILS % (AUTO) 88 % (42-75); PLATELET COUNT 176 10^3/uL (130-400); WHITE BLOOD COUNT 14.7 10^3/uL (4.3-11.0)
[2021-08-23 04:06] LABS: ALLENS TEST ART LINE
[2021-08-23 04:07] LABS: INSPIRED O2 80%; VENTILATOR YES
[2021-08-23 04:18] LABS: ALBUMIN 2.2 GM/DL (3.2-4.5)
[2021-08-23 04:19] LABS: POTASSIUM 4.5 MMOL/L (3.6-5.0)
[2021-08-23 04:21] LABS: TOTAL PROTEIN 3.7 GM/DL (6.4-8.2)
[2021-08-23 04:23] LABS: BILIRUBIN,TOTAL 0.6 MG/DL (0.1-1.0)
[2021-08-23 04:24] LABS: PHOSPHORUS 2.9 MG/DL (2.3-4.7)
[2021-08-23 04:25] LABS: CREATININE SERUM 0.76 MG/DL (0.60-1.30)
[2021-08-23 04:28] LABS: MAGNESIUM 2.6 MG/DL (1.6-2.4)
[2021-08-23] MEDS: POTASSIUM CL 10MEQ/50ML IVPB 50 ML IV SCH (05:29)
[2021-08-23] MEDS: inSUlin ASPART (NovoLOG) 1 UNIT/0.01 ML (CHARGE PER UNIT) SC SCH ×4 (05:30→23:36)
[2021-08-23] MEDS: KCL 20 MEQ TAB (K-DUR) PO SCH (05:30)
[2021-08-23] MEDS: MAGNESIUM 1 GM/100 ML IVPB 100 ML IV SCH (05:30)
[2021-08-23] MEDS: ENOXAPARIN 100 MG/1 ML (LOVENOX) SYR SC SCH ×2 (05:38→17:13)
[2021-08-23] MEDS: CEFEPIME 1,000 MG/SWFI 10 ML IV PUSH IV SCH ×6 (05:38→19:53)
[2021-08-23 07:03] VITALS: BP 169/60
[2021-08-23] MEDS: NOREPINEPHRINE 8 MG/250 ML 250 ML IV SCH ×2 (07:15→21:46)
--- NOTE | 2021-08-23 07:31 | Diagnostic Imaging Report ---
Indication: Dyspnea. Comparison: 08/21/2021. Discussion: Single portable semiupright view of the chest was obtained. Severe diffuse pulmonary infiltrates are again noted. Enteric tube, endotracheal tube, and right-sided PICC line are stable. Suspect elevated right hemidiaphragm, stable. Heart borders are obscured. No pneumothorax or other free air. No osseous abnormality. Impression: 1. Stable chest. Dictated by: Dictated on workstation # [id number]
--- NOTE | 2021-08-23 08:05 | Progress Note - Hospitalist ---
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 He is unvaccinated. Patient was found to have severe hyponatremia of 123 and elevated white count of 14,000. Patient was seen by eICU and I appreciate their management. Patient appears to have high risk for ventilation. Subjective/Events-last exam Patient still intubated Had a bradycardic episode but it resolved Changed IV fluids Arthrocentesis fluid no growth to date maintained on Vanco and cefepime Keppra maintained no further seizures Focused Exam Lactate Level 08/21/21 14:15: Lactic Acid Level 2.79*H 08/21/21 19:05: Lactic Acid Level 1.61 Time of Focused Exam: 07:30 Objective Exam Vital Signs Vital Signs Date Time Temp Pulse Resp B/P (MAP) Pulse Ox O2 Delivery O2 Flow Rate FiO2 08/24/21 05:00 89 28 89 08/24/21 04:00 Mechanical Ventilator 80 08/24/21 01:55 136/60 08/24/21 00:00 36.9 80.00 Capillary Refill : Less Than 3 Seconds General Appearance: No Apparent Distress, WD/WN, Chronically ill, Other (Sedated and intubated) Respiratory: No Accessory Muscle Use, No Respiratory Distress, Decreased Breath Sounds Cardiovascular: Regular Rate, Rhythm Results/Procedures Lab Laboratory Tests 08/24/21 04:45 Patient resulted labs reviewed. Assessment/Plan Assessment and Plan Assess & Plan/Chief Complaint Assessment: Acute hypoxic respiratory failure COVID-19 pneumonia high risk for intubation and within 2 weeks History of obstructive sleep apnea no longer used CPAP only mouth device Hyponatremia now resolved Leukocytosis Plan depletion causing elevated lactic acid now resolved Pulmonary embolism on therapeutic dose of Lovenox Left knee effusion status post arthrocentesis on 08/21/[address] Foss New onset seizure maintained on Keppra Plan: ICU Monitor closely High risk for intubation and 08/16/2021: Continue supportive care Heparin drip High risk for intubation Maintain on Vapotherm 08/21/2021: Await culture from arthrocentesis Empiric antibiotic in case it to septic joint 08/22/2021: Await joint fluid culture IV antibiotics empirically 08/23/2021: Keppra Antibiotics Await arthrocentesis culture Critical Care Critically Ill Patient Diagnosis/Problems Diagnosis/Problems (1) COVID Status: Acute (2) Acute respiratory failure with hypoxia Status: Acute IDALIA CARLSON DO Aug 23, 2021 08:05
[2021-08-23] MEDS: PANTOPRAZOLE 40 MG (PROTONIX) VIAL IV SCH ×2 (08:20→19:53)
[2021-08-23] MEDS: MIDAZOLAM DRIP PRE-MIX 100 ML IV SCH ×2 (08:24→17:14)
[2021-08-23] MEDS ORDERED: FUROSEMIDE 40 MG/4 ML INJ (LASIX) IVP ONE (10:30)
--- NOTE | 2021-08-23 10:30 | Tele-ICU Progress Note ---
Subjective Date Seen by a Provider: Aug 23, 2021 Time Seen by a Provider: 10:30 Sepsis Event Evaluation Height, Weight, BMI Height: 0'70.00" Weight: 159lbs. oz. 72.602134iv; 36.50 BMI Method: Focused Exam Lactate Level 08/21/21 14:15: Lactic Acid Level 2.79*H 08/21/21 19:05: Lactic Acid Level 1.61 Time of Focused Exam: 07:30 Exam Exam Patient acknowledged, consented, and participated in this virtual visit which was conducted using real time audio/video Vital Signs Date Time Temp Pulse Resp B/P (MAP) Pulse Ox O2 Delivery O2 Flow Rate FiO2 08/23/21 10:00 36.8 44 28 97 Mechanical Ventilator 80.00 08/23/21 09:48 Mechanical Ventilator 80.00 08/23/21 09:00 36.8 38 28 98 Mechanical Ventilator 100.00 08/23/21 08:34 97 Mechanical Ventilator 80 08/23/21 08:24 43 28 169/60 08/23/21 08:00 36.9 43 28 100 Mechanical Ventilator 100.00 08/23/21 07:15 35 169/60 08/23/21 07:03 35 28 100 100 08/23/21 07:00 51 08/23/21 07:00 36.9 34 28 100 Mechanical Ventilator 100.00 08/23/21 06:00 36.9 40 28 100 Mechanical Ventilator 100.00 08/23/21 05:56 Mechanical Ventilator 100.00 08/23/21 05:00 36.9 39 28 97 Mechanical Ventilator 80.00 08/23/21 04:00 96 Mechanical Ventilator 80 08/23/21 04:00 37.0 44 28 93 Mechanical Ventilator 80.00 08/23/21 03:00 37.0 38 28 97 Mechanical Ventilator 80.00 08/23/21 02:28 39 28 96 80 08/23/21 02:00 37.1 40 28 99 Mechanical Ventilator 80.00 08/23/21 01:00 37.1 39 28 98 Mechanical Ventilator 80.00 08/23/21 01:00 40 08/23/21 00:00 37.1 41 28 97 Mechanical Ventilator 80.00 08/22/21 23:59 96 Mechanical Ventilator 80 08/22/21 23:56 53 28 147/59 08/22/21 23:00 37.1 45 28 93 Mechanical Ventilator 80.00 08/22/21 23:00 53 28 92 80 08/22/21 22:00 37.1 49 28 100 Mechanical Ventilator 80.00 08/22/21 21:00 37.1 40 28 98 Mechanical Ventilator 80.00 08/22/21 20:00 96 Mechanical Ventilator 80 08/22/21 20:00 37.1 41 28 95 Mechanical Ventilator 80.00 08/22/21 19:20 68 28 90 80 08/22/21 19:00 Mechanical Ventilator 80.00 08/22/21 19:00 37.2 43 29 98 Mechanical Ventilator 80.00 08/22/21 19:00 43 08/22/21 18:11 38 114/47 08/22/21 18:00 37.1 41 28 98 Mechanical Ventilator 75.00 08/22/21 17:00 37.2 38 25 97 Mechanical Ventilator 75.00 08/22/21 16:18 48 28 114/47 08/22/21 16:13 96 Mechanical Ventilator 60 08/22/21 16:00 37.1 40 28 96 Mechanical Ventilator 75.00 08/22/21 15:00 36.9 48 28 93 Mechanical Ventilator 75.00 08/22/21 14:10 46 30 96 60 08/22/21 14:00 37.1 44 30 98 Mechanical Ventilator 75.00 08/22/21 13:00 39 08/22/21 13:00 37.1 45 30 94 Mechanical Ventilator 75.00 08/22/21 12:00 37.0 37 31 99 Mechanical Ventilator 75.00 08/22/21 12:00 93 Mechanical Ventilator 60 08/22/21 11:00 36.9 46 28 94 Mechanical Ventilator 75.00 08/22/21 10:50 51 28 96 75 I & O 08/23/21 07:00 Intake Total 2140 ml Output Total 1925 ml Balance 215 ml Height & Weight Height: 0'70.00" Weight: 159lbs. oz. 72.674266uz; 36.50 BMI Method: General Appearance: Chronically ill, Obese, Other (Sedated and intubated) HEENT: Moist Mucous Membranes, Other (pupils pinpoint and reactive to light.) Neck: Normal Inspection, Non Tender Respiratory: Lungs Clear, Normal Breath Sounds Cardiovascular: Regular Rate, Rhythm Capillary Refill: Less Than 3 Seconds Gastrointestinal: normal bowel sounds (hypoactive but present), non tender, soft, other (graves catheter in place, no cellulitis at genitalia) Extremity: Other (Left knee edematous and red) Neurologic/Psychiatric: No Alert Skin: Normal Color, Warm/Dry Results Lab Laboratory Tests 08/22/21 03:10 08/23/21 03:55 Assessment/Plan Assessment/Plan (Tele-ICU Physician , Progress Note ) Available chart/ vitals / labs / Images reviewed Video assessment done using teleICU camera, rest of exam as per RN Discussed with RN , EXAM PER RN Events overnight : Afebrile I/O = pos 2 L last 48 H Drips: versed 10 and fentanyl 400 NS 83 Pressors: , hemodynamically stable Consultants: Hospital course: 08/14 - COVID , 7L o2 , IV Zosyn, Decadron, CT -CTA also showe small PE 08/16- VT 40L/100%. 08/17 - BIPAP 05/11 0 100% , rr 35 , TV 800 , MV 29L 08/18 - proned almost all the time , s/p diuresis 1.7 L 08/17 - no change in FiO2 - INTUBATED 08/21-08/21 - arthrocentesis left knee effusion, additional episode 08/21 08/22 - CT head - neg 08/23 -AC 100% 28 500 + 10 - very agitated if try down sedation A/P AHRF / ARDS due to severe COVID19 -INtubated 08/18 , AC 80% 28 500 + 10 -prone position - not tolerating - conservative fluid strategy , lasix x1 today EXAR-Ptxhumrirba-4/COVID-19 PNA ( Not vaccinated , symptoms 12 d [employer] with known COVID exposure - prednisone Zithromax , Dx 08/14 with hospitalizqtion ) -Actemra 08/16 -Steroids IV - started 4 mg q6 - 08/15 -Hypercoagulable state - small PE - on AC -lovenox 90 bid on 08/17 Smal segmental PE on CT 08/14 RLL ( no LE US done - heparin gtt - lovenox 90 bid on 08/17 Suspected superimposed bact PNA - CT 08/14 - no large infitrate - IV Zosyn started on 08/14 - 08/15 blood cx - neg -08/19 -Cx sputum - neg 08/21 - arthrocentesis left knee effusion hyperglycemia - mild - ISS , close f/up on steroids transaminitis likely due to COVID-19. - normalized HyperKalemia- resolved - on SAGAR as outPt - - as per PCP bradicardia - BP nl , follow elev TGL -340 on 08/22 - off propofol suspected Sx 08/18 , intubated after , additional episode 08/21 - CT head neg - Keppra 08/21 -> Hypernatremia - change IVF Lines : RIGHT picc 08/17 (Central Line Necessity Reviewed) Graves: + OG: Nutrition: TF tolerates Analgesia: Anxiety/ delirium VTE Prophylaxis: lovenox bid Stress Ulcer Prophylaxis: PPI Glycemic Control: Plans in collaboration with bedside consultants and IM MDs. Discussed with RN to reach out if any questions or concerns A total of 35 minutes of critical care time was devoted to this patient today, required to treat and/or prevent further deterioration of critical care condition ( as above) . NEIL JOHNSON MD Aug 23, 2021 10:30
[2021-08-23] MEDS: D5W 1000 ML IV SOLUTION 1,000 ML IV SCH ×2 (10:35→23:36)
[2021-08-23] MEDS: NS IV 1000 ML 1,000 ML IV SCH (10:40)
[2021-08-23 10:48] VITALS: BP 135/62
[2021-08-23] MEDS: VANCOMYCIN INJECTION 1,500 MG in NS IV 500 ML 500 ML IV SCH (11:55)
[2021-08-23] MEDS ORDERED: TROUGH ORDER-PHARMACY XX NR (12:30)
[2021-08-23 15:00] VITALS: BP 152/63
[2021-08-23 18:50] VITALS: BP 98/50
[2021-08-23 23:17] VITALS: BP 136/60
[2021-08-24] MEDS ORDERED: TROUGH ORDER-PHARMACY XX NR (00:30)
[2021-08-24] MEDS: CEFEPIME 1,000 MG/SWFI 10 ML IV PUSH IV SCH ×8 (01:04→18:45)
[2021-08-24] MEDS: VANCOMYCIN INJECTION 1,500 MG in NS IV 500 ML 500 ML IV SCH (01:04)
[2021-08-24] MEDS: fentaNYL DRIP PRE-MIX 250 ML IV SCH ×4 (01:55→22:42)
[2021-08-24] MEDS: MIDAZOLAM DRIP PRE-MIX 100 ML IV SCH ×3 (01:55→21:20)
[2021-08-24] MEDS: RT-ALBUTEROL HFA 8.5 GM INHALER IH SCH ×6 (02:38→22:20)
[2021-08-24 02:39] VITALS: BP 168/64
[2021-08-24 04:56] LABS: ABG BASE EXCESS -0.5 MMOL/L (-2.5-2.5); ABG OXYGEN SATURATION 97 % (94-100); ABG PCO2 30 MMHG (35-45); ABG PH 7.49 (7.37-7.43); ABG PO2 88 MMHG (79-93); ABG TCO2 23.5 MMOL/L (21.0-31.0); BASOPHILS % (AUTO) 0 % (0-10); EOSINOPHILS % (AUTO) 0 % (0-10); HEMATOCRIT 34 % (40-54); HEMOGLOBIN 11.5 g/dL (13.3-17.7); LYMPHOCYTES # (AUTO) 0.6 10^3/uL (1.0-4.0); LYMPHOCYTES % (AUTO) 4 % (12-44); MEAN CORPUSCULAR HEMOGLOBIN 31 pg (25-34); MEAN CORPUSCULAR HGB CONC 34 g/dL (32-36); MEAN CORPUSCULAR VOLUME 92 fL (80-99); MEAN PLATELET VOLUME 10.1 fL (9.0-12.2); MONOCYTES # (AUTO) 0.6 10^3/uL (0.0-1.0); MONOCYTES % (AUTO) 4 % (0-12); NEUTROPHILS # (AUTO) 13.6 10^3/uL (1.8-7.8); NEUTROPHILS % (AUTO) 90 % (42-75); PLATELET COUNT 182 10^3/uL (130-400); WHITE BLOOD COUNT 15.1 10^3/uL (4.3-11.0)
[2021-08-24 04:58] LABS: ALLENS TEST ART LINE; INSPIRED O2 80%; PATIENT TEMP 36.7; VENTILATOR YES
[2021-08-24 05:07] LABS: ALBUMIN 2.2 GM/DL (3.2-4.5); POTASSIUM 4.3 MMOL/L (3.6-5.0)
[2021-08-24 05:09] LABS: TOTAL PROTEIN 3.8 GM/DL (6.4-8.2)
[2021-08-24 05:11] LABS: BILIRUBIN,TOTAL 0.7 MG/DL (0.1-1.0)
[2021-08-24 05:12] LABS: PHOSPHORUS 2.7 MG/DL (2.3-4.7)
[2021-08-24 05:13] LABS: CREATININE SERUM 0.72 MG/DL (0.60-1.30)
[2021-08-24 05:16] LABS: MAGNESIUM 2.2 MG/DL (1.6-2.4)
[2021-08-24] MEDS: ENOXAPARIN 100 MG/1 ML (LOVENOX) SYR SC SCH ×2 (06:12→16:38)
[2021-08-24] MEDS: MAGNESIUM 1 GM/100 ML IVPB 100 ML IV SCH (06:30)
[2021-08-24] MEDS: POTASSIUM CL 10MEQ/50ML IVPB 50 ML IV SCH (06:30)
[2021-08-24] MEDS: KCL 20 MEQ TAB (K-DUR) PO SCH (06:30)
[2021-08-24] MEDS: inSUlin ASPART (NovoLOG) 1 UNIT/0.01 ML (CHARGE PER UNIT) SC SCH ×3 (06:31→18:27)
--- NOTE | 2021-08-24 07:04 | Occ Therapy Progress Note ---
Therapy Progress Note Pt is currently intubated. OT will continue to monitor pt's status and will initiate treatment when pt is medically stable to participate in skilled therapy. MAGGIE WAYNE Aug 24, 2021 07:04
--- NOTE | 2021-08-24 07:27 | Physical Therapy Progress Note ---
Therapy Progress Note Patient intubated and sedated. PT will continue to monitor patient. GILBERTO ARAGON PT Aug 24, 2021 07:27
[2021-08-24 07:31] VITALS: BP 96/44
[2021-08-24] MEDS: PANTOPRAZOLE 40 MG (PROTONIX) VIAL IV SCH ×2 (08:06→21:23)
[2021-08-24 10:05] VITALS: BP 121/46
--- NOTE | 2021-08-24 10:31 | Progress Note - Hospitalist ---
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 He is unvaccinated. Patient was found to have severe hyponatremia of 123 and elevated white count of 14,000. Patient was seen by eICU and I appreciate their management. Patient appears to have high risk for ventilation. Subjective/Events-last exam Pt still intubated No growth from arthrocentesis fluid Maintained on Vancomycin and Cefepime but after no growth to date will DC Vanco FIO2 decreased to 60% [place] evaluation Neurology evaluation indicated due to continued seizure-like activity but not a typical tonic-clonic type for example he has to bear down type of positioning then his O2 sat goes down for about 30 seconds to 58% and his face becomes very red Keppra maintained [facility] will start looking for neurology Focused Exam Lactate Level Time of Focused Exam: 07:30 Objective Exam Vital Signs Vital Signs Date Time Temp Pulse Resp B/P (MAP) Pulse Ox O2 Delivery O2 Flow Rate FiO2 08/25/21 04:48 50 132/54 08/25/21 04:00 36.6 08/25/21 04:00 95 Mechanical Ventilator 60 08/25/21 02:06 20 08/25/21 00:00 60.00 Capillary Refill : Less Than 3 Seconds General Appearance: Other (Sedated and intubated) Respiratory: No Accessory Muscle Use, No Respiratory Distress, Decreased Breath Sounds Cardiovascular: Regular Rate, Rhythm Results/Procedures Lab Laboratory Tests 08/25/21 03:45 Patient resulted labs reviewed. Assessment/Plan Assessment and Plan Assess & Plan/Chief Complaint Assessment: Acute hypoxic respiratory failure COVID-19 pneumonia high risk for intubation and within 2 weeks History of obstructive sleep apnea no longer used CPAP only mouth device Hyponatremia now resolved Leukocytosis Plan depletion causing elevated lactic acid now resolved Pulmonary embolism on therapeutic dose of Lovenox Left knee effusion status post arthrocentesis on 08/21/[address] Foss New onset seizure maintained on Keppra Plan: ICU Monitor closely High risk for intubation and 08/16/2021: Continue supportive care Heparin drip High risk for intubation Maintain on Vapotherm 08/21/2021: Await culture from arthrocentesis Empiric antibiotic in case it to septic joint 08/22/2021: Await joint fluid culture IV antibiotics empirically 08/23/2021: Keppra Antibiotics Await arthrocentesis culture 08/24/2021: Keppra Neurology eval with transfer required through [place] control DC vancomycin Critical Care Critically Ill Patient Diagnosis/Problems Diagnosis/Problems (1) COVID Status: Acute (2) Acute respiratory failure with hypoxia Status: Acute IDALIA CARLSON DO Aug 24, 2021 10:31
[2021-08-24] MEDS: NOREPINEPHRINE 8 MG/250 ML 250 ML IV SCH (10:36)
--- NOTE | 2021-08-24 11:39 | Tele-ICU Progress Note ---
Subjective Date Seen by a Provider: Aug 24, 2021 Time Seen by a Provider: 11:39 Sepsis Event Evaluation Height, Weight, BMI Height: 0'70.00" Weight: 159lbs. oz. 72.145103qg; 36.50 BMI Method: Focused Exam Lactate Level 08/21/21 14:15: Lactic Acid Level 2.79*H 08/21/21 19:05: Lactic Acid Level 1.61 Time of Focused Exam: 07:30 Exam Exam Patient acknowledged, consented, and participated in this virtual visit which was conducted using real time audio/video Vital Signs Date Time Temp Pulse Resp B/P (MAP) Pulse Ox O2 Delivery O2 Flow Rate FiO2 08/24/21 11:00 36.5 52 20 91 Mechanical Ventilator 60.00 08/24/21 10:05 48 20 94 60 08/24/21 10:00 36.6 46 28 94 Mechanical Ventilator 60.00 08/24/21 09:00 36.6 57 26 96 Mechanical Ventilator 60.00 08/24/21 08:08 60.00 08/24/21 08:00 36.7 46 28 99 Mechanical Ventilator 70.00 08/24/21 08:00 92 Mechanical Ventilator 60 08/24/21 07:31 57 28 98 75 08/24/21 07:30 Mechanical Ventilator 70.00 08/24/21 07:00 36.7 43 28 100 Mechanical Ventilator 80.00 08/24/21 06:43 42 08/24/21 06:00 36.7 43 28 99 Mechanical Ventilator 80.00 08/24/21 05:00 36.8 40 28 100 Mechanical Ventilator 80.00 08/24/21 05:00 89 28 89 08/24/21 04:00 36.7 46 28 100 Mechanical Ventilator 80.00 08/24/21 04:00 94 Mechanical Ventilator 80 08/24/21 03:00 36.9 41 28 97 Mechanical Ventilator 80.00 08/24/21 02:39 38 28 100 80 08/24/21 02:00 36.9 41 28 98 Mechanical Ventilator 80.00 08/24/21 01:55 40 28 136/60 08/24/21 01:00 36.9 37 28 100 Mechanical Ventilator 80.00 08/24/21 01:00 40 08/24/21 00:00 36.9 40 28 97 Mechanical Ventilator 80.00 08/23/21 23:59 94 Mechanical Ventilator 80 08/23/21 23:17 53 28 98 80 08/23/21 23:00 37.0 38 28 99 Mechanical Ventilator 80.00 08/23/21 22:00 37.0 38 28 100 Mechanical Ventilator 80.00 08/23/21 21:00 37.0 39 28 100 Mechanical Ventilator 80.00 08/23/21 20:00 36.9 46 28 100 Mechanical Ventilator 80.00 08/23/21 20:00 96 Mechanical Ventilator 80 08/23/21 19:00 36.8 50 28 100 Mechanical Ventilator 80.00 08/23/21 19:00 50 08/23/21 18:50 65 28 96 80 08/23/21 18:00 36.8 42 28 100 Mechanical Ventilator 75.00 08/23/21 17:14 45 28 152/63 08/23/21 17:00 36.8 45 28 93 Mechanical Ventilator 75.00 08/23/21 16:00 36.7 45 28 92 Mechanical Ventilator 75.00 08/23/21 16:00 93 Mechanical Ventilator 80 08/23/21 15:00 39 28 95 75 08/23/21 15:00 36.8 38 28 91 Mechanical Ventilator 75.00 08/23/21 14:00 36.8 51 28 99 Mechanical Ventilator 75.00 08/23/21 13:00 36.9 10 28 99 Mechanical Ventilator 75.00 08/23/21 13:00 42 08/23/21 12:00 36.9 46 28 95 Mechanical Ventilator 75.00 08/23/21 12:00 97 Mechanical Ventilator 80 I & O 08/24/21 07:00 Intake Total 3102.5 ml Output Total 4725 ml Balance -1622.5 ml Height & Weight Height: 0'70.00" Weight: 159lbs. oz. 72.888180uv; 36.50 BMI Method: General Appearance: No Apparent Distress, WD/WN, Chronically ill, Other (Sedated and intubated) HEENT: Moist Mucous Membranes, Other (pupils pinpoint and reactive to light.) Neck: Normal Inspection, Non Tender Respiratory: No Accessory Muscle Use, No Respiratory Distress, Decreased Breath Sounds Cardiovascular: Regular Rate, Rhythm Capillary Refill: Less Than 3 Seconds Gastrointestinal: normal bowel sounds (hypoactive but present), non tender, soft, other (graves catheter in place, no cellulitis at genitalia) Extremity: Other (Left knee edematous and red) Neurologic/Psychiatric: No Alert Skin: Normal Color, Warm/Dry Results Lab Laboratory Tests 08/23/21 03:55 08/24/21 04:45 Assessment/Plan Assessment/Plan (Tele-ICU Physician , Progress Note ) Available chart/ vitals / labs / Images reviewed Video assessment done using teleICU camera, rest of exam as per RN Discussed with RN , EXAM PER RN Events overnight : back in [place] Afebrile I/O = neg 1500 Drips: versed 10 and fentanyl 400 NS 83 Pressors: , hemodynamically stable Consultants: Hospital course: 08/14 - COVID , 7L o2 , IV Zosyn, Decadron, CT -CTA also showe small PE 08/16- VT 40L/100%. 08/17 - BIPAP 05/11 0 100% , rr 35 , TV 800 , MV 29L 08/18 - proned almost all the time , s/p diuresis 1.7 L 08/17 - no change in FiO2 - INTUBATED 08/21-08/21 - arthrocentesis left knee effusion, additional episode 08/21 08/22 - CT head - neg 08/23 -AC 100% 28 500 + 10 - very agitated if try down sedation - LASIX x1 --> UO4.5L 08/24 - LEVO back, AC 60% 28 500 + 8 PAP 32, NOT FOLLOWS COMMANDS A/P AHRF / ARDS due to severe COVID19 -INtubated 08/18 , AC 60% 28 500 + 8 PAP 32 - DECREASE RR TO 20 -prone position - not tolerating - conservative fluid strategy , lasix x1 08/23 - UO4.5L - WILL HOLD ADDDITIONAL DIURETICS TODAY FWFK-Qucgosuwuov-6/COVID-19 PNA ( Not vaccinated , symptoms 12 d [employer] with known COVID exposure - prednisone Zithromax , Dx 08/14 with hospitalizqtion ) -Actemra 08/16 -Steroids IV - started 4 mg q6 - 08/15 -Hypercoagulable state - small PE - on AC -lovenox 90 bid on 08/17 Shock - back on levo - monitor - possible to hypovolemia after diuresis Encephalopathy - not follows commands with decreasing sedation - CTH 08/22 WNL , on Keppra for Sz - attempt to decrease sedation for re-eval Smal segmental PE on CT 08/14 RLL ( no LE US done - heparin gtt - lovenox 90 bid on 08/17 Suspected superimposed bact PNA -CT 08/14 - no large infitrate - IV Zosyn started on 08/14- 7 days finished - Cefepime 08/21 - to finish 08/25 -Vanco 08/21 - stop 08/24 ( with all cx neg ( 08/15 , 08/21 blood cx - neg -08/19 -Cx sputum - neg 08/21 - arthrocentesis left knee effusion- neg ) hyperglycemia - mild - ISS , close f/up on steroids transaminitis likely due to COVID-19. - normalized HyperKalemia- resolved - on SAGAR as outPt - - as per PCP bradicardia - BP nl , follow elev TGL -340 on 08/22 - off propofol suspected Sx 08/18 , intubated after , additional episode 08/21 - CT head neg - Keppra 08/21 -> Hypernatremia - changed IVF - improved Lines : RIGHT picc 08/17 (Central Line Necessity Reviewed) Graves: + OG: Nutrition: TF tolerates Analgesia: Anxiety/ delirium VTE Prophylaxis: lovenox bid Stress Ulcer Prophylaxis: PPI Glycemic Control: Plans in collaboration with bedside consultants and IM MDs. Discussed with RN to reach out if any questions or concerns A total of 35 minutes of critical care time was devoted to this patient today, required to treat and/or prevent further deterioration of critical care condition ( as above) . NEIL JOHNSON MD Aug 24, 2021 11:39
[2021-08-24] MEDS: LORazepam INJ 2 MG/ML (ATIVAN) VIAL IVP PRN ×2 (12:46→16:38)
[2021-08-24 14:52] VITALS: BP 128/53
--- NOTE | 2021-08-24 14:55 | Tele-ICU Progress Note ---
Progress Note Called by RN: patient's versed drip was interrupted for few minutes , which resulted in following events: - patient " become stiff" - > vent was not delivering TV --> hypoxia ---> hypotension --> rigidity resolved in about 30 seconds --> few minutes recovery with improving oxygenation , BUT HAD REPEATED EVENTS - TOTAL 3 Ativan 2 mg IV given , no more events observed This is not classic Sx, but still concerning : started while off verced , stopped with benzo also patient was on Keppra day [address] Pascual - ideal will be to transfer to center with EEG and neurology , if possible for now : - will change to heparin and it will be discuss with anesthesiology for LP - cont same abx coverage for now - might need repeated head images - keep on versed gtt without attmpt to wean ( ok to decrease fentanyl gtt Focused Exam Lactate Level 08/21/21 19:05: Lactic Acid Level 1.61 Height, Weight, BMI Height: 0'70.00" Weight: 159lbs. oz. 72.552458vn; 36.50 BMI Method: Time of Focused Exam: 07:30 NEIL JOHNSON MD Aug 24, 2021 14:55
[2021-08-24] MEDS: D5W 1000 ML IV SOLUTION 1,000 ML IV SCH (16:37)
[2021-08-24] MEDS: LORazepam INJECTION FOR DRIP 20 MG in D5W 100 ML IVPB 90 ML IV SCH (18:27)
[2021-08-24 18:41] VITALS: BP 145/57
[2021-08-24 22:20] VITALS: BP_SYST 123; BP_SYST 423; BP_DIAS 54
[2021-08-25] MEDS: inSUlin ASPART (NovoLOG) 1 UNIT/0.01 ML (CHARGE PER UNIT) SC SCH ×4 (00:25→17:07)
[2021-08-25] MEDS: CEFEPIME 1,000 MG/SWFI 10 ML IV PUSH IV SCH ×6 (00:34→13:26)
[2021-08-25] MEDS: NOREPINEPHRINE 8 MG/250 ML 250 ML IV SCH ×2 (00:35→04:48)
[2021-08-25] MEDS: LORazepam INJECTION FOR DRIP 20 MG in D5W 100 ML IVPB 90 ML IV SCH ×4 (01:25→16:55)
[2021-08-25 02:06] VITALS: BP 116/46
[2021-08-25] MEDS: RT-ALBUTEROL HFA 8.5 GM INHALER IH SCH ×3 (02:06→09:04)
[2021-08-25 03:57] LABS: BASOPHILS % (AUTO) 0 % (0-10); EOSINOPHILS % (AUTO) 0 % (0-10); HEMATOCRIT 33 % (40-54); HEMOGLOBIN 10.8 g/dL (13.3-17.7); LYMPHOCYTES # (AUTO) 0.4 10^3/uL (1.0-4.0); LYMPHOCYTES % (AUTO) 2 % (12-44); MEAN CORPUSCULAR HEMOGLOBIN 31 pg (25-34); MEAN CORPUSCULAR HGB CONC 33 g/dL (32-36); MEAN CORPUSCULAR VOLUME 96 fL (80-99); MONOCYTES # (AUTO) 0.5 10^3/uL (0.0-1.0); MONOCYTES % (AUTO) 3 % (0-12); NEUTROPHILS # (AUTO) 17.1 10^3/uL (1.8-7.8); NEUTROPHILS % (AUTO) 93 % (42-75); PLATELET COUNT 205 10^3/uL (130-400); WHITE BLOOD COUNT 18.3 10^3/uL (4.3-11.0)
[2021-08-25 04:16] LABS: CALCIUM 6.2 MG/DL (8.5-10.1)
[2021-08-25 04:18] LABS: TOTAL PROTEIN 3.5 GM/DL (6.4-8.2)
[2021-08-25 04:19] LABS: BILIRUBIN,TOTAL 0.5 MG/DL (0.1-1.0)
[2021-08-25 04:21] LABS: CREATININE SERUM 0.65 MG/DL (0.60-1.30); PHOSPHORUS 2.7 MG/DL (2.3-4.7)
[2021-08-25 04:25] LABS: MAGNESIUM 1.9 MG/DL (1.6-2.4)
[2021-08-25] MEDS: ENOXAPARIN 100 MG/1 ML (LOVENOX) SYR SC SCH ×2 (04:31→16:55)
[2021-08-25] MEDS: D5W 1000 ML IV SOLUTION 1,000 ML IV SCH ×2 (04:31→16:56)
[2021-08-25] MEDS: fentaNYL DRIP PRE-MIX 250 ML IV SCH ×3 (04:48→12:08)
[2021-08-25] MEDS: POTASSIUM CL 10MEQ/50ML IVPB 50 ML IV SCH (05:38)
[2021-08-25] MEDS: MAGNESIUM 1 GM/100 ML IVPB 100 ML IV SCH (05:38)
[2021-08-25] MEDS: KCL 20 MEQ TAB (K-DUR) PO SCH (05:39)
--- NOTE | 2021-08-25 06:59 | Occ Therapy Progress Note ---
Therapy Progress Note Pt is currently intubated. OT will continue to monitor pt's status and initiate treatment when pt is medically stable to tolerate skilled therapy. MAGGIE WAYNE Aug 25, 2021 06:58
[2021-08-25 07:04] VITALS: BP 146/55
--- NOTE | 2021-08-25 07:23 | Physical Therapy Progress Note ---
Therapy Progress Note Patient intubated and sedated. PT will continue to monitor patient. GILBERTO ARAGON PT Aug 25, 2021 07:23
[2021-08-25] MEDS: MIDAZOLAM DRIP PRE-MIX 100 ML IV SCH ×2 (07:36→14:47)
--- NOTE | 2021-08-25 07:37 | Diagnostic Imaging Report ---
INDICATION: COVID positive. TECHNIQUE: Single view chest 4:15 AM. CORRELATION STUDY: 08/23/2021 FINDINGS: Endotracheal tube tip projects over the trachea, below the clavicles. Gastric tube is present, the tip cannot be visualized. Extensive bilateral pulmonary infiltrate-like opacities have adversely increased from prior Mediastinal structures are largely obscured. However, heart size appears to be enlarged. Mediastinum prominent. Vasculature is indeterminate. IMPRESSION: 1. Severe bilateral pulmonary infiltrate-like opacities overall increased and worsened from prior. Favors probable multilobe pneumonia. Other etiologies such as ARDS, hemorrhage and/or edema could also account for this. Report was faxed to [facility]/RN Infection Control by yoav at 7:36AM. Dictated by: Dictated on workstation # [id number]
[2021-08-25] MEDS: PANTOPRAZOLE 40 MG (PROTONIX) VIAL IV SCH (07:58)
[2021-08-25 09:05] VITALS: BP 157/62
--- NOTE | 2021-08-25 09:49 | Progress Note - Hospitalist ---
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 He is unvaccinated. Patient was found to have severe hyponatremia of 123 and elevated white count of 14,000. Patient was seen by eICU and I appreciate their management. Patient appears to have high risk for ventilation. Subjective/Events-last exam Pt had one seizure today already Covid swab obtained because he refused it in the ER Maintain on antibiotics Prognosis guarded Focused Exam Time of Focused Exam: 07:30 Objective Exam Vital Signs Vital Signs Date Time Temp Pulse Resp B/P (MAP) Pulse Ox O2 Delivery O2 Flow Rate FiO2 08/25/21 17:00 36.7 49 20 94 Mechanical Ventilator 60.00 08/25/21 16:00 60 Capillary Refill : Less Than 3 Seconds General Appearance: Other (Sedated and intubated) Respiratory: Lungs Clear, Decreased Breath Sounds Cardiovascular: Regular Rate, Rhythm Results/Procedures Lab Patient resulted labs reviewed. Assessment/Plan Assessment and Plan Assess & Plan/Chief Complaint Assessment: Acute hypoxic respiratory failure COVID-19 pneumonia high risk for intubation and within 2 weeks History of obstructive sleep apnea no longer used CPAP only mouth device Hyponatremia now resolved Leukocytosis Plan depletion causing elevated lactic acid now resolved Pulmonary embolism on therapeutic dose of Lovenox Left knee effusion status post arthrocentesis on 08/21/[address] Foss New onset seizure maintained on Keppra Plan: ICU Monitor closely High risk for intubation and 08/16/2021: Continue supportive care Heparin drip High risk for intubation Maintain on Vapotherm 08/21/2021: Await culture from arthrocentesis Empiric antibiotic in case it to septic joint 08/22/2021: Await joint fluid culture IV antibiotics empirically 08/23/2021: Keppra Antibiotics Await arthrocentesis culture 08/24/2021: Keppra Neurology eval with transfer required through [place] control DC vancomycin 08/25/2021: [place] control to help transfer to higher level of care Critical Care Critically Ill Patient Diagnosis/Problems Diagnosis/Problems (1) COVID Status: Acute (2) Acute respiratory failure with hypoxia Status: Acute IDALIA CARLSON DO Aug 25, 2021 09:49
[2021-08-25] MEDS: LORazepam INJ 2 MG/ML (ATIVAN) VIAL IVP PRN (09:52)
--- NOTE | 2021-08-25 11:29 | Tele-ICU Progress Note ---
Subjective Date Seen by a Provider: Aug 25, 2021 Time Seen by a Provider: 11:29 Sepsis Event Evaluation Height, Weight, BMI Height: 0'70.00" Weight: 159lbs. oz. 72.450956by; 36.50 BMI Method: Focused Exam Time of Focused Exam: 07:30 Exam Exam Patient acknowledged, consented, and participated in this virtual visit which was conducted using real time audio/video Vital Signs Date Time Temp Pulse Resp B/P (MAP) Pulse Ox O2 Delivery O2 Flow Rate FiO2 08/25/21 11:00 36.6 50 20 95 Mechanical Ventilator 60.00 08/25/21 10:00 36.4 51 19 94 Mechanical Ventilator 60.00 08/25/21 09:45 36.5 70 20 95 Mechanical Ventilator 60.00 08/25/21 09:30 36.5 43 20 97 Mechanical Ventilator 60.00 08/25/21 09:15 36.5 45 20 96 Mechanical Ventilator 60.00 08/25/21 09:05 45 20 99 60 08/25/21 09:00 36.5 41 20 99 Mechanical Ventilator 60.00 08/25/21 08:45 36.5 44 20 99 Mechanical Ventilator 60.00 08/25/21 08:32 48 20 118/45 08/25/21 08:30 36.5 42 20 99 Mechanical Ventilator 60.00 08/25/21 08:15 36.5 43 20 100 Mechanical Ventilator 60.00 08/25/21 08:00 36.4 52 20 100 Mechanical Ventilator 60.00 08/25/21 08:00 95 Mechanical Ventilator 60 08/25/21 07:45 36.4 52 20 100 Mechanical Ventilator 60.00 08/25/21 07:36 48 20 118/45 08/25/21 07:30 36.4 46 20 100 Mechanical Ventilator 60.00 08/25/21 07:15 36.4 45 20 100 Mechanical Ventilator 60.00 08/25/21 07:04 43 20 100 60 08/25/21 07:00 36.4 42 20 100 Mechanical Ventilator 60.00 08/25/21 06:24 43 08/25/21 06:00 36.4 48 20 95 Mechanical Ventilator 60.00 08/25/21 05:00 36.5 50 20 94 Mechanical Ventilator 60.00 08/25/21 04:48 50 132/54 08/25/21 04:00 36.6 10/5/21 04:00 95 Mechanical Ventilator 60 08/25/21 04:00 36.6 58 20 94 Mechanical Ventilator 60.00 08/25/21 03:00 36.6 60 20 94 Mechanical Ventilator 60.00 08/25/21 02:06 57 20 97 60 08/25/21 02:00 36.7 43 20 96 Mechanical Ventilator 60.00 08/25/21 01:25 52 20 104/42 08/25/21 01:00 47 08/25/21 01:00 36.7 47 20 96 Mechanical Ventilator 60.00 08/25/21 00:35 45 136/56 08/25/21 00:00 36.7 49 20 95 Mechanical Ventilator 60.00 08/24/21 23:40 91 Mechanical Ventilator 60 08/24/21 23:00 36.5 50 20 94 Mechanical Ventilator 60.00 08/24/21 22:20 52 22 97 60 08/24/21 22:00 36.5 48 20 94 Mechanical Ventilator 60.00 08/24/21 21:20 51 20 155/48 08/24/21 21:00 36.5 49 20 92 Mechanical Ventilator 60.00 08/24/21 20:00 36.5 08/24/21 20:00 36.5 48 20 100 Mechanical Ventilator 60.00 08/24/21 20:00 91 Mechanical Ventilator 60 08/24/21 19:00 36.4 52 20 91 Mechanical Ventilator 60.00 08/24/21 19:00 52 08/24/21 18:41 44 20 96 60 08/24/21 18:27 44 20 140/55 08/24/21 18:00 36.5 45 20 97 Mechanical Ventilator 60.00 08/24/21 17:04 36.8 08/24/21 17:00 36.7 46 20 95 Mechanical Ventilator 60.00 08/24/21 16:00 36.7 50 20 92 Mechanical Ventilator 60.00 08/24/21 16:00 92 Mechanical Ventilator 60 08/24/21 15:02 Mechanical Ventilator 60.00 08/24/21 15:00 36.6 48 15 100 Mechanical Ventilator 100.00 08/24/21 14:52 45 20 97 100 08/24/21 14:00 36.5 50 20 98 Mechanical Ventilator 100.00 08/24/21 13:00 36.5 53 18 100 Mechanical Ventilator 100.00 08/24/21 12:56 53 08/24/21 12:40 Mechanical Ventilator 100.00 08/24/21 12:30 54 20 106/47 08/24/21 12:00 92 Mechanical Ventilator 60 08/24/21 12:00 36.5 52 20 90 Mechanical Ventilator 60.00 I & O 08/25/21 07:00 Intake Total 3935.5 ml Output Total 3075 ml Balance 860.5 ml Height & Weight Height: 0'70.00" Weight: 159lbs. oz. 72.166764rh; 36.50 BMI Method: General Appearance: Other (Sedated and intubated) HEENT: Moist Mucous Membranes, Other (pupils pinpoint and reactive to light.) Neck: Normal Inspection, Non Tender Respiratory: No Accessory Muscle Use, No Respiratory Distress, Decreased Breath Sounds Cardiovascular: Regular Rate, Rhythm Capillary Refill: Less Than 3 Seconds Gastrointestinal: normal bowel sounds (hypoactive but present), non tender, soft, other (graves catheter in place, no cellulitis at genitalia) Extremity: Other (Left knee edematous and red) Neurologic/Psychiatric: No Alert Skin: Normal Color, Warm/Dry Results Lab Laboratory Tests 08/24/21 04:45 08/25/21 03:45 Assessment/Plan Assessment/Plan (Tele-ICU Physician , Progress Note ) Available chart/ vitals / labs / Images reviewed Video assessment done using teleICU camera, rest of exam as per RN Discussed with RN , EXAM PER RN Events overnight : back in LEVO Afebrile I/O = pos 1600 Drips: versed 10 and fentanyl 400 NS 83 Pressors: , hemodynamically stable Consultants: Hospital course: 08/14 - COVID , 7L o2 , IV Zosyn, Decadron, CT -CTA also showe small PE 08/16- VT 40L/100%. 08/17 - BIPAP 05/11 0 100% , rr 35 , TV 800 , MV 29L 08/18 - proned almost all the time , s/p diuresis 1.7 L 08/17 - no change in FiO2 - INTUBATED 08/21-08/21 - arthrocentesis left knee effusion, additional episode 08/21 08/22 - CT head - neg 08/23 -AC 100% 28 500 + 10 - very agitated if try down sedation - LASIX x1 --> UO4.5L 08/24 - LEVO back, AC 60% 28 500 + 8 PAP 32, NOT FOLLOWS COMMANDS 08/24 -?GENERALIZED MUSCLE SPAM _ vent was not delivering TV --> hypoxia ---> hypotension --> rigidity resolved in about 30 seconds --> few minutes recovery with improving oxygenation , BUT HAD REPEATED EVENTS - TOTAL 3 - ? seizure 08/25 -AC 60% 20 500 + 8 A/P AHRF / ARDS due to severe COVID19 -INtubated 08/18 , AC 60% 20 500 + 8 PAP 32 -prone position - not tolerating - conservative fluid strategy , lasix x1 08/23 - UO4.5L - WILL HOLD ADDDITIONAL DIURETICS TODAY - on levo [id number]/COVID-19 PNA ( Not vaccinated , symptoms 12 d [employer] with known COVID exposure - prednisone Zithromax , Dx 08/14 with hospitalization ) -Actemra 08/16 -Steroids IV - started 4 mg q6 - 08/15, now on 4 q12 -Hypercoagulable state - small PE - on AC -lovenox 90 bid on 08/17 Shock - back on levo - monitor - possible to hypovolemia after diuresis SEIZURE, suspected first 08/18 , intubated after , additional episode 08/21 - reportedly had Sz onset this summer withouit w/up done -decrease sedation -08/24 - RIGID WHOLE BODY - -vent was not delivering TV --> hypoxia ---> hypotension --> rigidity resolved in about 30 seconds --> few minutes recovery with improving oxygenation , BUT HAD REPEATED EVENTS - TOTAL 3 - placed ON ATIVAN GTT -CT head neg 08/21 - Keppra 08/21 -> -transfer to center with EEG and neurology attempted by Dr Pascual , if possible Encephalopathy - not follows commands with decreasing sedation - CTH 08/22 WNL , on Keppra for Sz -NO attempt to decrease sedation for re-eval Smal segmental PE on CT 08/14 RLL ( no LE US done - heparin gtt - lovenox 90 bid on 08/17 Suspected superimposed bact PNA -CT 08/14 - no large infitrate -Zosyn started on 08/14- 7 days - Cefepime 08/21 - 08/25 -Vanco 08/21 - 08/24 ( with all cx neg ( 08/15 , 08/21 blood cx - neg -08/19 -Cx sputum - neg 08/21 - arthrocentesis left knee effusion- neg ) hyperglycemia - mild - ISS , close f/up on steroids transaminitis likely due to COVID-19. - normalized HyperKalemia- resolved - on SAGAR as outPt - - as per PCP bradicardia - BP nl , follow elev TGL -340 on 08/22 - off propofol Hypernatremia - changed IVF - improved Lines : RIGHT picc 08/17 (Central Line Necessity Reviewed) Graves: + OG: Nutrition: TF tolerates Analgesia: Anxiety/ delirium VTE Prophylaxis: lovenox bid Stress Ulcer Prophylaxis: PPI Glycemic Control: Plans in collaboration with bedside consultants and IM MDs. Discussed with RN to reach out if any questions or concerns A total of 35 minutes of critical care time was devoted to this patient today, required to treat and/or prevent further deterioration of critical care cond ition ( as above) . NEIL JOHNSON MD Aug 25, 2021 11:29
[2021-08-25 14:22] VITALS: BP 110/58
--- NOTE | 2021-08-25 15:07 | Discharge Summary ---
Discharge Summary Hospital Course Was the Problem List Reviewed?: Yes Problems/Dx: (1) COVID Status: Acute (2) Acute respiratory failure with hypoxia Status: Acute Hospital Course Date of Admission: Aug 14, 2021 at 21:25 Admission Diagnosis : Family Physician/Provider: Campbell Ugalde Aprn Date of Discharge: 08/25/21 Discharge Diagnosis: Acute hypoxic respiratory failure due to COVID-19 pneumonia requiring intubation, new onset seizures requiring neurology management and transfer Hospital Course: Patient had a lengthy hospital course once he was admitted for COVID-19 pneumonia acute hypoxic respiratory failure and failed nasal cannula Vapotherm and BiPAP and required intubation. Bacterial pneumonia coverage provided. Decadron and anticoagulation per protocol. Left knee required arthrocentesis to rule out septic joint of which no growth to date on culture. New onset seizure was noted loaded with Keppra placed on Ativan drip but seizures became more numerous requiring neurology for higher level of care at [facility] graciously accepted the patient. Labs and Pending Lab Test: Laboratory Tests 08/24/21 17:42: Glucometer 118H 08/24/21 23:21: Glucometer 109 08/25/21 03:45: White Blood Count 18.3H, Red Blood Count 3.46L, Hemoglobin 10.8L, Hematocrit 33L , Mean Corpuscular Volume 96, Mean Corpuscular Hemoglobin 31, Mean Corpuscular Hemoglobin Concent 33, Red Cell Distribution Width 13.4, Platelet Count 205, Mean Platelet Volume 10.0, Immature Granulocyte % (Auto) 2, Neutrophils (%) (Auto) 93H, Lymphocytes (%) (Auto) 2L, Monocytes (%) (Auto) 3, Eosinophils (%) (Auto) 0, Basophils (%) (Auto) 0, Neutrophils # (Auto) 17.1H, Lymphocytes # (Auto) 0.4L, Monocytes # (Auto) 0.5, Eosinophils # (Auto) 0.0, Basophils # (Auto) 0.0, Immature Granulocyte # (Auto) 0.4H, Sodium Level 136, Potassium Level 4.0, Chloride Level 111H, Carbon Dioxide Level 19L, Anion Gap 6, Blood Urea Nitrogen 23H, Creatinine 0.65, Estimat Glomerular Filtration Rate 125, BUN/Creatinine Ratio 35, Glucose Level 202H, Calcium Level 6.2L, Corrected Calcium 7.8L, Phosphorus Level 2.7, Magnesium Level 1.9, Total Bilirubin 0.5, A spartate Amino Transf (AST/SGOT) 24, Alanine Aminotransferase (ALT/SGPT) 35, Alkaline Phosphatase 79, Total Protein 3.5L, Albumin 2.0L 08/25/21 05:55: Glucometer 147H 08/25/21 09:45: SARS-CoV-2 RNA (RT-PCR) DetectedH 08/25/21 12:01: Glucometer 134H Microbiology 08/21/21 Gram Stain - Final, Complete 08/21/21 Body Fluid Culture - Final, Complete No growth 08/21/21 Blood Culture - Preliminary, Resulted No growth 08/19/21 Gram Stain - Final, Complete 08/19/21 Sputum Culture - Final, Complete No growth Home Meds Active Reported Zinc 50 Mg Tablet 50 Mg PO DAILY Vitamin D3 (Cholecalciferol (Vitamin D3)) 25 Mcg Tablet 25 Mcg PO DAILY Vitamin C (Ascorbate Calcium) 500 Mg Tablet 500 Mg PO DAILY Atomoxetine HCl 40 Mg Capsule 40 Mg PO DAILY Atorvastatin Calcium 40 Mg Tablet 40 Mg PO DAILY Cyclobenzaprine HCl 10 Mg Tablet 10 Mg PO HS PRN Albuterol Sulfate 2.5 Mg/0.5 Ml Vial.neb 2.5 Mg INH Q6H PRN Lisinopril 20 Mg Tablet 20 Mg PO BID Meloxicam 15 Mg Tablet 15 Mg PO DAILY PRN Omeprazole 20 Mg Capsule.dr 20 Mg PO BIDAC Dexamethasone 4 Mg Tablet 6 Mg PO DAILY FILLED 06-09-2021 #11/7 DAY SUPPLY TAKES 1 & (4MG) TABS Hydrochlorothiazide 25 Mg Tablet 25 Mg PO DAILY Azithromycin 250 Mg Tablet 250 Mg PO DAILY FILLED 08-10-2021 #6/5 DAY SUPPLY Assessment/Pt Instructions [facility] for neurology Discharge Planning: <30 minutes discharge planning Discharge Physical Examination Vital Signs Vital Signs Date Time Temp Pulse Resp B/P (MAP) Pulse Ox O2 Delivery O2 Flow Rate FiO2 08/25/21 14:47 56 22 110/58 08/25/21 14:22 96 50 08/25/21 12:00 36.7 Mechanical Ventilator 60.00 Allergies: Coded Allergies: No Known Drug Allergies (Unverified , 09/18/11) Discharge Summary Date of Admission Aug 14, 2021 at 21:25 Date of Discharge Discharge Date: Aug 25, 2021 Admission Diagnosis Assessment: Acute hypoxic respiratory failure COVID-19 pneumonia high risk for intubation and within 2 weeks History of obstructive sleep apnea no longer used CPAP only mouth device Hyponatremia Leukocytosis Plan depletion causing elevated lactic acid Pulmonary embolism on heparin drip Plan: ICU Monitor closely High risk for intubation and Discharge Diagnosis Assessment: Acute hypoxic respiratory failure COVID-19 pneumonia high risk for intubation and within 2 weeks History of obstructive sleep apnea no longer used CPAP only mouth device Hyponatremia now resolved Leukocytosis Plan depletion causing elevated lactic acid now resolved Pulmonary embolism on therapeutic dose of Lovenox Left knee effusion status post arthrocentesis on 08/21/[address] Foss New onset seizure maintained on Keppra Plan: ICU Monitor closely High risk for intubation and 08/16/2021: Continue supportive care Heparin drip High risk for intubation Maintain on Vapotherm 08/21/2021: Await culture from arthrocentesis Empiric antibiotic in case it to septic joint 08/22/2021: Await joint fluid culture IV antibiotics empirically 08/23/2021: Keppra Antibiotics Await arthrocentesis culture 08/24/2021: Keppra Neurology eval with transfer required through [facility] control DC vancomycin (1) COVID Status: Acute (2) Acute respiratory failure with hypoxia Status: Acute IDALIA CARLSON DO Aug 25, 2021 15:07
[2021-08-25 16:55] VITALS: BP 110/58
== END 2021-08-25 18:25 | disposition short-term general hospital (02) | DRG 207 ==
LOC: EDUNIT# 17:40 → ER FS 17:42 → ICU 21:25
PROVIDERS: ADMIT Internal Medicine; ATTEND Family Medicine
PROC: 8E0ZXY6 Isolation (ICD-10-PCS; 2021-08-14)
PROC: 5A0945A Assistance with Respiratory Ventilation, 24-96 Consecutive Hours, High Flow/Velocity Cannula (ICD-10-PCS; 2021-08-14)
PROC: 02HV33Z Insertion of Infusion Device into Superior Vena Cava, Percutaneous Approach (ICD-10-PCS; 2021-08-17)
PROC: 5A1955Z Respiratory Ventilation, Greater than 96 Consecutive Hours (ICD-10-PCS; principal; 2021-08-18)
PROC: 0BH17EZ Insertion of Endotracheal Airway into Trachea, Via Natural or Artificial Opening (ICD-10-PCS; 2021-08-18)
PROC: 03HB33Z Insertion of Infusion Device into Right Radial Artery, Percutaneous Approach (ICD-10-PCS; 2021-08-19)
PROC: 0S9D3ZX Drainage of Left Knee Joint, Percutaneous Approach, Diagnostic (ICD-10-PCS; 2021-08-21)
DX: U07.1 COVID-19 (principal); J12.82 Pneumonia due to coronavirus disease 2019; J80 Acute respiratory distress syndrome; I26.99 Other pulmonary embolism without acute cor pulmonale; J15.9 Unspecified bacterial pneumonia; E87.1 Hypo-osmolality and hyponatremia; D68.69 Other thrombophilia; Z68.41 Body mass index [BMI] 40.0-44.9, adult; N17.9 Acute kidney failure, unspecified; E87.2 Acidosis; M00.9 Pyogenic arthritis, unspecified; R57.9 Shock, unspecified; G93.40 Encephalopathy, unspecified; E87.0 Hyperosmolality and hypernatremia; E87.5 Hyperkalemia; H54.7 Unspecified visual loss; H91.90 Unspecified hearing loss, unspecified ear; R33.9 Retention of urine, unspecified; G47.33 Obstructive sleep apnea (adult) (pediatric); R73.9 Hyperglycemia, unspecified; R00.1 Bradycardia, unspecified; M25.462 Effusion, left knee; G40.909 Epilepsy, unspecified, not intractable, without status epilepticus; E78.1 Pure hyperglyceridemia; E66.01 Morbid (severe) obesity due to excess calories; F17.210 Nicotine dependence, cigarettes, uncomplicated; Z79.899 Other long term (current) drug therapy
CPT/HCPCS: 36415; 36569; 36600; 70450; 71045; 71275; 73562; 76937; 80048; 80053; 80202; 82728; 82805; 82945; 82947; 83605; 83615; 83735; 83880; 84100; 84157; 84478; 84484; 85007; 85025; 85027; 85384; 85610; 85730; 86141; 87040; 87070; 87081; 87205; 87636; 89051; 89060; 93005; 93041; 94002; 94003; 94640; 94660; 94664; 94799; 96361; 96365; 96375; 99291